=== PATIENT | female | born 1935 | race Caucasian/White ===

== ENCOUNTER 2017-02-07 18:17 | Emergency (ER) | payer MEDICARE ==
[~2017-02-07] VITALS: Ht 165.1 cm; Wt 60.7 kg
[~2017-02-07 18:17] MED LIST: AMAN100 PO; B-CO1TAB5 PO; CARB25TA PO; COUM2.5T PO; FAMO20 PO; FURO20TA PO; HYDR-3533 PO; LOVA20TA PO; MIRA1.5T3 PO
[2017-02-07 18:20] VITALS: BP 146/78; PULSE 74; RESP 16; TEMP 97.8; O2SAT 96
[2017-02-07 19:10] VITALS: BP 137/63; PULSE 65; RESP 18; O2SAT 98
[2017-02-07] MEDS ORDERED: AMAN100C18 PO (19:17)
[2017-02-07] MEDS ORDERED: MULTTAB24 PO (19:17)
[2017-02-07] MEDS ORDERED: WARF-18 PO (19:17)
[2017-02-07] MEDS ORDERED: PRAM0.12 PO (19:17)
[2017-02-07] MEDS ORDERED: SUPETAB20 PO (19:17)
[2017-02-07] MEDS ORDERED: FURO1TAB62 PO (19:17)
[2017-02-07] MEDS ORDERED: ATEN25TA PO (19:17)
[2017-02-07] MEDS ORDERED: CARB25TA16 PO (19:17)
[2017-02-07] MEDS ORDERED: LOVA20TA PO (19:17)
--- NOTE | 2017-02-07 19:41 | RADHPO ---
EXAM DATE/TIME: 02/07/2017 19:32 [facility] COMPARISON: No previous studies available for comparison. INDICATIONS : Left wrist pain; fall today. MEDICAL HISTORY : None. SURGICAL HISTORY : None. ENCOUNTER: Initial ACUITY: 1 day PAIN SCORE: 9/10 LOCATION: Left wrist. FINDINGS: No definite fractures, or dislocations are identified. No definite lytic or sclerotic lesion is seen . Slight osteopenia is seen. 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 CONCLUSION: Chronic changes and no evidence for acute fracture. Nicholas Atkinson MD on February 07, 2017 at 19:39 Board Certified Radiologist. This report was verified electronically.
--- NOTE | 2017-02-07 19:56 | PD ---
HPI Chief Complaint: Fall Time Seen by Provider: 19:54 Travel History International Travel<30 days: No Contact w/Intl Traveler<30days: No Traveled to known affect area: No History of Present Illness HPI 82-year-old female presents to the emergency department by private transportation the care of her spouse for evaluation of left wrist injury status post non-syncopal slip and fall just prior to arrival to the emergency room for it. Patient states she was in her house using her long shoehorn to put on her shoes and lost her balance and fell down. Patient landed supporting her fall with her outstretched left upper extremity with injury to the left wrist. Patient states she does not believe it's broken became to the emergency room due to soreness to have an x-ray. Patient also reports she did hit her head there is bruising to the right parietal scalp. Patient states she did not lose consciousness. Patient denies any head pain neck pain back pain chest pain rib pain painful breathing shortness of breath abdominal pain pelvic pain or other extremity injury. Patient states she does take warfarin for history of atrial fibrillation. Patient reports that she falls frequently due to balance disturbance secondary to parkinsonism. Patient states no preceding dizziness headache visual disturbance chest pain palpitations shortness of breath sweats nausea vomiting abdominal pain or weakness and no post-fall complaint of dizziness headache visual disturbance chest pain palpitations shortness breath sweats nausea vomiting abdominal pain generalized weakness or focal upper extremity lower extremity numbness tingling or weakness. Patient does complain of left wrist pain without deformity or swelling. Patient reports for his pain is 8/10 in intensity. Ice was applied in triage. Patient states her last dose of warfarin was at 7:30 AM today. Patient does not report any increased bruising epistaxis gum bleeding hemoptysis hematemesis hematuria or melena hematochezia. [facility] Past Medical History Narrative Medical Warfarin therapy atrial fibrillation CVA Parkinson's disease GERD pacemaker hypertension cholecystectomy tonsillectomy breast augmentation; no tobacco use; nursing notes reviewed Hx Anticoagulant Therapy: Yes Arthritis: Yes Atrial Fibrillation: Yes (HX OF AFIB) Autoimmune Disease: No Blood Disorders: No Anxiety: No Depression: No Heart Rhythm Problems: Yes Cancer: Yes Cardiovascular Problems: Yes (AFIB) High Cholesterol: No Chest Pain: No Congestive Heart Failure: No Cerebrovascular Accident: Yes Diabetes: No Diminished Hearing: No Endocrine: No Gastrointestinal Disorders: Yes (REFLUX) GERD: Yes Genitourinary: No Hepatitis: No Hiatal Hernia: No Hypertension: Yes Immune Disorder: No Implanted Vascular Access Dvce: Yes Musculoskeletal: Yes (ARTHRITIS) Neurologic: Yes (PARKINSONS) Parkinson's Disease: Yes Psychiatric: No Reproductive: No Respiratory: Yes Integumentary: No Immunizations Current: Yes Migraines: No Radiation Therapy: Yes Seizures: No Sleep Apnea: No Thyroid Disease: No Ulcer: No Tetanus Vaccination: < 5 Years Influenza Vaccination: No ?: Not Menopausal: Yes Past Surgical History Abdominal Surgery: Yes (cholecystectomy) AICD: No Body Medical Devices: BREAST . Cardiac Surgery: Yes (PACEMAKER) Cholecystectomy: Yes Eye Surgery: Yes (CATARACT) Genitourinary Surgery: Yes (BLADDER LIFT) Joint Replacement: No Neurologic Surgery: No Pacemaker: Yes Thoracic Surgery: No Tonsillectomy: Yes Other Surgery: Yes (VALVE REGURG./ANGIOPLASTY OF LEFT LEG) Social History Alcohol Use: Yes (SMALL GLASS OF WINE DAILY ) Tobacco Use: No Substance Use: No Allergies-Medications (Allergen,Severity, Reaction): Coded Allergies: Betadine (Unverified Allergy, Severe, RASH, 02/07/17) TOPICAL Neomycin (Verified Allergy, Severe, RASH, 02/07/17) NEOSPORIN Neosporin (Verified Allergy, Severe, RASH, 02/07/17) CONFIRM? Procaine (Verified Allergy, Severe, RASH, 02/07/17) CONFIRM? Uncoded Allergies: MYCINS (Allergy, Severe, 02/24/16) TOPICAL ANTIBIOTICS (Allergy, Mild, 05/09/06) Reported Meds & Prescriptions Reported Meds & Active Scripts Active Reported Multi For Her (Multiple Vitamins W/ Minerals) 1 Tab Tab 1 Tab PO DAILY Warfarin 2.5 Mg Tab 2.5 Mg PO DAILY Lovastatin 20 Mg Tab 20 Mg PO DAILY Amantadine (Amantadine HCl) 100 Mg Cap 100 Mg PO TID Carbidopa-Levodopa ER 25-100 Mg Tab 1 Tab PO TID Pramipexole (Pramipexole Dihydrochloride) 0.125 Mg Tab 0.125 Mg PO TID Lasix (Furosemide) 20 Mg Tab 20 Mg PO DAILY Atenolol 25 Mg Tab 25 Mg PO BID Super B Complex Maxi (B-Complex W/ Folic Acid) 1 Tab 1 Tab PO DAILY Review of Systems Except as stated in HPI: all other systems reviewed are Neg General / Constitutional: No: Fever, Chills HENT: No: Congestion, Nosebleed, Gingival Bleeding Cardiovascular: No: Chest Pain or Discomfort Respiratory: No: Shortness of Breath, Hemoptysis Gastrointestinal: No: Nausea, Vomiting, Hematemesis, Hematochezia Genitourinary: No: Urgency, Frequency, Dysuria, Hematuria, Flank Pain Musculoskeletal: Positive: Limited ROM (left wrist), Pain (left wrist) Skin: No Rash Neurologic: No: Weakness, Dizziness, Syncope, Focal Abnormalities, Coordination Problem, Headache, Change in Mentation Psychiatric: No: Anxiety Hematologic/Lymphatic: No: Easy Bruising Physical Exam Narrative GENERAL: Well-developed well-nourished elderly female in no acute distress no respiratory distress SKIN: Warm and dry. HEAD: Atraumatic. Normocephalic except for small 1 cm area of ecchymosis to the right parietal scalp no scalp soft tissue swelling no tenderness to palpation no abrasion no laceration no bony step-off. EYES: Pupils equal and round. No scleral icterus. No injection or drainage. ENT: No nasal bleeding or discharge. Mucous membranes pink and moist. NECK: Trachea midline. No JVD. No midline tenderness to direct palpation along the cervical spine no bony tenderness no step-off patient demonstrates supple range of motion about the exam stretcher and converses between her and medical staff. CARDIOVASCULAR: Regular rate and rhythm. Chest wall: Nontender to palpation no point bony tenderness. RESPIRATORY: No accessory muscle use. Clear to auscultation. Breath sounds equal bilaterally. GASTROINTESTINAL: Abdomen soft, non-tender, nondistended. Hepatic and splenic margins not palpable. MUSCULOSKELETAL: Extremities without clubbing, cyanosis, or edema. No obvious deformities. Attention left wrist chronic arthritic changes no soft tissue swelling no point tenderness to direct palpation no point tenderness to the anatomical snuffbox neurovascular tendon exam intact thumb apposition intact wrist extension and flexion intact. Proximally left upper extremity no forearm elbow upper arm or shoulder point tenderness soft tissue swelling deformity or decreased range of motion. NEUROLOGICAL: Awake and alert. No obvious cranial nerve deficits. Motor grossly within normal limits. Five out of 5 muscle strength in the arms and legs. Normal speech. PSYCHIATRIC: Appropriate mood and affect; insight and judgment normal. Data Data Last Documented VS Vital Signs Date Time Temp Pulse Resp B/P Pulse Ox O2 Delivery O2 Flow Rate FiO2 4/20/17 19:42 16 96 Room Air 02/07/17 19:10 65 137/63 02/07/17 18:[address] Brain W/O Iv Contrast(Rout) (02/07/17 ) Wrist, Complete ([id number]) (02/07/17 ) Ice/Cold Pack (02/07/17 19:23) Prothrombin Time / Inr (Pt) (02/07/17 19:23) Splint Or Brace Apply/Monitor (02/07/17 20:10) [facility] Medical Decision Making Medical Screen Exam Complete: Yes Emergency Medical Condition: Yes Medical Record Reviewed: Yes Differential Diagnosis Wrist sprain strain fracture, scalp contusion, minor CHI, ICH, skull fracture, Coumadin coagulopathy, exacerbation of parkinsonism, arrhythmia Narrative Course Discussed with patient and spouse plan for CT brain noncontrast x-ray of the left wrist and obtaining an INR; patient does not want any further testing such as urinalysis and EKG. Auscultation and palpation of pulse patient has regular rate and rhythm without ectopy. No recent urinary symptoms. @1955 Patient refuses to have been a puncture for specimen collection in order to have her INR checked area patient is on Coumadin/warfarin for history of atrial fibrillation. Patient also does not want to have CT brain noncontrast after hitting her head however discussion conducted with spouse at bedside and patient now agrees to have CT imaging of the brain. Patient continues to refuse to have INR checked. Imaging of the wrist has been performed this study has been read by radiologist Dr. Atkinson history identifies no acute bony injury specifically no fracture chronic degenerative changes and arthritic changes noted. Patient has been informed of wrist imaging results. @2019 [address] brain noncontrast imaging results read by radiologist Dr. Atkinson no acute process specifically no bleed or mass effect. Again patient offered to have INR checked due to risk of prolonged INR May the patient at risk for delayed bleed. This was all discussed in detail with the patient with the spouse at the bedside and patient continues to refuse to have her INR checked she is ready to go home; risk of delayed intracranial bleed also discussed as concern for not knowing her current INR. Patient is willing to have splint applied to wrist. The patient is encouraged to have INR checked and to return immediately to the emergency department for headache dizziness or any concerns. Diagnosis Primary Impression: Left wrist sprain Qualified Code: S63.502A - Left wrist sprain, initial encounter Additional Impression: Mild closed head injury Qualified Code: S09.90XA - Mild closed head injury, initial encounter Referrals: Primary Care Physician 1 day Patient Instructions: General Instructions Additional Instructions: Wear wrist splint use ice intermittently for next 12-24 hours to decrease swelling to wrist and scalp Follow head injury precautions 24 hours Follow-up with primary care provider call office in a.m. to schedule follow-up appointment Follow up with orthopedist for any persistent wrist pain Return to the emergency department for any concerns or change in condition May use acetaminophen/Tylenol as needed for pain affecting the wrist or scalp; do not use aspirin, ibuprofen, Advil, Motrin, Aleve, Naprosyn/naproxen Med/Other Pt SpecificInfo: No Change to Meds Disposition: 01 DISCHARGE HOME Condition: Stable Ca Davenport MD Feb 07, 2017 19:56
--- NOTE | 2017-02-07 20:13 | RADHPO ---
EXAM DATE/TIME: 02/07/2017 19:58 [facility] COMPARISON: MRI BRAIN W/O CONTRAST, December 04, 2015, 16:47. CT BRAIN W/O CONTRAST, February 15, 2016, 21:42. INDICATIONS : Mechanical fall. Frontal head trauma. RADIATION DOSE: 59.82 CTDIvol (mGy) MEDICAL HISTORY : Parkinson's. Cerebrovascular disease. SURGICAL HISTORY : Pacemaker. ENCOUNTER: Initial ACUITY: 1 day PAIN SCALE: 7/10 LOCATION: cranial TECHNIQUE: Multiple contiguous axial images were obtained of the head. Using automated exposure control and adj ustment of the mA and/or kV according to patient size, radiation dose was kept as low as reasonably a chievable to obtain optimal diagnostic quality images. FINDINGS: There is no evidence for intracranial hemorrhage, mass effect, mass lesions, or edema. The visualize d bony structures appear intact. Slight degree of brain atrophy is seen. Slight periventricular whit e matter changes are seen nonspecific mostly consistent with chronic small vessel ischemic changes. There are no signs of acute infarction for technique. There is also encephalomalacia in the left occi pital lobe chronic in nature at the site of prior infarction. CONCLUSION: Slight atrophic and small vessel ischemic changes without any evidence for acute hemorrhage or mass effect. Nicholas Atkinson MD on February 07, 2017 at 20:09 Board Certified Radiologist. This report was verified electronically.
== END 2017-02-07 20:54 | disposition home or self-care (01) ==
LOC: PHED 18:17
DX: S63.502A Unspecified sprain of left wrist, initial encounter (principal); S09.90XA Unspecified injury of head, initial encounter; I48.91 Unspecified atrial fibrillation; G20 Parkinson's disease; K21.9 Gastro-esophageal reflux disease without esophagitis; I10 Essential (primary) hypertension; Z79.01 Long term (current) use of anticoagulants; Z86.73 Personal history of transient ischemic attack (TIA), and cerebral infarction without residual deficits; Z95.0 Presence of cardiac pacemaker; W01.0XXA Fall on same level from slipping, tripping and stumbling without subsequent striking against object, initial encounter; Y93.89 Activity, other specified; Y92.009 Unspecified place in unspecified non-institutional (private) residence as the place of occurrence of the external cause; Y99.8 Other external cause status
CPT/HCPCS: 70450; 73110; 99284; L3908

== ENCOUNTER 2017-05-06 09:56 | Emergency (ER) | payer MEDICARE ==
[~2017-05-06] VITALS: Ht 162.6 cm; Wt 58.7 kg
[~2017-05-06 09:56] MED LIST changes: -AMAN100 PO; +AMAN100C18 PO; +ATEN25TA PO; -B-CO1TAB5 PO; -CARB25TA PO; +CARB25TA16 PO; -COUM2.5T PO; -FAMO20 PO; +FURO1TAB62 PO; -FURO20TA PO; -HYDR-3533 PO; -MIRA1.5T3 PO; +MULTTAB24 PO; +PRAM0.12 PO; +SUPETAB20 PO; +WARF-18 PO
[2017-05-06 10:04] VITALS: PULSE 85; RESP 14; TEMP 97.7; O2SAT 96
[2017-05-06] MEDS ORDERED: VITA150T PO (10:50)
[2017-05-06] MEDS ORDERED: AMAN100T PO (10:50)
[2017-05-06 11:00] VITALS: BP 176/88; PULSE 72; RESP 16; O2SAT 96
--- NOTE | 2017-05-06 11:26 | PD ---
HPI Chief Complaint: Skin Problem Time Seen by Provider: 11:10 Travel History International Travel<30 days: No Contact w/Intl Traveler<30days: No Traveled to known affect area: No History of Present Illness HPI 82 year-old female presents to the emergency room for evaluation of skin tear to the left elbow that occurred 2 days ago. Patient states she tripped over her feet in her RV struck her left elbow on the dresser drawer before striking her right middle back and then falling to the ground. She also got cut on the back. Patient cleaned her wound with hydrogen peroxide and then wrapped them with Band-Aids. States she has been changing it daily but it bleeds every time she removes Band-Aid. States she just started using nonstick dressings today. She is concerned because of how severe the wound is and how long it is taking to heal. States the wound on her back healed much quicker. She hit the back of her head but denies loss of consciousness. She denies any significant pain. He has been ambulatory since falling. No nausea, vomiting, headache, dizziness, blurry vision. She is not on blood thinners. PFSH Past Medical History Hx Anticoagulant Therapy: Yes Arthritis: Yes Atrial Fibrillation: Yes (HX OF AFIB) Autoimmune Disease: No Blood Disorders: No Anxiety: No Depression: No Heart Rhythm Problems: Yes Cancer: Yes Cardiovascular Problems: Yes (AFIB) High Cholesterol: No Chest Pain: No Congestive Heart Failure: No Cerebrovascular Accident: Yes Diabetes: No Diminished Hearing: No Endocrine: No Gastrointestinal Disorders: Yes (REFLUX) GERD: Yes Genitourinary: No Hepatitis: No Hiatal Hernia: No Hypertension: Yes Immune Disorder: No Implanted Vascular Access Dvce: Yes Musculoskeletal: Yes (ARTHRITIS) Neurologic: Yes (PARKINSONS) Parkinson's Disease: Yes Psychiatric: No Reproductive: No Respiratory: Yes Integumentary: No Immunizations Current: Yes Migraines: No Radiation Therapy: Yes Seizures: No Sleep Apnea: No Thyroid Disease: No Ulcer: No Tetanus Vaccination: Unknown ?: Not Menopausal: Yes Past Surgical History Abdominal Surgery: Yes (cholecystectomy) AICD: No Body Medical Devices: BREAST . Cardiac Surgery: Yes (PACEMAKER) Cholecystectomy: Yes Eye Surgery: Yes (CATARACT) Genitourinary Surgery: Yes (BLADDER LIFT) Joint Replacement: No Neurologic Surgery: No Pacemaker: Yes Thoracic Surgery: No Tonsillectomy: Yes Other Surgery: Yes (VALVE REGURG./ANGIOPLASTY OF LEFT LEG) Social History Alcohol Use: Yes (SMALL GLASS OF WINE DAILY ) Tobacco Use: No Substance Use: No Allergies-Medications (Allergen,Severity, Reaction): Coded Allergies: Betadine (Unverified Allergy, Severe, RASH, 02/07/17) TOPICAL Neomycin (Verified Allergy, Severe, RASH, 02/07/17) NEOSPORIN Neosporin (Verified Allergy, Severe, RASH, 02/07/17) CONFIRM? Procaine (Verified Allergy, Severe, RASH, 02/07/17) CONFIRM? Uncoded Allergies: MYCINS (Allergy, Severe, 02/24/16) TOPICAL ANTIBIOTICS (Allergy, Mild, 05/09/06) Reported Meds & Prescriptions Reported Meds & Active Scripts Active Reported Amantadine (Amantadine HCl) 100 Mg Tab 100 Mg PO TID Super B Complex (Vitamin B Complex Vit C No.4) 150 Mg Tablet 1,000 Mg PO DAILY Multi For Her (Multiple Vitamins W/ Minerals) 1 Tab Tab 1 Tab PO DAILY Lovastatin 20 Mg Tab 20 Mg PO DAILY Carbidopa-Levodopa ER 25-100 Mg Tab 1 Tab PO TID Pramipexole (Pramipexole Dihydrochloride) 0.125 Mg Tab 0.125 Mg PO TID Lasix (Furosemide) 20 Mg Tab 20 Mg PO DAILY Atenolol 25 Mg Tab 25 Mg PO BID Review of Systems Except as stated in HPI: all other systems reviewed are Neg Physical Exam Narrative GENERAL: Well-nourished, well-developed female in no acute distress. Afebrile. Ambulatory. SKIN: Focused skin assessment warm/dry. There is a healing superficial abrasion to the right upper back. There is a 6x3 cm skin tear to the left lateral elbow. No purulent drainage. There is slight bleeding. HEAD: Normocephalic. EYES: No scleral icterus. No injection or drainage. EARS: Bilateral pinnae and external canals appear within normal limits. Bilateral tympanic membranes without erythema, dullness or perforation. No hemotympanum. NECK: Supple, trachea midline. No JVD or lymphadenopathy. CARDIOVASCULAR: Regular rate and rhythm without murmurs, gallops, or rubs. RESPIRATORY: Breath sounds equal bilaterally. No accessory muscle use. MUSCULOSKELETAL: No cyanosis, or edema. Full range of motion in upper and lower extremities. Strength 5/5 and equal in upper and lower extremities. Data Data Last Documented VS Vital Signs Date Time Temp Pulse Resp B/P Pulse Ox O2 Delivery O2 Flow Rate FiO2 05/06/17 11:00 72 16 176/88 96 Room Air 05/06/17 10:04 97.7 [facility] Medical Decision Making Medical Screen Exam Complete: Yes Emergency Medical Condition: Yes Medical Record Reviewed: Yes Differential Diagnosis Laceration, abrasion, skin tear, wound Narrative Course 82 year-old female presents to the emergency room for evaluation of left elbow skin tear that happened 3 days ago. Denies any other complaints. Patient tripped and fell in her RV cutting her elbow on the dresser before hitting the ground. Patient had her head but denies loss of consciousness, headache, dizziness, visual changes, nausea, and vomiting. She is not on blood thinners. No focal neurological deficits or evidence of basilar skull fracture. She has full range of motion of upper and lower extremities. Ambulatory. There is a 3 x 6 cm skin tear of the left elbow that is slightly bleeding. No evidence of infection. Patient was reassured and discharged with wound care instructions. Told to follow up with her primary care physician in one week for recheck or return for worsening symptoms. She understands and agrees to plan. Diagnosis Primary Impression: Skin tear of left elbow without complication Qualified Code: S51.012A - Skin tear of left elbow without complication, initial encounter Referrals: Primary Care Physician Patient Instructions: General Instructions, Skin Tear (ED) Additional Instructions: Rest and drink plenty of fluids. Keep wound clean and dry. Wash with antibacterial soap and water daily. Apply nonstick dressing or Vaseline to prevent sticking of dressing to wound. Follow-up with a primary care physician. Return to the emergency room for worsening symptoms. Disposition: 01 DISCHARGE HOME Condition: Stable Tori Hernandez May 06, 2017 11:26
== END 2017-05-06 11:38 | disposition home or self-care (01) ==
LOC: PHED 09:56 → PHEFT 11:38
DX: S51.012A Laceration without foreign body of left elbow, initial encounter (principal); W18.09XA Striking against other object with subsequent fall, initial encounter; Y93.89 Activity, other specified; Y92.029 Unspecified place in mobile home as the place of occurrence of the external cause
CPT/HCPCS: 99282

== ENCOUNTER 2017-05-28 13:33 | Emergency (ER) | payer MEDICARE ==
[~2017-05-28 13:33] MED LIST changes: -AMAN100C18 PO; +AMAN100T PO; -SUPETAB20 PO; +VITA150T PO; -WARF-18 PO
[2017-05-28 13:41] VITALS: BP 142/66; PULSE 80; RESP 18; TEMP 97.7; O2SAT 96
[2017-05-28] MEDS ORDERED: LIDOCAINE HCL 1% 50 ML VIAL INFIL ONE (14:00)
--- NOTE | 2017-05-28 14:05 | PD ---
HPI Chief Complaint: Fall Time Seen by Provider: 14:01 Travel History International Travel<30 days: No Contact w/Intl Traveler<30days: No Traveled to known affect area: No History of Present Illness HPI 82-year-old female presents to the emergency room via ambulance for evaluation of laceration to her nose and left second finger after trip and fall just prior to arrival. Patient tripped over her own feet and fell forward striking her nose on the ramp to her trailer. Denies loss of consciousness, headache, nausea , vomiting, dizziness, altered mental status, or visual changes. Patient stood up and got immediately into the stretcher and has not attempted to walk since then. She denies any other pain including neck pain, back pain, hip pain, upper or lower extremity pain. She is on daily aspirin. PFSH Past Medical History Hx Anticoagulant Therapy: Yes Arthritis: Yes Atrial Fibrillation: Yes (HX OF AFIB) Autoimmune Disease: No Blood Disorders: No Anxiety: No Depression: No Heart Rhythm Problems: Yes Cancer: Yes Cardiovascular Problems: Yes (AFIB) High Cholesterol: No Chest Pain: No Congestive Heart Failure: No Cerebrovascular Accident: Yes Diabetes: No Diminished Hearing: No Endocrine: No Gastrointestinal Disorders: Yes (REFLUX) GERD: Yes Genitourinary: No Hepatitis: No Hiatal Hernia: No Hypertension: Yes Immune Disorder: No Implanted Vascular Access Dvce: Yes Musculoskeletal: Yes (ARTHRITIS) Neurologic: Yes (PARKINSONS) Parkinson's Disease: Yes Psychiatric: No Reproductive: No Respiratory: Yes Integumentary: No Immunizations Current: Yes Migraines: No Radiation Therapy: Yes Seizures: No Sleep Apnea: No Thyroid Disease: No Ulcer: No Tetanus Vaccination: Unknown ?: Not Menopausal: Yes Past Surgical History Abdominal Surgery: Yes (cholecystectomy) AICD: No Body Medical Devices: BREAST . Cardiac Surgery: Yes (PACEMAKER) Cholecystectomy: Yes Eye Surgery: Yes (CATARACT) Genitourinary Surgery: Yes (BLADDER LIFT) Joint Replacement: No Neurologic Surgery: No Pacemaker: Yes Thoracic Surgery: No Tonsillectomy: Yes Other Surgery: Yes (VALVE REGURG./ANGIOPLASTY OF LEFT LEG) Social History Alcohol Use: Yes (SMALL GLASS OF WINE DAILY ) Tobacco Use: No Substance Use: No Allergies-Medications (Allergen,Severity, Reaction): Coded Allergies: Betadine (Unverified Allergy, Severe, RASH, 02/07/17) TOPICAL Neomycin (Verified Allergy, Severe, RASH, 02/07/17) NEOSPORIN Neosporin (Verified Allergy, Severe, RASH, 02/07/17) CONFIRM? Procaine (Verified Allergy, Severe, RASH, 02/07/17) CONFIRM? Uncoded Allergies: MYCINS (Allergy, Severe, 02/24/16) TOPICAL ANTIBIOTICS (Allergy, Mild, 05/09/06) Reported Meds & Prescriptions Reported Meds & Active Scripts Active Reported Amantadine (Amantadine HCl) 100 Mg Tab 100 Mg PO TID Super B Complex (Vitamin B Complex Vit C No.4) 150 Mg Tablet 1,000 Mg PO DAILY Multi For Her (Multiple Vitamins W/ Minerals) 1 Tab Tab 1 Tab PO DAILY Lovastatin 20 Mg Tab 20 Mg PO DAILY Carbidopa-Levodopa ER 25-100 Mg Tab 1 Tab PO TID Pramipexole (Pramipexole Dihydrochloride) 0.125 Mg Tab 0.125 Mg PO TID Lasix (Furosemide) 20 Mg Tab 20 Mg PO DAILY Atenolol 25 Mg Tab 25 Mg PO BID Review of Systems Except as stated in HPI: all other systems reviewed are Neg Physical Exam Narrative GENERAL: Well-developed, well-nourished female in no acute distress. Afebrile. Ambulatory. SKIN: Warm and dry. No erythema or ecchymosis. L-shaped 2 cm laceration to the right side of the nose. 1 cm skin tear of the left second finger over the PIP. HEAD: Atraumatic. Normocephalic. No mendoza sign or raccoon eyes. EYES: PERRL, EOMI, no discharge or injection. No scleral icterus. EARS: Bilateral external canals are occluded. NECK: Trachea midline. No JVD. No midline tenderness. Full range of motion. CARDIOVASCULAR: Regular rate and rhythm. No murmur appreciated. RESPIRATORY: No accessory muscle use. Clear to auscultation. Breath sounds equal bilaterally. No crackles, rales, wheezes, or rhonchi. BACK: No CVA tenderness. No rash. No point tenderness on palpation of the spine. NEUROLOGICAL: Awake and alert. Cranial nerves 2 through 12 intact. Motor grossly within normal limits. Normal speech. Strength 5/5 and equal in upper and lower extremities. PSYCHIATRIC: Appropriate mood and affect; insight and judgment normal. Data Data Last Documented VS Vital Signs Date Time Temp Pulse Resp B/P Pulse Ox O2 Delivery O2 Flow Rate FiO2 05/28/17 13:41 97.7 80 18 142/[address] Brain W/O Iv Contrast(Rout) (05/28/17 ) Ct Facial Bones W/O Iv Cont (05/28/17 ) Lidocaine 1% Inj (50 Ml) (Xylocaine 1% I (05/28/17 14:00) Tetanus/Diphtheria Tox Adult (Tetanus/Di (05/28/17 14:15) MDM Medical Decision Making Medical Screen Exam Complete: Yes Emergency Medical Condition: Yes Medical Record Reviewed: Yes Differential Diagnosis Fall, head injury, laceration, skin tear Narrative Course 82-year-old female presents to the emergency room for evaluation of laceration to the nose and left finger after trip and fall just prior to arrival. Patient tripped over her feet and fell forward striking her nose on the trailer ramp. She denies loss of consciousness, headache, dizziness, nausea, vomiting, or altered mental status. She does take 81 mg baby aspirin. She is well- appearing in the emergency room. No focal neurological deficits. Physical exam reveals a 1 cm laceration to the left second finger and bottom of the nose and a 2 cm laceration to the top of the nose. Denies any other complaints. CT of the head and face are negative for any abnormality. Lacerations are thoroughly cleansed and then repaired, see procedure for details. Patient discharged with wound care instructions and told to follow up with a primary care physician or return for worsening symptoms. She understands and agrees to plan. Procedures Procedure Narrative LACERATION LOCATION: Top of Nose LENGTH: 2 cm NUMBER OF STITCHES/NAEEM: 5 simple interrupted REPAIR: The area of the laceration was prepped with Betadine and sterilely draped. The laceration was infiltrated with 1% lidocaine. The wound was copiously irrigated and explored without evidence of foreign body, tendon injury or neurovascular injury. The wound was closed using 6-0 Prolene. This was a single layer repair. A sterile dressing was applied. The patient was advised to keep the dressing clean and dry. Patient tolerated the procedure well. LACERATION LOCATION: Bottom of Nose LENGTH: 1 cm NUMBER OF STITCHES/NAEEM: 2 simple interrupted REPAIR: The area of the laceration was prepped with Betadine and sterilely draped. The laceration was infiltrated with 1% lidocaine. The wound was copiously irrigated and explored without evidence of foreign body, tendon injury or neurovascular injury. The wound was closed using 6-0 Prolene. This was a single layer repair. A sterile dressing was applied. The patient was advised to keep the dressing clean and dry. Patient tolerated the procedure well. LACERATION LOCATION: Left second finger LENGTH: 2 cm NUMBER OF STITCHES/NAEEM: 3 simple interrupted REPAIR: The area of the laceration was prepped with Betadine and sterilely draped. The laceration was infiltrated with 1% lidocaine. The wound was copiously irrigated and explored without evidence of foreign body, tendon injury or neurovascular injury. The wound was closed using 5-0 Prolene. This was a single layer repair. A sterile dressing was applied. The patient was advised to keep the dressing clean and dry. Patient tolerated the procedure well. Diagnosis Primary Impression: Laceration of nose Qualified Code: S01.21XA - Laceration of nose, initial encounter Additional Impression: Finger laceration Qualified Code: S61.210A - Laceration of right index finger without foreign body without damage to nail, initial encounter Referrals: Primary Care Physician Patient Instructions: Facial Laceration (ED), Finger Laceration (ED), General Instructions Additional Instructions: Keep wound clean and dry. Apply triple antibiotic ointment daily. Sutures in the face should come out in 5 days. Sutures on the finger should come out in 10 days. Consider purchasing a walker. Apply ice to the affected area for 20 minutes at a time, as needed for pain and swelling. Follow-up with a primary care physician. Return to the emergency room for worsening symptoms. Med/Other Pt SpecificInfo: Prescription(s) given Disposition: 01 DISCHARGE HOME Condition: Stable Tori Hernandez May 28, 2017 14:05
[2017-05-28] MEDS ORDERED: TETANUS/DIPHTHERIA TOXOID ADULT 0.5 ML VIAL IM ONE (14:15)
--- NOTE | 2017-05-28 14:33 | RADRPT ---
EXAM DATE/TIME: 05/28/2017 14:21 [facility] COMPARISON: CT BRAIN W/O CONTRAST, February 07, 2017, 19:58. INDICATIONS : Fall. Hit nose on pavement. RADIATION DOSE: 62.51 CTDIvol (mGy) MEDICAL HISTORY : Cerebrovascular disease. Cardiovascular disease Hypertension.Anticoagulant therapy. SURGICAL HISTORY : Pacemaker. ENCOUNTER: Initial ACUITY: 1 day PAIN SCALE: 5/10 LOCATION: cranial TECHNIQUE: Multiple contiguous axial images were obtained of the head. Using automated exposure control and adj ustment of the mA and/or kV according to patient size, radiation dose was kept as low as reasonably a chievable to obtain optimal diagnostic quality images. DICOM format image data is available electro nically for review and comparison. FINDINGS: CEREBRUM: The ventricles are normal for age. No evidence of midline shift, mass lesion, hemorrhage or acute in farction. No extra-axial fluid collections are seen. There is a small old stable infarct in the left occipital lobe. There is a small stable calcification in the left frontal lobe. POSTERIOR FOSSA: The cerebellum and brainstem are stable. There is a stable old infarct involving the medial right cer ebellar hemisphere.. The 4th ventricle is midline. The cerebellopontine angle is unremarkable. EXTRACRANIAL: The visualized portion of the orbits is intact. SKULL: The calvaria is intact. No evidence of skull fracture. CONCLUSION: 1. Stable CT scan of the brain compared to the prior examination. 2. No focal or acute intracranial hemorrhage. 3. 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 Mo Chris MD on May 28, 2017 at 14:30 Board Certified Radiologist. This report was verified electronically.
--- NOTE | 2017-05-28 14:43 | RADRPT ---
EXAM DATE/TIME: 05/28/2017 14:21 [facility] COMPARISON: No previous studies available for comparison. INDICATIONS : Fall. Hit nose on pavement. RADIATION DOSE: 34.85 CTDIvol (mGy) MEDICAL HISTORY : Cardiovascular disease. Cerebrovascular disease. Hypertension.Anticoagulant therapy. SURGICAL HISTORY : Pacemaker. ENCOUNTER: Initial ACUITY: 1 day PAIN SCORE: 5/10 LOCATION: facial TECHNIQUE: Volumetric scanning of the facial bones was performed. Using automated exposure control and adjustme nt of the mA and/or kV according to patient size, radiation dose was kept as low as reasonably achiev able to obtain optimal diagnostic quality images. DICOM format image data is available electronicall y for review and comparison. FINDINGS: ORBITS: The orbital and infraorbital osseous structures are intact. The retroconal structures have a normal configuration. No radiopaque foreign bodies are seen. NASAL BONE: The nasal bone and maxillary spine are intact ZYGOMATIC ARCHES: Symmetric without evidence of fracture. SINUSES: Chronic sinus disease in the right maxillary sinus. Otherwise, the paranasal sinuses are clear. No ai r-fluid levels. NASAL CAVITY: Nasal septal deviation to the right. The nasal cavity is unremarkable. SOFT TISSUES: No radiopaque foreign bodies seen. No soft-tissue swelling is seen. INTRACRANIAL: No intracranial air seen. CRIBIFORM PLATE: Grossly intact. CONCLUSION: 1. No evidence of acute bony fracture involving the nasal bones. 2. Chronic right maxillary sinus disease. 3. Facial bones grossly intact. Mo Chris MD on May 28, 2017 at 14:38 Board Certified Radiologist. This report was verified electronically.
== END 2017-05-28 15:57 | disposition home or self-care (01) ==
LOC: PHEFT 13:33
DX: S01.21XA Laceration without foreign body of nose, initial encounter (principal); S61.211A Laceration without foreign body of left index finger without damage to nail, initial encounter; I48.91 Unspecified atrial fibrillation; I10 Essential (primary) hypertension; G20 Parkinson's disease; K21.9 Gastro-esophageal reflux disease without esophagitis; Z86.73 Personal history of transient ischemic attack (TIA), and cerebral infarction without residual deficits; Z79.82 Long term (current) use of aspirin; Z23 Encounter for immunization; Z95.0 Presence of cardiac pacemaker
CPT/HCPCS: 12001; 12013; 70450; 70486; 90471; 90714

== ENCOUNTER 2017-06-16 12:31 | Emergency (ER) | payer MEDICARE ==
[2017-06-16 12:36] VITALS: BP 156/72; PULSE 74; RESP 16; TEMP 98.2; O2SAT 97
--- NOTE | 2017-06-16 13:15 | PD ---
HPI . Scalp laceration Chief Complaint: Head Injury Time Seen by Provider: 12:58 Travel History International Travel<30 days: No Contact w/Intl Traveler<30days: No Traveled to known affect area: No History of Present Illness HPI Patient presents for treatment of a scalp laceration. She has frequent falls. She fell this morning striking her head on the concrete. She denies loss of consciousness. She denies any symptoms of a head injury such as headache, blurred vision, nausea, altered mental status. As her last tetanus shot was just 2 weeks ago when she suffered another fall and laceration. She has a history of Parkinson's disease. She also has a history of atrial fibrillation and has been on Coumadin. She was taken off of Coumadin a couple weeks. PFSH Past Medical History Hx Anticoagulant Therapy: Yes Arthritis: Yes Atrial Fibrillation: Yes (HX OF AFIB) Autoimmune Disease: No Blood Disorders: No Anxiety: No Depression: No Heart Rhythm Problems: Yes Cancer: Yes Cardiovascular Problems: Yes (AFIB) High Cholesterol: No Chest Pain: No Congestive Heart Failure: No Cerebrovascular Accident: Yes Diabetes: No Diminished Hearing: No Endocrine: No Gastrointestinal Disorders: Yes (REFLUX) GERD: Yes Genitourinary: No Hepatitis: No Hiatal Hernia: No Hypertension: Yes Immune Disorder: No Implanted Vascular Access Dvce: Yes Musculoskeletal: Yes (ARTHRITIS) Neurologic: Yes (PARKINSONS) Parkinson's Disease: Yes Psychiatric: No Reproductive: No Respiratory: Yes Integumentary: No Immunizations Current: Yes Migraines: No Radiation Therapy: Yes Seizures: No Sleep Apnea: No Thyroid Disease: No Ulcer: No Tetanus Vaccination: < 5 Years Influenza Vaccination: Yes Menopausal: Yes Past Surgical History Abdominal Surgery: Yes (cholecystectomy) AICD: No Body Medical Devices: BREAST AUG.. Cardiac Surgery: Yes (PACEMAKER) Cholecystectomy: Yes Eye Surgery: Yes (CATARACT) Genitourinary Surgery: Yes (BLADDER LIFT) Joint Replacement: No Neurologic Surgery: No Pacemaker: Yes Thoracic Surgery: No Tonsillectomy: Yes Other Surgery: Yes (VALVE REGURG./ANGIOPLASTY OF LEFT LEG) Social History Alcohol Use: Yes (SMALL GLASS OF WINE DAILY ) Tobacco Use: No Substance Use: No Allergies-Medications (Allergen,Severity, Reaction): Coded Allergies: bacitracin (Unverified Allergy, Severe, RASH, 06/04/17) CONFIRM? gramicidin D (Unverified Allergy, Severe, RASH, 06/04/17) CONFIRM? neomycin (Unverified Allergy, Severe, RASH, 06/04/17) CONFIRM? polymyxin B (Unverified Allergy, Severe, RASH, 06/04/17) CONFIRM? povidone-iodine (Unverified Allergy, Severe, RASH, 06/04/17) TOPICAL procaine (Unverified Allergy, Severe, RASH, 06/04/17) CONFIRM? Uncoded Allergies: MYCINS (Allergy, Severe, 02/24/16) TOPICAL ANTIBIOTICS (Allergy, Mild, 05/09/06) Reported Meds & Prescriptions Reported Meds & Active Scripts Active Reported Amantadine (Amantadine HCl) 100 Mg Tab 100 Mg PO TID Super B Complex (Vitamin B Complex Vit C No.4) 150 Mg Tablet 1,000 Mg PO DAILY Multi For Her (Multiple Vitamins W/ Minerals) 1 Tab Tab 1 Tab PO DAILY Lovastatin 20 Mg Tab 20 Mg PO DAILY Carbidopa-Levodopa ER 25-100 Mg Tab 1 Tab PO TID Pramipexole (Pramipexole Dihydrochloride) 0.125 Mg Tab 0.125 Mg PO TID Lasix (Furosemide) 20 Mg Tab 20 Mg PO DAILY Atenolol 25 Mg Tab 25 Mg PO BID Review of Systems Except as stated in HPI: all other systems reviewed are Neg Eyes: No: Blurred Vision HENT: No: Headaches Gastrointestinal: No: Nausea Neurologic: No: Syncope, Focal Abnormalities, Headache, Change in Mentation Psychiatric: Positive: Disorder of Thought ( reports apparent hallucinations. He states that she talks to herself. This is not a new problem.) Physical Exam Narrative GENERAL: Awake and alert and in no acute distress. SKIN: Warm and dry. HEAD: She has about a 1 cm laceration to the posterior scalp. Bleeding is controlled. EYES: Pupils equal and round. Extraocular are intact. NECK: Trachea midline. Neck is nontender. Full range of motion without pain. CARDIOVASCULAR: Regular rate and rhythm. RESPIRATORY: No accessory muscle use. MUSCULOSKELETAL: No obvious deformities. No edema. NEUROLOGICAL: Awake and alert. No obvious cranial nerve deficits. Motor grossly within normal limits. Normal speech. PSYCHIATRIC: Appropriate mood and affect; insight and judgment normal. Data Data Last Documented VS Vital Signs Date Time Temp Pulse Resp B/P (MAP) Pulse Ox O2 Delivery O2 Flow Rate FiO2 06/16/17 12:36 98.2 74 16 156/72 (100) 97 Room Air Orders Orders Ct Brain W/O Iv Contrast(Rout) (06/16/17 13:05) MDM Medical Decision Making Medical Screen Exam Complete: Yes Emergency Medical Condition: Yes Medical Record Reviewed: Yes (medical history includes Parkinson's disease, hypertension, hyperlipidemia, atrial fibrillation, sick sinus syndrome and previous CVA.) Differential Diagnosis My differential diagnosis of head trauma includes but is not limited to scalp contusion, concussion, intracerebral hemorrhage. Narrative Course This patient presents with a scalp laceration. She is elderly and has been on anticoagulation until the recent past. Therefore, a head CT will be done rule out bleed. Last Impressions Head CT 06/16/17 1305 Signed Impressions: Service Date/Time: Friday, June 16, 2017 13:26 - CONCLUSION: No significant change has occurred. . Kendra Montes MD Procedures Procedure Narrative LACERATION LOCATION: Scalp LENGTH: 2 cm NUMBER OF STITCHES/NAEEM: 2 REPAIR: The area of the laceration was prepped with saline. The wound was closed using naeem. This was a single layer repair. Patient tolerated the procedure well. (She declined lidocaine) Diagnosis Primary Impression: Scalp laceration Qualified Codes: S01.01XA - Laceration without foreign body of scalp, initial encounter Patient Instructions: General Instructions, Laceration (DC) Additional Instructions: Clean the wound daily in the shower with a mild shampoo such as baby shampoo. See your doctor in 7 days for staple removal. Seek care sooner for redness, drainage, warmth, unusual pain. Disposition: 01 DISCHARGE HOME Condition: Stable Michelle Reynolds MD Jun 16, 2017 13:15
--- NOTE | 2017-06-16 13:38 | RADRPT ---
EXAM DATE/TIME: 06/16/2017 13:26 [facility] COMPARISON: CT BRAIN W/O CONTRAST, May 28, 2017, 14:21. INDICATIONS : Fall. RADIATION DOSE: 60.98 CTDIvol (mGy) MEDICAL HISTORY : Cardiovascular disease. Hypertension. Cerebrovascular disease. SURGICAL HISTORY : Pacemaker. ENCOUNTER: Initial ACUITY: 1 day PAIN SCALE: 3/10 LOCATION: cranial TECHNIQUE: Multiple contiguous axial images were obtained of the head. Using automated exposure control and adj ustment of the mA and/or kV according to patient size, radiation dose was kept as low as reasonably a chievable to obtain optimal diagnostic quality images. DICOM format image data is available electro nically for review and comparison. FINDINGS: CEREBRUM: There are stable focal areas of encephalomalacia involving the left occipital lobe and right cerebell um. The ventricles are normal in size and are midline. The escamilla-white matter demonstrates normal diff erentiation. No evidence of intra-axial or extra-axial fluid collection. No mass effect or midline sh ift. POSTERIOR FOSSA: The cerebellum and brainstem are intact. The 4th ventricle is midline. The cerebellopontine angle i s unremarkable. EXTRACRANIAL: The visualized portion of the orbits is intact. SKULL: The calvaria is intact. No evidence of skull fracture. CONCLUSION: No significant change has occurred. . Kendra Montes MD on June 16, 2017 at 13:35 Board Certified Radiologist. This report was verified electronically.
[2017-06-16 14:12] VITALS: BP 142/70; PULSE 72; RESP 18; O2SAT 97
[2017-06-17] MEDS ORDERED: METO25TA3 PO ×2 (14:58)
[2017-06-17] MEDS ORDERED: ASPI81CH CHEW (15:09)
== END 2017-06-16 14:12 | disposition home or self-care (01) ==
LOC: PHED 12:31
DX: S01.01XA Laceration without foreign body of scalp, initial encounter (principal); W19.XXXA Unspecified fall, initial encounter; I10 Essential (primary) hypertension; I25.10 Atherosclerotic heart disease of native coronary artery without angina pectoris; I48.91 Unspecified atrial fibrillation; K21.9 Gastro-esophageal reflux disease without esophagitis; M19.90 Unspecified osteoarthritis, unspecified site; G20 Parkinson's disease; Z79.01 Long term (current) use of anticoagulants; Z86.73 Personal history of transient ischemic attack (TIA), and cerebral infarction without residual deficits; Z95.0 Presence of cardiac pacemaker
CPT/HCPCS: 12001; 70450

== ENCOUNTER 2017-06-17 14:40 | Emergency (ER) | payer MEDICARE ==
[2017-06-17 14:45] VITALS: BP 152/85; PULSE 74; RESP 18; O2SAT 99
[2017-06-17] MEDS ORDERED: METO25TA3 PO ×2 (14:58)
[2017-06-17] MEDS ORDERED: ASPI81CH CHEW (15:09)
[2017-06-17] MEDS ORDERED: SODIUM CHLORIDE 0.9% FLUSH 10 ML FLUSH IVF PRN (15:15)
[2017-06-17 15:25] LABS: AUTOMATED NEUTROPHIL # 7.1 TH/MM3 (1.8-7.7); BASOPHIL # 0.1 TH/MM3 (0-0.2); BASOPHIL % 0.6 % (0.0-2.0); EOSINOPHIL # 0.2 TH/MM3 (0-0.4); EOSINOPHIL % 2.4 % (0.0-4.0); HEMATOCRIT 47.7 % (35.0-46.0); HEMO FLAGS DIFF FINAL; LYMPH % 18.3 % (9.0-44.0); LYMPHOCYTE # 1.9 TH/MM3 (1.0-4.8); MEAN CELL VOLUME 91.7 FL (80.0-100.0); MEAN CORPUSCULAR HEMOGLOBIN 30.3 PG (27.0-34.0); MONO % 8.1 % (0.0-8.0); NEUT % 70.6 % (16.0-70.0); PLATELET COUNT 206 TH/MM3 (150-450); RED CELL DISTRIBUTION WIDTH 13.5 % (11.6-17.2); WHITE BLOOD COUNT 10.1 TH/MM3 (4.0-11.0)
[2017-06-17 15:26] VITALS: O2SAT 100
[2017-06-17 15:30] LABS: CHLORIDE 105 MEQ/L (98-107); POTASSIUM 3.5 MEQ/L (3.5-5.1); SODIUM (NA) 142 MEQ/L (136-145)
[2017-06-17 15:33] LABS: ANION GAP 8 MEQ/L (5-15); MAGNESIUM 2.3 MG/DL (1.5-2.5)
[2017-06-17 15:34] LABS: BLOOD UREA NITROGEN 22 MG/DL (7-18)
[2017-06-17 15:35] LABS: APTT (PATIENT) 23.9 SEC (24.3-30.1); PROTHROMBIN TIME - PATIENT 10.5 SEC (9.8-11.6)
[2017-06-17 15:36] LABS: ALT (GPT) 23 U/L (10-53)
[2017-06-17 15:37] LABS: AST (GOT) 18 U/L (15-37); GLOMERULAR FILTRATION RATE 36 ML/MIN (>89)
[2017-06-17 15:38] LABS: TOTAL BILIRUBIN ADULT 0.5 MG/DL (0.2-1.0)
[2017-06-17 15:39] LABS: ALKALINE PHOSPHATASE 139 U/L (45-117)
[2017-06-17 15:41] LABS: CREATINE KINASE 62 U/L (26-192)
--- NOTE | 2017-06-17 15:43 | PD ---
HPI Chief Complaint: Dizziness Time Seen by Provider: 14:47 Travel History International Travel<30 days: No Contact w/Intl Traveler<30days: No Traveled to known affect area: No History of Present Illness HPI patient is a 82 year old female with a history of Parkinson's disease presents emergency department for evaluation chiefly of shortness of breath. Patient also states she's been having some dizziness symptoms feeling like she is going to lose her balance and fall. Patient comfortably by her and together 3 of us discussed that she has a history of frequent falls. She is also been apparently having some intermittent visual hallucinations. Denies any suicidal homicidal ideation. states that live in a trailer is difficult to refer her to use her walker. Recently she's been admitted to the emergency department for a fall impacting her head. She is also had other falls leading to abrasions but thankfully no severe injuries as of yet. To the patient's chief complaint of shortness of breath states been going on for the past few days. States she has a history of blood clots in her leg on the left and has an IVC filter placed. She states that her geological e logger took her off Coumadin recently. She also has a pacemaker and a history of atrial fibrillation. Patient denies any chest pain nausea vomiting abdominal pain focalized weakness or visual deficits. States she has not fallen since her last evaluation emergency Department. PFSH Past Medical History Hx Anticoagulant Therapy: Yes Arthritis: Yes Atrial Fibrillation: Yes Autoimmune Disease: No Blood Disorders: No Anxiety: No Depression: No Heart Rhythm Problems: Yes Cancer: Yes Cardiovascular Problems: Yes (HX of A Fib, pacemaker) High Cholesterol: Yes Chest Pain: No Congestive Heart Failure: No Cerebrovascular Accident: Yes (CVA 2015) Diabetes: No Diminished Hearing: No Endocrine: No Gastrointestinal Disorders: Yes (REFLUX) GERD: Yes Genitourinary: No Hepatitis: No Hiatal Hernia: No Hypertension: Yes Immune Disorder: No Implanted Vascular Access Dvce: Yes Medical other: Yes (blood clot and stent put in the left leg) Musculoskeletal: Yes (ARTHRITIS) Neurologic: Yes (PARKINSONS) Parkinson's Disease: Yes Psychiatric: No Reproductive: No Respiratory: Yes Integumentary: No Immunizations Current: Yes Migraines: No Radiation Therapy: Yes Seizures: No Sleep Apnea: No Thyroid Disease: No Ulcer: No Tetanus Vaccination: < 5 Years Influenza Vaccination: No Menopausal: Yes Past Surgical History Abdominal Surgery: Yes (cholecystectomy) AICD: No Body Medical Devices: BREAST AUG.. Cardiac Surgery: Yes (pacemaker ) Cholecystectomy: Yes Eye Surgery: Yes (CATARACT) Genitourinary Surgery: Yes (BLADDER LIFT) Joint Replacement: No Neurologic Surgery: No Pacemaker: Yes Thoracic Surgery: No Tonsillectomy: Yes Other Surgery: Yes (skin cancer removal ) Social History Alcohol Use: Yes (socially ) Tobacco Use: No Substance Use: No Allergies-Medications (Allergen,Severity, Reaction): Coded Allergies: bacitracin (Unverified Allergy, Severe, RASH, 06/17/17) CONFIRM? gramicidin D (Unverified Allergy, Severe, RASH, 06/17/17) CONFIRM? neomycin (Unverified Allergy, Severe, RASH, 06/17/17) CONFIRM? polymyxin B (Unverified Allergy, Severe, RASH, 06/17/17) CONFIRM? povidone-iodine (Unverified Allergy, Severe, RASH, 06/17/17) TOPICAL procaine (Unverified Allergy, Severe, RASH, 06/17/17) CONFIRM? Uncoded Allergies: MYCINS (Allergy, Severe, 02/24/16) TOPICAL ANTIBIOTICS (Allergy, Mild, 05/09/06) Reported Meds & Prescriptions Reported Meds & Active Scripts Active Reported Aspirin 81 Mg Chew 81 Mg CHEW DAILY Metoprolol Tartrate 25 Mg Tab 25 Mg PO DAILY Amantadine (Amantadine HCl) 100 Mg Tab 100 Mg PO TID Multi For Her (Multiple Vitamins W/ Minerals) 1 Tab Tab 1 Tab PO DAILY Lovastatin 20 Mg Tab 20 Mg PO DAILY Carbidopa-Levodopa ER 25-100 Mg Tab 1 Tab PO TID Pramipexole (Pramipexole Dihydrochloride) 0.125 Mg Tab 0.125 Mg PO TID Lasix (Furosemide) 20 Mg Tab 20 Mg PO DAILY Review of Systems Except as stated in HPI: all other systems reviewed are Neg Physical Exam Narrative GENERAL: Well-developed well-nourished, no obvious distress. SKIN: Focused skin assessment warm/dry. Scalp laceration as previously described HEAD: Atraumatic. Normocephalic. EYES: Pupils equal and round. No scleral icterus. No injection or drainage. ENT: No nasal bleeding or discharge. Mucous membranes pink and moist. NECK: Trachea midline. No JVD. CARDIOVASCULAR: Regular rate and rhythm. No murmur appreciated. Normal sinus on the monitor. RESPIRATORY: No accessory muscle use. Clear to auscultation. Breath sounds equal bilaterally. GASTROINTESTINAL: Abdomen soft, non-tender, nondistended. Hepatic and splenic margins not palpable. MUSCULOSKELETAL: No obvious deformities. No clubbing. No cyanosis. No edema. NEUROLOGICAL: Awake and alert. No obvious cranial nerve deficits. Motor grossly within normal limits. Normal speech. PSYCHIATRIC: Appropriate mood and affect; insight and judgment normal. Data Data Last Documented VS Vital Signs Date Time Temp Pulse Resp B/P (MAP) Pulse Ox O2 Delivery O2 Flow Rate FiO2 06/17/17 20:00 06/17/17 19:03 76 18 98 Room Air 06/17/17 16:16 2.00 Orders Orders Electrocardiogram (06/17/17 15:12) B-Type Natriuretic Peptide (06/17/17 15:12) Ckmb (Isoenzyme) Profile (06/17/17 15:12) Complete Blood Count With Diff (06/17/17 15:12) Comprehensive Metabolic Panel (06/17/17 15:12) Magnesium (Mg) (06/17/17 15:12) Prothrombin Time / Inr (Pt) (06/17/17 15:12) Act Partial Throm Time (Ptt) (06/17/17 15:12) Troponin I (06/17/17 15:12) Ecg Monitoring (06/17/17 15:12) Iv Access Insert/Monitor (06/17/17 15:12) Oximetry (06/17/17 15:12) Oxygen Administration (06/17/17 15:12) Sodium Chloride 0.9% Flush (Ns Flush) (06/17/17 15:15) Chest, Single Ap (06/17/17 ) Ct Pulmonary Angiogram (06/17/17 ) Diphenhydramine Inj (Benadryl Inj) (06/17/17 16:45) Methylprednisolone So Succ Inj (Solumedr (06/17/17 16:45) Iohexol 350 Inj (Omnipaque 350 Inj) (06/17/17 18:32) Labs Laboratory Tests Test 06/17/17 15:15 White Blood Count 10.1 TH/MM3 Red Blood Count 5.20 MIL/MM3 Hemoglobin 15.7 GM/DL Hematocrit 47.7 % Mean Corpuscular Volume 91.7 FL Mean Corpuscular Hemoglobin 30.3 PG Mean Corpuscular Hemoglobin Concent 33.0 % Red Cell Distribution Width 13.5 % Platelet Count 206 TH/MM3 Mean Platelet Volume 11.1 FL Neutrophils (%) (Auto) 70.6 % Lymphocytes (%) (Auto) 18.3 % Monocytes (%) (Auto) 8.1 % Eosinophils (%) (Auto) 2.4 % Basophils (%) (Auto) 0.6 % Neutrophils # (Auto) 7.1 TH/MM3 Lymphocytes # (Auto) 1.9 TH/MM3 Monocytes # (Auto) 0.8 TH/MM3 Eosinophils # (Auto) 0.2 TH/MM3 Basophils # (Auto) 0.1 TH/MM3 CBC Comment DIFF FINAL Differential Comment Prothrombin Time 10.5 SEC Prothromb Time International Ratio 1.0 RATIO Activated Partial Thromboplast Time 23.9 SEC Blood Urea Nitrogen 22 MG/DL Creatinine 1.40 MG/DL Random Glucose 96 MG/DL Total Protein 7.5 GM/DL Albumin 3.5 GM/DL Calcium Level 8.7 MG/DL Magnesium Level 2.3 MG/DL Alkaline Phosphatase 139 U/L Aspartate Amino Transf (AST/SGOT) 18 U/L Alanine Aminotransferase (ALT/SGPT) 23 U/L Total Bilirubin 0.5 MG/DL Sodium Level 142 MEQ/L Potassium Level 3.5 MEQ/L Chloride Level 105 MEQ/L Carbon Dioxide Level 29.0 MEQ/L Anion Gap 8 MEQ/L Estimat Glomerular Filtration Rate 36 ML/MIN Total Creatine Kinase 62 U/L Troponin I LESS THAN 0.02 NG/ML B-Type Natriuretic Peptide 286 PG/ML MDM Medical Decision Making Medical Screen Exam Complete: Yes Emergency Medical Condition: Yes Differential Diagnosis Shortness of breath, ACS unlikely, MA likely, pulmonary embolism, Narrative Course Patient roomed in emergency department, after discussion of risks benefits competitions and alternatives of CT pulmonary embolism I conveyed my opinion that the patient needs to have exclusion of PE as cause of her shortness of breath given her history of DVT not being on Coumadin currently, it was noted that her creatinine is elevated to 1.4 she's been variable in the past. She is within criteria for IV contrast CT PE study. She has a listed allergy to iodine solution states she gets a rash. Discussed with Dr. Brennan and recommended premedication she was given Benadryl and Solu-Medrol approximately an hour prior to having her CAT scan. She did well with CAT scan suffered no adverse reaction. Troponin was negative, EKG was reassuring. Patient would like to go home to follow-up with her geological e logger and her neurologist and I think this is appropriate. Discussed needing to discuss the blood pressure and the presyncopal symptoms with geological e logger and needing discussed the visual hallucinations with the neurologist. I believe she stable for discharge with this follow-up plan. CT of the chest was reviewed and shows no evidence pulmonary embolisms, there was a slight granuloma and discussed the need for follow-up CAT scan in 6-12 months as per recommendations from the radiologist. Also discussed a small amount of atelectasis, at this point with a normal white blood cell count she's not exhibited any cough here and do not think that this is pneumonia. Diagnosis Primary Impression: SOB (shortness of breath) Patient Instructions: Dyspnea (DC), Fall Prevention (DC), General Instructions Additional Instructions: Follow up with your geological e logger and your neurologist as scheduled. Disposition: 01 DISCHARGE HOME Condition: Stable Jean Cobos MD Jun 17, 2017 15:42
--- NOTE | 2017-06-17 15:56 | RADRPT ---
EXAM DATE/TIME: 06/17/2017 15:16 [facility] COMPARISON: CHEST SINGLE AP, February 24, 2016, 15:25. INDICATIONS : Shortness of breath. MEDICAL HISTORY : Hypertension. SURGICAL HISTORY : Pacemaker. Breast implants. ENCOUNTER: Initial ACUITY: 1 day PAIN SCORE: 0/10 LOCATION: Bilateral chest FINDINGS: A single view of the chest demonstrates the lungs to be symmetrically aerated without evidence of mas s, infiltrate or effusion. Pacer is evident. The cardiomediastinal contours are unremarkable. The capsular breast implants are noted. Osseous structures are intact. CONCLUSION: No acute disease. García Herrera MD FACR on June 17, 2017 at 15:54 Board Certified Radiologist. This report was verified electronically.
[2017-06-17 16:16] VITALS: BP 142/72; PULSE 69; RESP 18; O2SAT 100
[2017-06-17] MEDS ORDERED: diphenhydrAMINE HCL 50 MG/ML VIAL IV PUSH ONE (16:45)
[2017-06-17] MEDS ORDERED: methylPREDNISolone SOD SUCC 125 MG/2 ML VIAL IV PUSH ONE (16:45)
[2017-06-17 17:34] VITALS: BP 175/93; PULSE 72; RESP 20; O2SAT 100
[2017-06-17] MEDS ORDERED: IOHEXOL 350 MG/ML 10 ML VIAL (for RAD DIAG) IVCONTRAST ONE (18:32)
[2017-06-17 18:45] VITALS: BP 197/88; PULSE 79; RESP 20; O2SAT 100
[2017-06-17 19:03] VITALS: BP 185/93; PULSE 76; RESP 18; O2SAT 98
--- NOTE | 2017-06-17 19:48 | RADRPT ---
EXAM DATE/TIME: 06/17/2017 18:14 [facility] COMPARISON: No previous studies available for comparison. INDICATIONS : Dizziness and labored breathing. Evaluate for pulmonary embolism. IV CONTRAST: 65 cc Omnipaque 350 (iohexol) IV RADIATION DOSE: 13.88 CTDIvol (mGy) MEDICAL HISTORY : Cerebrovascular disease. Cardiovascular disease Hypertension. SURGICAL HISTORY : Pacemaker. ENCOUNTER: Initial ACUITY: 1 day PAIN SCALE: 0/10 LOCATION: chest TECHNIQUE: Volumetric scanning of the chest was performed using a pulmonary embolism protocol MIP images were re constructed. Using automated exposure control and adjustment of the mA and/or kV according to patien t size, radiation dose was kept as low as reasonably achievable to obtain optimal diagnostic quality images. DICOM format image data is available electronically for review and comparison. Follow-up recommendations for detected pulmonary nodules are based at a minimum on nodule size and pa tient risk factors according to Fleischner Society Guidelines. FINDINGS: No pulmonary embolus is seen. There is some mild suspected atelectasis or consolidation at the inferi or lateral left lingula. There is some calcified granuloma in the right upper lobe. There are also several small less than 5 mm nodules seen in the right lung. These are nonspecific. No adenopathy i s seen. No effusion is seen. Bilateral peripherally calcified breast implants are present. CONCLUSION: 1. No pulmonary embolus is seen. 2. Minimal area of atelectasis or consolidation at the left lingula. 3. Calcified granuloma in the right upper lobe. There are also several small noncalcified nodules al l measuring less than 5 mm seen in the right lobe. These are nonspecific. They can be followed with a noncontrast CT examination in 6 to 12 months. Jovany Parra MD on June 17, 2017 at 19:09 Board Certified Radiologist. This report was verified electronically.
--- NOTE | 2017-06-18 15:07 | EKG ---
Date Performed: 06/17/2017 Time Performed: 15:22:06 PTAGE: 82 years EKG: Sinus rhythm POSSIBLE LEFT ATRIAL ENLARGEMENT NONSPECIFIC ST & T-WAVE ABNORMALITY ABNORMAL ECG PREVIOUS TRACING : 02/24/2016 11.40 Since the prior tracing, there is a slight increase in the inferior ST-T wave changes, but essentially no significant serial change. DOCTOR: Sima Capps Interpretating Date/Time 06/18/2017 15:06:26
== END 2017-06-17 20:09 | disposition home or self-care (01) ==
LOC: PHED 14:40
DX: R06.02 Shortness of breath (principal); R44.1 Visual hallucinations; R42 Dizziness and giddiness; Z79.899 Other long term (current) drug therapy
CPT/HCPCS: 71010; 71275; 80053; 82550; 83735; 83880; 84484; 85025; 85610; 85730; 93005; 96374; 96375; 99285; J1200; J2930; Q9967

== ENCOUNTER 2017-10-18 16:07 | Emergency (ER) | payer MEDICARE ==
[~2017-10-18] VITALS: Ht 166.4 cm; Wt 59.1 kg
[~2017-10-18 16:07] MED LIST changes: +ASPI-516 CHEW; -ATEN25TA PO; +METO25TA3 PO; -VITA150T PO
[2017-10-18 16:14] VITALS: BP 154/74; PULSE 83; RESP 16; TEMP 97.3; O2SAT 97
--- NOTE | 2017-10-18 16:38 | PD ---
HPI Chief Complaint: Laceration/Skin Injury Time Seen by Provider: 16:29 Travel History International Travel<30 days: No Contact w/Intl Traveler<30days: No Traveled to known affect area: No History of Present Illness HPI 82-year-old female here with laceration to the right upper extremity. Patient reports that she had a mechanical trip and fall last night her right upper extremity on a nearby table. She did not fall to the ground. No head injury or loss of consciousness. She is not anticoagulated. She came to the emergency department today because she thought she may need stitches. She reports mild pain at the site of the laceration. She has full range of motion normal sensation of the extremity. She denies any other injury or pain. PFSH Past Medical History Hx Anticoagulant Therapy: Yes Arthritis: Yes Atrial Fibrillation: Yes Autoimmune Disease: No Blood Disorders: No Anxiety: No Depression: No Heart Rhythm Problems: Yes Cancer: Yes Cardiovascular Problems: Yes (HX of A Fib, pacemaker) High Cholesterol: Yes Chest Pain: No Congestive Heart Failure: No Cerebrovascular Accident: Yes (CVA 2015) Diabetes: No Diminished Hearing: No Endocrine: No Gastrointestinal Disorders: Yes (REFLUX) GERD: Yes Genitourinary: No Hepatitis: No Hiatal Hernia: No Hypertension: Yes Immune Disorder: No Implanted Vascular Access Dvce: Yes Musculoskeletal: Yes (ARTHRITIS) Neurologic: Yes (PARKINSONS) Parkinson's Disease: Yes Psychiatric: No Reproductive: No Respiratory: Yes Integumentary: No Immunizations Current: Yes Migraines: No Radiation Therapy: Yes Seizures: No Sleep Apnea: No Thyroid Disease: No Ulcer: No Tetanus Vaccination: < 5 Years Influenza Vaccination: Yes ?: Not Menopausal: Yes Past Surgical History Abdominal Surgery: Yes (cholecystectomy) AICD: No Body Medical Devices: BREAST . Cardiac Surgery: Yes (pacemaker ) Cholecystectomy: Yes Eye Surgery: Yes (CATARACT) Genitourinary Surgery: Yes (BLADDER LIFT) Joint Replacement: No Neurologic Surgery: No Pacemaker: Yes Thoracic Surgery: No Tonsillectomy: Yes Other Surgery: Yes (skin cancer removal ) Social History Alcohol Use: Yes (socially ) Tobacco Use: No Substance Use: No Allergies-Medications (Allergen,Severity, Reaction): Coded Allergies: bacitracin (Unverified Allergy, Severe, RASH, 10/18/17) CONFIRM? gramicidin D (Unverified Allergy, Severe, RASH, 10/18/17) CONFIRM? neomycin (Unverified Allergy, Severe, RASH, 10/18/17) CONFIRM? polymyxin B (Unverified Allergy, Severe, RASH, 10/18/17) CONFIRM? povidone-iodine (Unverified Allergy, Severe, RASH, 10/18/17) TOPICAL procaine (Unverified Allergy, Severe, RASH, 10/18/17) CONFIRM? Uncoded Allergies: MYCINS (Allergy, Severe, 02/24/16) TOPICAL ANTIBIOTICS (Allergy, Mild, 05/09/06) Reported Meds & Prescriptions Reported Meds & Active Scripts Active Reported Aspirin 81 Mg Chew 81 Mg CHEW DAILY Metoprolol Tartrate 25 Mg Tab 25 Mg PO DAILY Amantadine (Amantadine HCl) 100 Mg Tab 100 Mg PO TID Multi For Her (Multiple Vitamins W/ Minerals) 1 Tab Tab 1 Tab PO DAILY Lovastatin 20 Mg Tab 20 Mg PO DAILY Carbidopa-Levodopa ER 25-100 Mg Tab 1 Tab PO TID Pramipexole (Pramipexole Dihydrochloride) 0.125 Mg Tab 0.125 Mg PO TID Lasix (Furosemide) 20 Mg Tab 20 Mg PO DAILY Review of Systems Except as stated in HPI: all other systems reviewed are Neg General / Constitutional: No: Fever Eyes: No: Visual changes HENT: No: Headaches Cardiovascular: No: Chest Pain or Discomfort Respiratory: No: Shortness of Breath Gastrointestinal: No: Abdominal Pain Genitourinary: No: Dysuria Physical Exam Narrative GENERAL: Alert well-appearing 82-year-old female. SKIN: 2 skin tears to the right forearm no active bleeding. Wound #1 measures 2.5 cm crescent shaped skin tear. Wound #2 measures 1 cm linear wound with well approximated wound edges. The wounds are superficial. HEAD: Normocephalic. Atraumatic EYES: Pupils equal, round, reactive.. No injection or drainage. NECK: Supple, trachea midline. No cervical midline tenderness. CARDIOVASCULAR: Regular rate and rhythm. No chest wall tenderness. RESPIRATORY: Breath sounds equal bilaterally. No accessory muscle use. GASTROINTESTINAL: Abdomen soft, non-tender, nondistended. MUSCULOSKELETAL: No cyanosis, or edema. Attention to the right upper extremity : See skin noted above. There is no bony tenderness. No deformity. Patient has full range of motion of the shoulder, elbow, wrist. 2+ pulses. Normal sensation brisk cap refill. BACK: Nontender without obvious deformity. No CVA tenderness. Data Data Last Documented VS Vital Signs Date Time Temp Pulse Resp B/P (MAP) Pulse Ox O2 Delivery O2 Flow Rate FiO2 10/18/17 16:14 97.3 83 16 154/74 (100) 97 Orders Orders Ed Discharge Order (10/18/17 16:39) MDM Medical Decision Making Medical Screen Exam Complete: Yes Emergency Medical Condition: Yes Differential Diagnosis Skin tear, laceration, contusion Narrative Course 82-year-old female here for evaluation of 2 lacerations to her right upper extremity caused by a mechanical trip and fall last night. The wounds are superficial in nature with no active bleeding. She denies any other injuries. She is well-appearing. Her physical exam was essentially benign. Her wounds were cleansed nonstick dressings were applied. Wound care discussed with patient. She is to follow-up with her primary doctor for recheck. She verbalizes understanding and agrees to plan Diagnosis Primary Impression: Skin tear of right upper extremity Referrals: Primary Care Physician Additional Instructions: Change the dressings daily. Follow-up with her primary doctor. Disposition: 01 DISCHARGE HOME Condition: Stable ErnestoemilyAnay NEUMANN Oct 18, 2017 16:38
== END 2017-10-18 16:55 | disposition home or self-care (01) ==
LOC: PHEFT 16:07
DX: S41.111A Laceration without foreign body of right upper arm, initial encounter (principal); W01.190A Fall on same level from slipping, tripping and stumbling with subsequent striking against furniture, initial encounter; E78.00 Pure hypercholesterolemia, unspecified; G20 Parkinson's disease; I10 Essential (primary) hypertension; I48.91 Unspecified atrial fibrillation; M19.90 Unspecified osteoarthritis, unspecified site; K21.9 Gastro-esophageal reflux disease without esophagitis; Z86.73 Personal history of transient ischemic attack (TIA), and cerebral infarction without residual deficits
CPT/HCPCS: 99281

== ENCOUNTER 2017-11-20 14:54 | Inpatient (IN) | payer MEDICARE ==
[2017-11-20] VITALS (12 sets, daily range): BP systolic 115–200; BP diastolic 71–122; PULSE 68–138; RESP 14–20; TEMP 96.6–97.5; O2SAT 95–100
[~2017-11-20] VITALS: Ht 162.6 cm; Wt 57.1 kg
[2017-11-20] MEDS ORDERED: DILTIAZEM HCL 25 MG/5 ML VIAL IV PUSH ONE (15:15)
--- NOTE | 2017-11-20 15:18 | PD ---
HPI Chief Complaint: cough weakness Time Seen by Provider: 15:06 Travel History International Travel<30 days: No Contact w/Intl Traveler<30days: No Traveled to known affect area: No History of Present Illness HPI This 82-year-old female says she's been feeling extremely weak. She gets short of breath about 10 steps. She feels clammy at times thinks she's been having fever. She's been having a cough. She has a history of Parkinson's disease for 15 years. Review of chart shows that she has sick sinus syndrome. She has a pacemaker in place. She has had rapid atrial fibrillation in the past. Her most recent EKG in May 2017 showed sinus rhythm. She says she's been short of breath for the past 2 years. She never smoked. She gets short of breath on minimal exertion. She also feels like her muscles are weak. Her legs have been weak. She has been a bit unsteady on her feet. There is been no recent change in her are Parkinson's medications. PFSH Past Medical History Hx Anticoagulant Therapy: Yes Arthritis: Yes Atrial Fibrillation: Yes Autoimmune Disease: No Blood Disorders: No Anxiety: No Depression: No Heart Rhythm Problems: Yes Cancer: Yes Cardiovascular Problems: Yes (HX of A Fib, pacemaker) High Cholesterol: Yes Chest Pain: No Congestive Heart Failure: No Cerebrovascular Accident: Yes (CVA 2015) Diabetes: No Diminished Hearing: No Endocrine: No Gastrointestinal Disorders: Yes (REFLUX) GERD: Yes Genitourinary: No Hepatitis: No Hiatal Hernia: No Hypertension: Yes Immune Disorder: No Implanted Vascular Access Dvce: Yes Musculoskeletal: Yes (ARTHRITIS) Neurologic: Yes (PARKINSONS) Parkinson's Disease: Yes Psychiatric: No Reproductive: No Respiratory: Yes Integumentary: No Immunizations Current: Yes Migraines: No Radiation Therapy: Yes Seizures: No Sleep Apnea: No Thyroid Disease: No Ulcer: No Menopausal: Yes Past Surgical History Abdominal Surgery: Yes (cholecystectomy) AICD: No Body Medical Devices: BREAST . Cardiac Surgery: Yes (pacemaker ) Cholecystectomy: Yes Eye Surgery: Yes (CATARACT) Genitourinary Surgery: Yes (BLADDER LIFT) Joint Replacement: No Neurologic Surgery: No Pacemaker: Yes Thoracic Surgery: No Tonsillectomy: Yes Other Surgery: Yes (skin cancer removal ) Social History Alcohol Use: Yes (socially ) Tobacco Use: No Substance Use: No Allergies-Medications (Allergen,Severity, Reaction): Coded Allergies: bacitracin (Unverified Allergy, Severe, RASH, 11/20/17) CONFIRM? gramicidin D (Unverified Allergy, Severe, RASH, 11/20/17) CONFIRM? neomycin (Unverified Allergy, Severe, RASH, 11/20/17) CONFIRM? polymyxin B (Unverified Allergy, Severe, RASH, 11/20/17) CONFIRM? povidone-iodine (Unverified Allergy, Severe, RASH, 11/20/17) TOPICAL procaine (Unverified Allergy, Severe, RASH, 11/20/17) CONFIRM? Uncoded Allergies: MYCINS (Allergy, Severe, 02/24/16) TOPICAL ANTIBIOTICS (Allergy, Mild, 05/09/06) Reported Meds & Prescriptions Reported Meds & Active Scripts Active Reported Metoprolol Tartrate 25 Mg Tab 25 Mg PO DAILY Amantadine (Amantadine HCl) 100 Mg Tab 100 Mg PO TID Multi For Her (Multiple Vitamins W/ Minerals) 1 Tab Tab 1 Tab PO DAILY Lovastatin 20 Mg Tab 20 Mg PO DAILY Carbidopa-Levodopa ER 25-100 Mg Tab 1 Tab PO TID Pramipexole (Pramipexole Dihydrochloride) 0.125 Mg Tab 0.125 Mg PO TID Lasix (Furosemide) 20 Mg Tab 20 Mg PO DAILY Review of Systems General / Constitutional: Positive: Chills Eyes: No: Diploplia, Blurred Vision HENT: Positive: Lightheadedness, No: Headaches, Vertigo Cardiovascular: Positive: Tachycardia, No: Chest Pain or Discomfort, Palpitations Respiratory: Positive: Cough, Shortness of Breath Gastrointestinal: No: Vomiting, Diarrhea Genitourinary: No: Urgency, Frequency Musculoskeletal: No: Myalgias, Arthralgias Skin: No Rash, No Itching Neurologic: Positive: Weakness, No: Syncope Hematologic/Lymphatic: No: Easy Bruising Physical Exam Narrative GENERAL: Well-developed female SKIN: Focused skin assessment warm/dry. HEAD: Atraumatic. Normocephalic. EYES: Pupils equal and round. No scleral icterus. No injection or drainage. ENT: No nasal bleeding or discharge. Mucous membranes pink and moist. NECK: Trachea midline. No JVD. CARDIOVASCULAR: Rapid irregular rate and rhythm. No murmur appreciated. RESPIRATORY: No accessory muscle use. There are scattered rhonchi and rales. GASTROINTESTINAL: Abdomen soft, non-tender, nondistended. Hepatic and splenic margins not palpable. MUSCULOSKELETAL: No obvious deformities. No clubbing. No cyanosis. No edema. NEUROLOGICAL: Awake and alert. No obvious cranial nerve deficits. Motor grossly within normal limits. Normal speech. PSYCHIATRIC: Appropriate mood and affect; insight and judgment normal. Data Data Last Documented VS Vital Signs Date Time Temp Pulse Resp B/P (MAP) Pulse Ox O2 Delivery O2 Flow Rate FiO2 11/20/17 16:44 88 18 131/71 (91) 100 Room Air 11/20/17 15:00 97.5 Orders Orders Sepsis Workup Initiated (11/20/17 ) Complete Blood Count With Diff (11/20/17 15:08) Comprehensive Metabolic Panel (11/20/17 15:08) Lactic Acid Sepsis Protocol (11/20/17 15:08) Urinalysis - C+S If Indicated (11/20/17 15:08) Influenzae A/B Antigen (11/20/17 15:08) Blood Culture (11/20/17 15:08) Chest, Single Ap (11/20/17 15:08) Blood Glucose (11/20/17 15:08) Ecg Monitoring (11/20/17 15:08) Iv Access Insert/Monitor (11/20/17 15:08) Oximetry (11/20/17 15:08) Oxygen Administration (11/20/17 15:08) B-Type Natriuretic Peptide (11/20/17 15:08) Troponin I (11/20/17 15:08) Vital Signs (Adult) Q15MX4,Q4H (11/20/17 15:08) Fruit Grower / Telemetry REGINO.Q8H (11/20/17 15:08) Cardiac Rhythm REGINO.Q8H (11/20/17 15:08) Notify Dr: Other (11/20/17 15:08) Diltiazem Inj (Cardizem Inj) (11/20/17 15:15) Diltiazem Inj (Cardizem Inj) (11/20/17 15:15) Electrocardiogram (11/20/17 15:18) Sodium Chlorid 0.9% 500 Ml Inj (Ns 500 M (11/20/17 16:45) Magnesium (Mg) (11/20/17 16:13) Urine Culture (11/20/17 16:20) Ceftriaxone Inj (Rocephin Inj) (11/20/17 17:30) Carbidopa-Levodopa 25-100 Mg (Sinemet 25 (11/20/17 17:30) Admit Order (Ed Use Only) (11/20/17 17:50) Labs Laboratory Tests Test 11/20/17 16:13 11/20/17 16:20 White Blood Count 12.1 TH/MM3 Red Blood Count 5.74 MIL/MM3 Hemoglobin 17.3 GM/DL Hematocrit 51.9 % Mean Corpuscular Volume 90.5 FL Mean Corpuscular Hemoglobin 30.1 PG Mean Corpuscular Hemoglobin Concent 33.3 % Red Cell Distribution Width 13.2 % Platelet Count 112 TH/MM3 Mean Platelet Volume 9.6 FL Neutrophils (%) (Auto) 82.3 % Lymphocytes (%) (Auto) 10.5 % Monocytes (%) (Auto) 5.8 % Eosinophils (%) (Auto) 0.2 % Basophils (%) (Auto) 1.2 % Neutrophils # (Auto) 10.0 TH/MM3 Lymphocytes # (Auto) 1.3 TH/MM3 Monocytes # (Auto) 0.7 TH/MM3 Eosinophils # (Auto) 0.0 TH/MM3 Basophils # (Auto) 0.1 TH/MM3 CBC Comment AUTO DIFF Differential Comment AUTO DIFF CONFIRMED Platelet Morphology Comment ENLARGED Blood Urea Nitrogen 21 MG/DL Creatinine 1.10 MG/DL Random Glucose 142 MG/DL Total Protein 7.7 GM/DL Albumin 2.5 GM/DL Calcium Level 9.1 MG/DL Magnesium Level 2.1 MG/DL Alkaline Phosphatase 135 U/L Aspartate Amino Transf (AST/SGOT) 24 U/L Alanine Aminotransferase (ALT/SGPT) 17 U/L Total Bilirubin 0.7 MG/DL Sodium Level 139 MEQ/L Potassium Level 3.5 MEQ/L Chloride Level 107 MEQ/L Carbon Dioxide Level 22.7 MEQ/L Anion Gap 9 MEQ/L Estimat Glomerular Filtration Rate 48 ML/MIN Lactic Acid Level 2.0 mmol/L Troponin I LESS THAN 0.02 NG/ML B-Type Natriuretic Peptide 485 PG/ML Urine Color YELLOW Urine Turbidity CLEAR Urine pH 5.5 Urine Specific [place] 1.015 Urine Protein 30 mg/dL Urine Glucose (UA) NEG mg/dL Urine Ketones NEG mg/dL Urine Occult Blood TRACE Urine Nitrite NEG Urine Bilirubin NEG Urine Leukocyte Esterase SMALL Urine RBC 4-9 /hpf Urine WBC 25-49 /hpf Urine WBC Clumps MANY Urine Squamous Epithelial Cells 0-5 /hpf Urine Bacteria OCC /hpf Urine Mucus FEW /lpf Microscopic Urinalysis Comment CATH-CULTURE IND MDM Medical Decision Making Medical Screen Exam Complete: Yes Emergency Medical Condition: Yes Medical Record Reviewed: Yes Differential Diagnosis Differential includes rapid atrial fibrillation, CHF, pneumonia, influenza Narrative Course Monitor shows atrial fibrillation at a rate varying between 125 and 150. Most recent EKG on our files shows a sinus rhythm though she has had atrial fibrillation in the past. Ac Myers MD Nov 20, 2017 15:17
--- NOTE | 2017-11-20 15:47 | RADRPT ---
EXAM DATE/TIME: 11/20/2017 15:21 [facility] COMPARISON: CHEST SINGLE AP, June 17, 2017, 15:16. INDICATIONS : Shortness of breath. MEDICAL HISTORY : None. SURGICAL HISTORY : Pacemaker. ENCOUNTER: Initial ACUITY: 1 day PAIN SCORE: 0/10 LOCATION: Bilateral chest FINDINGS: A single view of the chest demonstrates the lungs to be symmetrically aerated without evidence of mas s, infiltrate or effusion. The cardiomediastinal contours are unremarkable. Osseous structures are intact. The left subclavian AV sequential transvenous pacer remains in place. There are calcified federica ateral breast implants. CONCLUSION: No acute disease. Sriram Mora MD on November 20, 2017 at 15:44 Board Certified Radiologist. This report was verified electronically.
[2017-11-20] MEDS: DILTIAZEM INJ 125 MG in SODIUM CHLORIDE 0.9% INJ 100 ML IV PRN ×2 (16:17→16:21)
--- NOTE | 2017-11-20 16:23 | PD ---
Physical Exam Narrative Received sign out from previous provider to follow up labs and admit patient. 82yo F with PMH of parkinson's disease, sick sinus syndrome with pace maker here with c/o worsening exertional sob for the last feel days. Pt also with worsening generalized weakness for the last few days. Pt was initially afib in the 120s-140s so she was given 20mg IV cardizem by previous team. CXR negative. 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 Labs reviewed, mild leukocytosis at 12.1. H/H elevated at 17.3/51.9, may be dehydration. Mild thrombocytopenia which is new at 112,000. BUN/creatinine 21/1.10 consistent with dehydration. Lactic acid normal at 2.0. BNP 485. Troponin negative. Pt given NS 500cc IVF. UA showed WBC 25-49, pt given ceftriaxone. Pt's heart rate has been in the 80s-90s so cardizem drip has not been started. Discussed with Dr. Bender who said hepas now admits for her. Discussed with Dr. Benton and accepted to her service. Data Data Last Documented VS Vital Signs Date Time Temp Pulse Resp B/P (MAP) Pulse Ox O2 Delivery O2 Flow Rate FiO2 11/20/17 16:44 88 18 131/71 (91) 100 Room Air 11/20/17 15:00 97.5 Orders Orders Sepsis Workup Initiated (11/20/17 ) Complete Blood Count With Diff (11/20/17 15:08) Comprehensive Metabolic Panel (11/20/17 15:08) Lactic Acid Sepsis Protocol (11/20/17 15:08) Urinalysis - C+S If Indicated (11/20/17 15:08) Influenzae A/B Antigen (11/20/17 15:08) Blood Culture (11/20/17 15:08) Chest, Single Ap (11/20/17 15:08) Blood Glucose (11/20/17 15:08) Ecg Monitoring (11/20/17 15:08) Iv Access Insert/Monitor (11/20/17 15:08) Oximetry (11/20/17 15:08) Oxygen Administration (11/20/17 15:08) B-Type Natriuretic Peptide (11/20/17 15:08) Troponin I (11/20/17 15:08) Vital Signs (Adult) Q15MX4,Q4H (11/20/17 15:08) Sheet Metal Layout Worker / Telemetry REGINO.Q8H (11/20/17 15:08) Cardiac Rhythm REGINO.Q8H (11/20/17 15:08) Notify Dr: Other (11/20/17 15:08) Diltiazem Inj (Cardizem Inj) (11/20/17 15:15) Diltiazem Inj (Cardizem Inj) (11/20/17 15:15) Electrocardiogram (11/20/17 15:18) Sodium Chlorid 0.9% 500 Ml Inj (Ns 500 M (11/20/17 16:45) Magnesium (Mg) (11/20/17 16:13) Urine Culture (11/20/17 16:20) Ceftriaxone Inj (Rocephin Inj) (11/20/17 17:30) Carbidopa-Levodopa 25-100 Mg (Sinemet 25 (11/20/17 17:30) Admit Order (Ed Use Only) (11/20/17 17:50) Labs Laboratory Tests Test 11/20/17 16:13 11/20/17 16:20 White Blood Count 12.1 TH/MM3 Red Blood Count 5.74 MIL/MM3 Hemoglobin 17.3 GM/DL Hematocrit 51.9 % Mean Corpuscular Volume 90.5 FL Mean Corpuscular Hemoglobin 30.1 PG Mean Corpuscular Hemoglobin Concent 33.3 % Red Cell Distribution Width 13.2 % Platelet Count 112 TH/MM3 Mean Platelet Volume 9.6 FL Neutrophils (%) (Auto) 82.3 % Lymphocytes (%) (Auto) 10.5 % Monocytes (%) (Auto) 5.8 % Eosinophils (%) (Auto) 0.2 % Basophils (%) (Auto) 1.2 % Neutrophils # (Auto) 10.0 TH/MM3 Lymphocytes # (Auto) 1.3 TH/MM3 Monocytes # (Auto) 0.7 TH/MM3 Eosinophils # (Auto) 0.0 TH/MM3 Basophils # (Auto) 0.1 TH/MM3 CBC Comment AUTO DIFF Differential Comment AUTO DIFF CONFIRMED Platelet Morphology Comment ENLARGED Blood Urea Nitrogen 21 MG/DL Creatinine 1.10 MG/DL Random Glucose 142 MG/DL Total Protein 7.7 GM/DL Albumin 2.5 GM/DL Calcium Level 9.1 MG/DL Magnesium Level 2.1 MG/DL Alkaline Phosphatase 135 U/L Aspartate Amino Transf (AST/SGOT) 24 U/L Alanine Aminotransferase (ALT/SGPT) 17 U/L Total Bilirubin 0.7 MG/DL Sodium Level 139 MEQ/L Potassium Level 3.5 MEQ/L Chloride Level 107 MEQ/L Carbon Dioxide Level 22.7 MEQ/L Anion Gap 9 MEQ/L Estimat Glomerular Filtration Rate 48 ML/MIN Lactic Acid Level 2.0 mmol/L Troponin I LESS THAN 0.02 NG/ML B-Type Natriuretic Peptide 485 PG/ML Urine Color YELLOW Urine Turbidity CLEAR Urine pH 5.5 Urine Specific [place] 1.015 Urine Protein 30 mg/dL Urine Glucose (UA) NEG mg/dL Urine Ketones NEG mg/dL Urine Occult Blood TRACE Urine Nitrite NEG Urine Bilirubin NEG Urine Leukocyte Esterase SMALL Urine RBC 4-9 /hpf Urine WBC 25-49 /hpf Urine WBC Clumps MANY Urine Squamous Epithelial Cells 0-5 /hpf Urine Bacteria OCC /hpf Urine Mucus FEW /lpf Microscopic Urinalysis Comment CATH-CULTURE IND MDM Supervised Visit with TAYLOR: No Interpretation(s) EKG: Afib at 118bpm. PVC. Sepsis Criteria SIRS Criteria (2 or more): Heart rate over 90, WBC > 01469, < 4000 or > 10% bands Sepsis Criteria (SIRS+source): Infect source susp/known Diagnosis Primary Impression: Sepsis secondary to UTI Additional Impression: Atrial fibrillation with rapid ventricular response Admitting Information Admitting Physician Requests: Admit Elisha Quispe DO Nov 20, 2017 16:23
[2017-11-20 16:28] LABS: BASOPHIL # 0.1 TH/MM3 (0-0.2); BASOPHIL % 1.2 % (0.0-2.0); CHLORIDE 107 MEQ/L (98-107); EOSINOPHIL % 0.2 % (0.0-4.0); HEMATOCRIT 51.9 % (35.0-46.0); HEMOGLOBIN 17.3 GM/DL (11.6-15.3); LYMPH % 10.5 % (9.0-44.0); LYMPHOCYTE # 1.3 TH/MM3 (1.0-4.8); MEAN CELL VOLUME 90.5 FL (80.0-100.0); MEAN CORPUSCULAR HEMOGLOBIN 30.1 PG (27.0-34.0); MEAN CORPUSCULAR HGB CONC 33.3 % (32.0-36.0); MEAN PLATELET VOLUME 9.6 FL (7.0-11.0); MONO % 5.8 % (0.0-8.0); MONOCYTE # 0.7 TH/MM3 (0-0.9); NEUT % 82.3 % (16.0-70.0); PLATELET COUNT 112 TH/MM3 (150-450); RED BLOOD COUNT 5.74 MIL/MM3 (4.00-5.30); RED CELL DISTRIBUTION WIDTH 13.2 % (11.6-17.2); SODIUM (NA) 139 MEQ/L (136-145); WHITE BLOOD COUNT 12.1 TH/MM3 (4.0-11.0)
[2017-11-20 16:31] LABS: CALCIUM 9.1 MG/DL (8.5-10.1)
[2017-11-20 16:32] LABS: BICARBONATE 22.7 MEQ/L (21.0-32.0); BLOOD UREA NITROGEN 21 MG/DL (7-18); GLUCOSE,RANDOM 142 MG/DL (74-106)
[2017-11-20 16:35] LABS: ALT (GPT) 17 U/L (10-53); AST (GOT) 24 U/L (15-37); GLOMERULAR FILTRATION RATE 48 ML/MIN (>89)
[2017-11-20 16:36] LABS: TOTAL BILIRUBIN ADULT 0.7 MG/DL (0.2-1.0); TOTAL PROTEIN 7.7 GM/DL (6.4-8.2)
[2017-11-20 16:38] LABS: ALKALINE PHOSPHATASE 135 U/L (45-117)
[2017-11-20 16:40] LABS: TROPONIN I LESS THAN 0.02 NG/ML (0.02-0.05)
[2017-11-20] MEDS ORDERED: SODIUM CHLORID 0.9% 500 ML INJ 500 ML IV ONE (16:45)
[2017-11-20 16:47] LABS: BILIRUBIN, URINE NEG (NEG); GLUCOSE,URINE NEG (NEG); KETONE, URINE NEG (NEG); NITRITE,URINE NEG (NEG); PH, URINE 5.5 (5.0-8.5); URINE LEUKOCYTE ESTERASE SMALL (NEG)
[2017-11-20 16:48] LABS: MAGNESIUM 2.1 MG/DL (1.5-2.5)
[2017-11-20 16:58] LABS: BLOOD, URINE TRACE (NEG); URINE COLOR YELLOW (YELLW/STRAW)
[2017-11-20 16:59] LABS: MUCUS URINE FEW /lpf (OCC); WHITE BLOOD CELL CLUMPS MANY
[2017-11-20 17:00] LABS: BACTERIA, URINE OCC /hpf; SQUAMOUS EPITHELIAL CELL URINE 0-5 /hpf (0-5)
[2017-11-20 17:03] LABS: ALBUMIN 2.5 GM/DL (3.4-5.0)
[2017-11-20] MEDS ORDERED: cefTRIAXone INJ 1,000 MG in SODIUM CHLORIDE 0.9% INJ 100 ML IV ONE (17:30)
[2017-11-20] MEDS ORDERED: CARBIDOPA/LEVODOPA 25 MG/100 MG TAB PO SCH (17:30)
[2017-11-20] MEDS ORDERED: SODIUM CHLORIDE 0.9% FLUSH 10 ML FLUSH IV FLUSH PRN (18:00)
[2017-11-20] MEDS ORDERED: NALOXONE HCL 0.4 MG/ML AMP IV PUSH PRN (18:00)
[2017-11-20] MEDS ORDERED: MAGNESIUM HYDROXIDE SUSP 30 ML CUP PO PRN (18:00)
[2017-11-20] MEDS: ENOXAPARIN SODIUM 40 MG/0.4 ML SYRINGE SQ SCH (18:36)
[2017-11-20] MEDS: PRAMIPEXOLE DIHYDROCHLORIDE 0.25 MG TAB PO SCH (18:36)
[2017-11-20] MEDS: AMANTADINE HCL 100 MG CAP PO SCH (18:55)
[2017-11-20] MEDS ORDERED: PILL SPLITTER OTHER PRN (19:00)
[2017-11-20] MEDS: LEVODOPA/CARBIDOPA 1 TAB TABCR PO SCH (20:25)
[2017-11-20] MEDS ORDERED: METOPROLOL TARTRATE 5 MG/5 ML VIAL IV PUSH ONE (21:00)
[2017-11-20] MEDS: SODIUM CHLORIDE 0.9% FLUSH 10 ML FLUSH IV FLUSH SCH (22:04)
[2017-11-21] VITALS (24 sets, daily range): BP systolic 101–174; BP diastolic 63–115; PULSE 68–155; RESP 12–27; TEMP 96.4–98; O2SAT 93–99
[2017-11-21] MEDS ORDERED: METOPROLOL TARTRATE 5 MG/5 ML VIAL IV PUSH SCH (01:45)
--- NOTE | 2017-11-21 05:24 | EKG ---
Date Performed: 11/20/2017 Time Performed: 15:28:40 PTAGE: 82 years EKG: PROBABLE atrial fibrillation ELECTRONIC VENTRICULAR PACEMAKER ABNORMAL RHYTHM ECG Compared to prior electrocardiogram, Probable atrial fibrillation and ventricular pacemaker are present. PREVIOUS TRACING : 06/17/2017 15.22 DOCTOR: Kaovn Bo Interpretating Date/Time 11/22/2017 06:50:22
[2017-11-21 06:28] LABS: AUTOMATED NEUTROPHIL # 8.3 TH/MM3 (1.8-7.7); BASOPHIL % 0.3 % (0.0-2.0); EOSINOPHIL # 0.1 TH/MM3 (0-0.4); EOSINOPHIL % 0.9 % (0.0-4.0); HEMATOCRIT 47.2 % (35.0-46.0); HEMOGLOBIN 15.6 GM/DL (11.6-15.3); LYMPHOCYTE # 1.4 TH/MM3 (1.0-4.8); MEAN CORPUSCULAR HEMOGLOBIN 30.2 PG (27.0-34.0); MEAN CORPUSCULAR HGB CONC 33.2 % (32.0-36.0); MEAN PLATELET VOLUME 11.5 FL (7.0-11.0); MONO % 8.5 % (0.0-8.0); MONOCYTE # 0.9 TH/MM3 (0-0.9); NEUT % 77.3 % (16.0-70.0); PLATELET COUNT 202 TH/MM3 (150-450); RED BLOOD COUNT 5.18 MIL/MM3 (4.00-5.30); WHITE BLOOD COUNT 10.7 TH/MM3 (4.0-11.0)
[2017-11-21 06:51] LABS: BICARBONATE 27.1 MEQ/L (21.0-32.0); CALCIUM 8.8 MG/DL (8.5-10.1)
[2017-11-21 06:55] LABS: CREATININE 0.92 MG/DL (0.50-1.00)
[2017-11-21 06:56] LABS: BANDS 4 % (0-6); LYMPHOCYTES 18 % (9-44); MONOCYTES 9 % (0-8); NEUTROPHIL # MANUAL DIFF 7.8 TH/MM3 (1.8-7.7); POLYS (SEG NEUTROPHILS) 69 % (16-70)
[2017-11-21] MEDS ORDERED: DILTIAZEM HCL 25 MG/5 ML VIAL IV ONE ×2 (08:15→12:45)
[2017-11-21] MEDS: PRAMIPEXOLE DIHYDROCHLORIDE 0.25 MG TAB PO SCH ×3 (08:55→17:43)
[2017-11-21] MEDS: PRAVASTATIN SOD 20 MG TAB PO SCH (09:04)
[2017-11-21] MEDS: LEVODOPA/CARBIDOPA 1 TAB TABCR PO SCH ×3 (09:05→17:43)
[2017-11-21] MEDS: SODIUM CHLORIDE 0.9% FLUSH 10 ML FLUSH IV FLUSH SCH ×2 (09:05→21:20)
[2017-11-21] MEDS: FUROSEMIDE 20 MG TAB PO SCH (09:05)
[2017-11-21] MEDS: METOPROLOL TARTRATE 25 MG TAB PO SCH (09:05)
[2017-11-21] MEDS: AMANTADINE HCL 100 MG CAP PO SCH ×3 (09:07→17:00)
--- NOTE | 2017-11-21 10:52 | ECHRPT ---
Indication: ATRIAL FIB/FLUTTER CONCLUSIONS Normal left ventricular size. Wall thickness is normal. The left ventricular systolic function is normal with an estimated ejection fraction in the range of 55-60%. The left atrial size is moderately dilated. The right atrial size is moderately dilated. [id number] mitral valve regurgitation. Mitral annular calcification is present. Aortic valve sclerosis is present. Mild aortic valve regurgitation. There is trace tricuspid valve regurgitation. BP: 142 / 86 HR: Rhythm: Atrial fibrillation, Atrial flut ter MEASUREMENTS (Male / Female) Normal Values Technical Quality:Technically difficult study 2D ECHO LV Diastolic Diameter PLAX 3.0 cm 4.2 - 5.9 / 3.9 - 5.3 cm LV Systolic Diameter PLAX 2.2 cm IVS Diastolic Thickness 0.9 cm 0.6 - 1.0 / 0.6 - 0.9 cm LVPW Diastolic Thickness 0.9 cm 0.6 - 1.0 / 0.6 - 0.9 cm LV Relative Wall Thickness 0.6 RV Internal Dim ED PLAX 2.5 cm LVOT Diameter 1.8 cm Aortic Root Diameter 2.7 cm LA Systolic Diameter LX 2.7 cm 3.0 - 4.0 / 2.7 - 3.8 cm M-MODE AV Cusp Separation MM 1.6 cm DOPPLER AV Peak Velocity 149.0 cm/s AV Peak Gradient 8.9 mmHg AV Mean Gradient 4.5 mmHg AV Velocity Time Integral 17.3 cm LVOT Peak Velocity 69.2 cm/s LVOT Peak Gradient 1.9 mmHg LVOT Velocity Time Integral 9.9 cm AV Area Cont Eq vti 1.5 cm AV Area Cont Eq pk 1.2 cm Mitral E Point Velocity 86.6 cm/s LV E' Lateral Velocity 11.6 cm/s Mitral E to LV E' Lateral Ratio 7.5 LV E' Septal Velocity 8.8 cm/s Mitral E to LV E' Septal Ratio 9.8 TR Peak Velocity 251.0 cm/s TR Peak Gradient 25.2 mmHg Right Atrial Pressure 10.0 mmHg Pulmonary Artery Systolic Pressu 35.2 mmHg Right Ventricular Systolic Press 35.2 mmHg PV Peak Velocity 69.2 cm/s PV Peak Gradient 1.9 mmHg FINDINGS LEFT VENTRICLE Normal left ventricular size. Wall thickness is normal. The left ventricular systolic function is normal with an estimated ejection fraction in the range of 55-60%. RIGHT VENTRICLE Normal right ventricular size and systolic function. LEFT ATRIUM The left atrial size is moderately dilated. RIGHT ATRIUM The right atrial size is moderately dilated. ATRIAL SEPTUM The interatrial septum not well visualized. AORTA The aortic root and proximal ascending aorta are normal in size on limited imaging. MITRAL VALVE [id number] mitral valve regurgitation. Mitral annular calcification is present. AORTIC VALVE Aortic valve sclerosis is present. Mild aortic valve regurgitation. TRICUSPID VALVE There is trace tricuspid valve regurgitation. PULMONARY VALVE No pulmonary valve regurgitation or stenosis. VESSELS The inferior vena cava was not well visualized. PERICARDIUM No pericardial effusion. Jama Sosa MD, FACC (Electronically Signed) Final Date:21 November 2017 10:51
--- NOTE | 2017-11-21 13:37 | HHI.HP ---
HPI Service [facility] Primary Care Physician Paola Bender MD Admission Diagnosis Afib RVR, sepsis secondaryt to UTI Diagnoses: Chief Complaint: Weakness and shortness of breath Travel History International Travel<30 Days: No Contact w/Intl Traveler <30 Da: No Traveled to Known Affected Are: No History of Present Illness This patient is an 82-year-old female with a known history of fibrillation. Apparently she had come increasingly short of breath over the last 48 hours. She thought she had a fever but did not have any objective findings of a fever on her thermometer. She has a history of Parkinson's disease and has been taking her medications without difficulty. She came to the emergency room because she was unsteady and she was having palpitations. In the emergency room she was found to have quite a bit of tachycardia. In fact heart rate was in the 140s and it was atrial fibrillation with a rapid ventricular response on our registered nurse cardiac telemetry. She has a known history of atrial fibrillation and has been taking metoprolol. Here she was given IV Cardizem with some improvement. She is admitted to the hospital for further evaluation of her uncontrolled atrial fibrillation. Review of Systems Constitutional: COMPLAINS OF: Dizziness, DENIES: Diaphoretic episodes, Fatigue , Fever, Weight gain, Weight loss, Chills, Change in appetite, Night Sweats Endocrine: DENIES: Abnorml menstrual pattern, Heat/cold intolerance, Polydipsia , Polyuria, Polyphagia Eyes: DENIES: Blurred vision, Diplopia, Eye inflammation, Eye pain, Vision loss , Photosensitivity, Double Vision Ears, nose, mouth, throat: DENIES: Tinnitus, Hearing loss, Vertigo, Nasal discharge, Oral lesions, Throat pain, Hoarseness, Ear Pain, Running Nose, Epistaxis, Sinus Pain, Toothache, Odynophagia Respiratory: DENIES: Apneas, Cough, Snoring, Wheezing, Hemoptysis, Sputum production, Shortness of breath Cardiovascular: COMPLAINS OF: Palpitations, Dyspnea on Exertion, DENIES: Chest pain, Syncope, PND, Lower Extremity Edema, Orthopnea, Claudication Genitourinary: DENIES: Abnormal vaginal bleeding, Dysmenorrhea, Dyspareunia, Sexual dysfunction, Urinary frequency, Urinary incontinence, Urgency, Hematuria , Dysuria, Nocturia, Vaginal discharge Musculoskeletal: DENIES: Joint pain, Muscle aches, Stiffness, Joint Swelling, Back pain, Neck pain Integumentary: DENIES: Abnormal pigmentation, Pruritus, Rash, Nail changes, Breast masses, Breast skin changes, Nipple discharge Hematologic/lymphatic: DENIES: Bruising, Lymphadenopathy Immunologic/allergic: DENIES: Eczema, Urticaria Neurologic: DENIES: Abnormal gait, Headache, Localized weakness, Paresthesias, Seizures, Speech Problems, Tremor, Poor Balance Psychiatric: DENIES: Anxiety, Confusion, Mood changes, Depression, Hallucinations, Agitation, Suicidal Ideation, Homicidal Ideation, Delusions Except as stated in HPI: all other systems reviewed are Neg Past Family Social History Past Medical History Parkinson's, age of fibrillation Sick sinus syndrome Past Surgical History Breast augmentation, pacemaker Bladder left Cataract surgery Skin cancer surgery Cholecystectomy Reported Medications Reviewed in the EMR Allergies: Coded Allergies: bacitracin (Unverified Allergy, Severe, RASH, 11/20/17) CONFIRM? gramicidin D (Unverified Allergy, Severe, RASH, 11/20/17) CONFIRM? neomycin (Unverified Allergy, Severe, RASH, 11/20/17) CONFIRM? polymyxin B (Unverified Allergy, Severe, RASH, 11/20/17) CONFIRM? povidone-iodine (Unverified Allergy, Severe, RASH, 11/20/17) TOPICAL procaine (Unverified Allergy, Severe, RASH, 11/20/17) CONFIRM? Uncoded Allergies: MYCINS (Allergy, Severe, 02/24/16) TOPICAL ANTIBIOTICS (Allergy, Mild, 05/09/06) Active Ordered Medications Reviewed in the EMR Family History Mother had heart problems unspecified, father young, sister committed suicide and another sister is alive and well, brother has prostate cancer Social History , lives with her , no tobacco or alcohol dependency issues Physical Exam Vital Signs Vital Signs Date Time Temp Pulse Resp B/P (MAP) Pulse Ox O2 Delivery O2 Flow Rate FiO2 11/21/17 11:45 124 26 125/82 (96) 95 11/21/17 11:00 110 20 96 11/21/17 10:00 104 23 98 11/21/17 09:00 98 18 120/70 (87) 11/21/17 08:00 96.4 145 20 150/85 (106) 96 11/21/17 08:00 155 11/21/17 04:00 97.1 110 20 142/86 (104) 97 11/21/17 03:38 92 18 148/94 (112) 98 11/21/17 03:00 18 132/102 (112) 11/21/17 02:33 102 11/21/17 02:20 123 20 174/97 (122) 94 11/21/17 00:01 98.0 110 18 170/115 (133) 97 160/92 (114) 11/20/17 22:05 113 20 135/80 (98) 98 11/20/17 21:33 168/100 (122) 11/20/17 21:26 115 20 200/122 (148) 96 11/20/17 21:23 68 11/20/17 20:17 96.6 129 20 160/88 (112) 96 11/20/17 20:10 126 11/20/17 18:55 97.4 120 14 146/84 (104) 97 11/20/17 18:18 11/20/17 18:15 100 18 126/72 (90) 96 Room Air 11/20/17 16:44 88 18 131/71 (91) 100 Room Air 11/20/17 16:24 78 18 131/75 (93) 95 Room Air 11/20/17 16:17 110 115/72 11/20/17 15:27 96 Room Air 11/20/17 15:26 96 Room Air 11/20/17 15:26 Room Air 11/20/17 15:00 97.5 138 18 115/72 (86) 98 Physical Exam GENERAL: This is a well-nourished, well-developed patient, in no apparent distress. SKIN: No rashes, ecchymoses or lesions. Cool and dry. HEAD: Atraumatic. Normocephalic. No temporal or scalp tenderness. EYES: Pupils equal round and reactive. Extraocular motions intact. No scleral icterus. No injection or drainage. ENT: Nose without bleeding, purulent drainage or septal hematoma. Throat without erythema, tonsillar hypertrophy or exudate. Uvula midline. Airway patent. NECK: Trachea midline. No JVD or lymphadenopathy. Supple, nontender, no meningeal signs. CARDIOVASCULAR: Atrial fibrillation with rapid ventricular response without murmurs, gallops, or rubs. RESPIRATORY: Clear to auscultation. Breath sounds equal bilaterally. No wheezes , rales, or rhonchi. GASTROINTESTINAL: Abdomen soft, non-tender, nondistended. No hepato-splenomegaly , or palpable masses. No guarding. MUSCULOSKELETAL: Extremities without clubbing, cyanosis, or edema. No joint tenderness, effusion, or edema noted. No calf tenderness. Negative Homans sign bilaterally. NEUROLOGICAL: Awake and alert. Cranial nerves II through XII intact. Motor and sensory grossly within normal limits. Five out of 5 muscle strength in all muscle groups. Normal speech. Laboratory Laboratory Tests Test 11/20/17 16:13 11/20/17 16:20 11/21/17 05:15 White Blood Count 12.1 10.7 Red Blood Count 5.74 5.18 Hemoglobin 17.3 15.6 Hematocrit 51.9 47.2 Mean Corpuscular Volume 90.5 91.0 Mean Corpuscular Hemoglobin 30.1 30.2 Mean Corpuscular Hemoglobin Concent 33.3 33.2 Red Cell Distribution Width 13.2 13.0 Platelet Count 112 202 Mean Platelet Volume 9.6 11.5 Neutrophils (%) (Auto) 82.3 77.3 Lymphocytes (%) (Auto) 10.5 13.0 Monocytes (%) (Auto) 5.8 8.5 Eosinophils (%) (Auto) 0.2 0.9 Basophils (%) (Auto) 1.2 0.3 Neutrophils # (Auto) 10.0 8.3 Lymphocytes # (Auto) 1.3 1.4 Monocytes # (Auto) 0.7 0.9 Eosinophils # (Auto) 0.0 0.1 Basophils # (Auto) 0.1 0.0 CBC Comment AUTO DIFF AUTO DIFF Differential Comment AUTO DIFF CONFIRMED FINAL DIFF MANUAL Platelet Morphology Comment ENLARGED Blood Urea Nitrogen 21 18 Creatinine 1.10 0.92 Random Glucose 142 106 Total Protein 7.7 Albumin 2.5 Calcium Level 9.1 8.8 Magnesium Level 2.1 Alkaline Phosphatase 135 Aspartate Amino Transf (AST/SGOT) 24 Alanine Aminotransferase (ALT/SGPT) 17 Total Bilirubin 0.7 Sodium Level 139 143 Potassium Level 3.5 3.0 Chloride Level 107 107 Carbon Dioxide Level 22.7 27.1 Anion Gap 9 9 Estimat Glomerular Filtration Rate 48 59 Lactic Acid Level 2.0 Troponin I LESS THAN 0.02 B-Type Natriuretic Peptide 485 Urine Color YELLOW Urine Turbidity CLEAR Urine pH 5.5 Urine Specific Nichols 1.015 Urine Protein 30 Urine Glucose (UA) NEG Urine Ketones NEG Urine Occult Blood TRACE Urine Nitrite NEG Urine Bilirubin NEG Urine Leukocyte Esterase SMALL Urine RBC 4-9 Urine WBC 25-49 Urine WBC Clumps MANY Urine Squamous Epithelial Cells 0-5 Urine Bacteria OCC Urine Mucus FEW Microscopic Urinalysis Comment CATH-CULTURE IND Differential Total Cells Counted 100 Neutrophils % (Manual) 69 Band Neutrophils % 4 Lymphocytes % 18 Monocytes % 9 Neutrophils # (Manual) 7.8 Date/Time Source Procedure Growth Status 11/20/17 16:13 Blood Peripheral Aerobic Blood Culture - Preliminary NO GROWTH IN 1 DAY Resulted 11/20/17 16:13 Blood Peripheral Anaerobic Blood Culture - Preliminary NO GROWTH IN 1 DAY Resulted 11/20/17 15:26 Nasal Aspirate Influenza Types A,B Antigen (BINDU) - Final NEGATIVE FOR FLU A AND B ANTIGEN.... Complete 11/20/17 16:20 Urine Catheterized Urine Urine Culture Pending Received Result Diagram: 11/21/17 0515 11/21/17 0515 Imaging Last Impressions Chest X-Ray 11/20/17 1508 Signed Impressions: Service Date/Time: Monday, November 20, 2017 15:21 - CONCLUSION: No acute disease. MD Graciela Mullen VTE Risk Assessment Graciela VTE Risk Assessment: Mod/High Risk (score >= 2) Caprini Risk Assessment Model Point Value = 1 Point Value = 2 Point Value = 3 Point Value = 5 Age 41-60 Minor surgery BMI > 25 kg/m2 Swollen legs Varicose veins or History of unexplained or recurrent spontaneous Oral contraceptives or hormone replacement Sepsis (< 1 month) Serious lung disease, including pneumonia (< 1 month) Abnormal pulmonary function Acute myocardial infarction Congestive heart failure (< 1 month) History of inflammatory bowel disease Medical patient at bed rest Age 61-74 Arthroscopic surgery Major open surgery (> 45 min) Laparoscopic surgery (> 45 min) Malignancy Confined to bed (> 72 hours) Immobilizing plaster cast Central venous access Age >= 75 History of VTE Family history of VTE Factor V Leiden Prothrombin [id number] Lupus anticoagulant Anticardiolipin antibodies Elevated serum homocysteine Heparin-induced thrombocytopenia Other congenital or acquired thrombophilia Stroke (< 1 month) Elective arthroplasty Hip, pelvis, or leg fracture Acute spinal cord injury (< 1 month) Prophylaxis Regimen Total Risk Factor Score Risk Level Prophylaxis Regimen 0-1 Low Early ambulation 2 Moderate Order ONE of the following: *Sequential Compression Device (SCD) *Heparin 5000 units SQ BID 3-4 Higher Order ONE of the following medications: *Heparin 5000 units SQ TID *Enoxaparin/Lovenox 40 mg SQ daily (WT < 150 kg, CrCl > 30 mL/min) *Enoxaparin/Lovenox 30 mg SQ daily (WT < 150 kg, CrCl > 10-29 mL/min) *Enoxaparin/Lovenox 30 mg SQ BID (WT < 150 kg, CrCl > 30 mL/min) AND/OR *Sequential Compression Device (SCD) 5 or more Highest Order ONE of the following medications: *Heparin 5000 units SQ TID (Preferred with Epidurals) *Enoxaparin/Lovenox 40 mg SQ daily (WT < 150 kg, CrCl > 30 mL/min) *Enoxaparin/Lovenox 30 mg SQ daily (WT < 150 kg, CrCl > 10-29 mL/min) *Enoxaparin/Lovenox 30 mg SQ BID (WT < 150 kg, CrCl > 30 mL/min) AND *Sequential Compression Device (SCD) Assessment and Plan Problem List: (1) Atrial fibrillation with rapid ventricular response ICD Code: I48.91 - Atrial fibrillation with rapid ventricular response Status: Acute Plan: Patient still requiring IV Cardizem, she has been transferred to the ICU so that this can be administered. We will replace her potassium and follow up with her firearms instructor Discussed with patient and family Echocardiogram reviewed patient is not on a chronic anticoagulation regimen due to frequent falls from her Parkinson's (2) Parkinson disease ICD Code: G20 - Parkinson disease Status: Chronic Plan: Resume home medications Physician Certification 2 Midnight Certification Type: Admission for Inpatient Services Order for Inpatient Services The services are ordered in accordance with Medicare regulations or non- Medicare payer requirements, as applicable. In the case of services not specified as inpatient-only, they are appropriately provided as inpatient services in accordance with the 2-midnight benchmark. Estimated LOS (days): 3 3 days is the estimated time the patient will need to remain in the hospital, assuming treatment plan goals are met and no additional complications. Post-Hospital Plan: Andreea Jean-Baptiste MD Nov 21, 2017 13:37
[2017-11-21] MEDS: POTASSIUM CHLORIDE 20 MEQ CONTROLLED RELEASE TAB PO SCH ×2 (14:08→21:20)
[2017-11-21] MEDS: ENOXAPARIN SODIUM 40 MG/0.4 ML SYRINGE SQ SCH (17:44)
[2017-11-21] MEDS ORDERED: cefTRIAXone INJ 1,000 MG in SODIUM CHLORIDE 0.9% INJ 100 ML IV SCH (18:00)
[2017-11-22] VITALS (10 sets, daily range): BP systolic 148–182; BP diastolic 54–120; PULSE 72–89; RESP 13–26; TEMP 97.4–98; O2SAT 81–98
[2017-11-22] MEDS ORDERED: cloNIDine HCL 0.1 MG TAB PO ONE (04:45)
[2017-11-22] MEDS: POTASSIUM CHLORIDE 20 MEQ CONTROLLED RELEASE TAB PO SCH (08:25)
[2017-11-22] MEDS: PRAMIPEXOLE DIHYDROCHLORIDE 0.25 MG TAB PO SCH ×2 (08:26→11:56)
[2017-11-22] MEDS: LEVODOPA/CARBIDOPA 1 TAB TABCR PO SCH ×2 (08:26→11:56)
[2017-11-22] MEDS: PRAVASTATIN SOD 20 MG TAB PO SCH (08:26)
[2017-11-22] MEDS: SODIUM CHLORIDE 0.9% FLUSH 10 ML FLUSH IV FLUSH SCH (08:27)
[2017-11-22] MEDS: METOPROLOL TARTRATE 25 MG TAB PO SCH (08:27)
[2017-11-22] MEDS: FUROSEMIDE 20 MG TAB PO SCH (08:27)
[2017-11-22] MEDS: AMANTADINE HCL 100 MG CAP PO SCH ×2 (08:28→11:56)
[2017-11-22] MEDS ORDERED: APIXABAN 2.5 MG TABLET PO SCH (11:31)
[2017-11-22] MEDS ORDERED: APIX2.5T PO (13:53)
--- NOTE | 2017-11-22 13:53 | HHI.DCPOC ---
Discharge Care Plan Diagnosis: (1) Parkinson disease (2) Atrial fibrillation with rapid ventricular response Goals to Promote Your Health * To prevent worsening of your condition and complications * To maintain your health at the optimal level Directions to Meet Your Goals Take your medications as prescribed Follow your dietary instruction Follow activity as directed Keep your appointments as scheduled Take your immunizations and boosters as scheduled If your symptoms worsen call your PCP, if no PCP go to Urgent Care Center or Emergency Room Smoking is Dangerous to Your Health. Avoid second hand smoke Call the 24-hour hour crisis hotline for domestic abuse at Andreea Benton MD Nov 22, 2017 13:53
--- NOTE | 2017-11-22 14:05 | HHI.DS ---
Discharge Summary Admission Date Nov 20, 2017 at 17:51 Discharge Date: Nov 22, 2017 Admitting Diagnosis Afib RVR, sepsis secondaryt to UTI (1) Atrial fibrillation with rapid ventricular response ICD Code: I48.91 - Atrial fibrillation with rapid ventricular response Status: Acute (2) Parkinson disease ICD Code: G20 - Parkinson disease Status: Chronic Procedures none Brief History - From Admission This patient is an 82-year-old female with a known history of fibrillation. Apparently she had come increasingly short of breath over the last 48 hours. She thought she had a fever but did not have any objective findings of a fever on her thermometer. She has a history of Parkinson's disease and has been taking her medications without difficulty. She came to the emergency room because she was unsteady and she was having palpitations. In the emergency room she was found to have quite a bit of tachycardia. In fact heart rate was in the 140s and it was atrial fibrillation with a rapid ventricular response on our lna. She has a known history of atrial fibrillation and has been taking metoprolol. Here she was given IV Cardizem with some improvement. She is admitted to the hospital for further evaluation of her uncontrolled atrial fibrillation. CBC/BMP: 11/21/17 0515 11/21/17 0515 Significant Findings Laboratory Tests Test 11/20/17 16:13 11/20/17 16:20 11/21/17 05:15 White Blood Count 12.1 TH/MM3 (4.0-11.0) Red Blood Count 5.74 MIL/MM3 (4.00-5.30) Hemoglobin 17.3 GM/DL (11.6-15.3) 15.6 GM/DL (11.6-15.3) Hematocrit 51.9 % (35.0-46.0) 47.2 % (35.0-46.0) Platelet Count 112 TH/MM3 (150-450) Neutrophils (%) (Auto) 82.3 % (16.0-70.0) 77.3 % (16.0-70.0) Neutrophils # (Auto) 10.0 TH/MM3 (1.8-7.7) 8.3 TH/MM3 (1.8-7.7) Platelet Morphology Comment ENLARGED (NORMAL) Blood Urea Nitrogen 21 MG/DL (7-18) Creatinine 1.10 MG/DL (0.50-1.00) Random Glucose 142 MG/DL (74-106) Albumin 2.5 GM/DL (3.4-5.0) Alkaline Phosphatase 135 U/L (45-117) Estimat Glomerular Filtration Rate 48 ML/MIN (>89) 59 ML/MIN (>89) Troponin I LESS THAN 0.02 NG/ML B-Type Natriuretic Peptide 485 PG/ML (0-100) Urine Protein 30 mg/dL (NEG-TRACE) Urine Occult Blood TRACE (NEG) Urine Leukocyte Esterase SMALL (NEG) Urine RBC 4-9 /hpf (0-3) Urine WBC 25-49 /hpf (0-5) Urine WBC Clumps MANY (NONE) Urine Bacteria OCC /hpf (NONE) Urine Mucus FEW /lpf (OCC) Mean Platelet Volume 11.5 FL (7.0-11.0) Monocytes (%) (Auto) 8.5 % (0.0-8.0) Monocytes % 9 % (0-8) Neutrophils # (Manual) 7.8 TH/MM3 (1.8-7.7) Potassium Level 3.0 MEQ/L (3.5-5.1) Imaging Last Impressions Chest X-Ray 11/20/17 1508 Signed Impressions: Service Date/Time: Monday, November 20, 2017 15:21 - CONCLUSION: No acute disease. Sriram Mora MD PE at Discharge GENERAL: This is a well-nourished, well-developed patient, in no apparent distress. CARDIOVASCULAR: Regular rate and rhythm without murmurs, gallops, or rubs. RESPIRATORY: Clear to auscultation. Breath sounds equal bilaterally. No wheezes , rales, or rhonchi. GASTROINTESTINAL: Abdomen soft, non-tender, nondistended. Normal active bowel sounds MUSCULOSKELETAL: Extremities without clubbing, cyanosis, or edema. NEURO: Alert & Oriented x4 to person, place, time, situation. Moves all ext x4 Pt update on day of discharge Patient is now in sinus rhythm and has not required IV Cardizem, case discussed with cardiology who recommends Eliquis and continuing current medications Hospital Course This patient was seen and evaluated for atrial fibrillation which appears to be resolved as patient is now in sinus rhythm. She did require IV Cardizem. Her potassium was replaced and her echocardiogram was done. She was seen by her cdl flatbed truck driver. He did recommend Eliquis. This is under caution given the patient's Parkinson's and history of frequent falls. Pt Condition on Discharge: Good Discharge Disposition: Discharge Home Discharge Time: <= 30 minutes Discharge Instructions DIET: Follow Instructions for: As Tolerated, No Restrictions Activities you can perform: Regular-No Restrictions Follow up Referrals: Cardiology, Interventional - 2 Weeks with Tory Parham MD New Medications: Apixaban (Eliquis) 2.5 Mg Tab 2.5 MG PO BID for clot prevention, #62 TAB Continued Medications: Amantadine (Amantadine) 100 Mg Tab 100 MG PO TID, #60 TAB 0 Refills Carbidopa-Levodopa ER (Carbidopa-Levodopa ER) 25-100 Mg Tab 1 TAB PO TID for Parkinson Disease Mgmt, #30 TAB 0 Refills Furosemide (Lasix) 20 Mg Tab 20 MG PO DAILY, #30 TAB 0 Refills Lovastatin (Lovastatin) 20 Mg Tab 20 MG PO DAILY for Cholesterol Management, #30 TAB 0 Refills Metoprolol Tartrate (Metoprolol Tartrate) 25 Mg Tab 25 MG PO DAILY, #30 TAB 0 Refills Multiple Vitamins W/ Minerals (Multi For Her) 1 Tab Tab 1 TAB PO DAILY Pramipexole (Pramipexole) 0.125 Mg Tab 0.125 MG PO TID for Parkinson Disease Mgmt, #90 TAB 0 Refills Andreea Benton MD Nov 22, 2017 14:05
--- NOTE | 2017-11-22 15:13 | MB ---
cc: TORY PARHAM M.D.GIGI MIRELESRA DATE OF CONSULTATION: 11/21/2017 REASON FOR CONSULTATION: Cardiology consultation. Thank you Dr. Benton asked me to see this 82 year-old white female who is well-known to me, she has prior history of atrial fibrillation in the past. She was taking coumadin but was unable to take this so this was stopped and she was started on Plavix at this point she has new onset of atrial fibrillation with a rapid response. Currently she is in sinus rhythm. We will plan to go ahead and start her back from a blood thinner in order to avoid the risk of thromboembolism. Her weight and creatinine suggests that she should be on a lower dose of Eliquis of 2.5 mg p.o. b.i.d. she has a prior history of atrial ablation, to be taking metoprolol, she was given Cardizem and I now is in sinus rhythm. She is admitted with what appears to be a marked shortness of breath. She feels better now and would like to go home. REVIEW OF SYSTEMS Denies seizures, headaches, swelling, the rest of 12 point review of systems is negative. PAST MEDICAL HISTORY: Parkinsons. Atrial fibrillation Sick sinus syndrome Pacemaker placement Bladder lift. Cataracts Skin cancer Cholecystectomy. ALLERGIES BACTRIM NEOMYCIN POLYMYXIN IODINE FAMILY HISTORY Noncontributory. , living with . PHYSICAL EXAMINATION: VITAL SIGNS: Pulse was a 80, Respirations 26, HEAD, EYES, EARS, NOSE, AND THROAT: The eyes showed no xanthelasma. NECK: Showed JVD. HEART: She had two heart sounds. CHEST: Clear. ABDOMEN: Soft EXTREMITIES: legs with no edema. NEUROLOGIC: <<1:56>> LABORATORY: White count 10.7. Hemoglobin 16.6, platelet count 202,000. the potassium was low at the 3.0. Sodium 143, creatinine 18. ASSESSMENT/PLAN At this point she appears to be stable. We will manage her medically. She can be discharged later today. She will be started on Eliquis and will be continued on metoprolol, I have discussed this with Daniel Rincon in the field taking care of her. Tory Parham MD, FRCP,[facility] RYAN/kayla /2:26 PM /2:33 PM
== END 2017-11-22 15:45 | disposition home or self-care (01) | DRG 310 ==
LOC: PHED 14:54 → PHEDA 17:51 → PH3A 18:22 → PHICU 11-21 09:00
PROVIDERS: ADMIT Hospitalist; ATTEND Hospitalist
DX: I48.91 Unspecified atrial fibrillation (principal); D69.6 Thrombocytopenia, unspecified; G20 Parkinson's disease; E86.0 Dehydration; E87.6 Hypokalemia; R29.6 Repeated falls; R26.81 Unsteadiness on feet; M19.90 Unspecified osteoarthritis, unspecified site; K21.9 Gastro-esophageal reflux disease without esophagitis; I10 Essential (primary) hypertension; Z85.828 Personal history of other malignant neoplasm of skin; Z86.73 Personal history of transient ischemic attack (TIA), and cerebral infarction without residual deficits; Z88.1 Allergy status to other antibiotic agents; Z95.0 Presence of cardiac pacemaker
CPT/HCPCS: 71045; 80048; 80053; 81001; 83605; 83735; 83880; 84484; 85007; 85025; 85027; 87040; 87086; 87804; 93005; 93306; 94618; 96361; 96374; 96375; J0696; J1650; J7040

== ENCOUNTER 2018-02-10 09:27 | Emergency (ER) | payer MEDICARE ==
[~2018-02-10 09:27] MED LIST changes: +APIX2.5T PO; -ASPI-516 CHEW
[2018-02-10 09:43] VITALS: BP 137/90; PULSE 142; RESP 22; TEMP 97.8; O2SAT 95
[2018-02-10] MEDS ORDERED: WARF-18 PO (09:49)
[2018-02-10] MEDS ORDERED: FURO20TA PO (09:49)
[2018-02-10] MEDS ORDERED: CLOP75TA PO (09:49)
--- NOTE | 2018-02-10 09:56 | PD ---
HPI Chief Complaint: Cardiac Complaint Time Seen by Provider: 09:43 Travel History International Travel<30 days: No Contact w/Intl Traveler<30days: No Traveled to known affect area: No History of Present Illness HPI This 83-year-old female is complaining of shortness of breath and palpitations. She is concerned that she is having an episode of atrial fibrillation. She has had atrial fibrillation in the past. She had been on Eliquis twice daily but was recently changed to Coumadin because of the high cost of Eliquis. She had been on atenolol 25 mg daily. In November she had an EKG which showed that she was in sinus rhythm. She says that a week ago she was told to stop her atenolol, she believes her blood pressure may have been low. She says it 2 or 3 days ago her symptoms started and they have been progressive. She is not having chest pain. She does feel short of breath. She is concerned that she may have CHF. She says she can only walk a few steps before getting short of breath PFSH Past Medical History Hx Anticoagulant Therapy: Yes Arthritis: Yes Atrial Fibrillation: Yes Autoimmune Disease: No Blood Disorders: No Anxiety: No Depression: No Heart Rhythm Problems: Yes Cancer: Yes Cardiovascular Problems: Yes (HX of A Fib, pacemaker) High Cholesterol: Yes Chest Pain: No Congestive Heart Failure: No Cerebrovascular Accident: Yes (CVA 2015) Diabetes: No Diminished Hearing: No Endocrine: No Gastrointestinal Disorders: Yes (REFLUX) GERD: Yes Genitourinary: No Hepatitis: No Hiatal Hernia: No Hypertension: Yes Immune Disorder: No Implanted Vascular Access Dvce: Yes Musculoskeletal: Yes (ARTHRITIS) Neurologic: Yes (PARKINSONS) Parkinson's Disease: Yes Psychiatric: No Reproductive: No Respiratory: Yes Integumentary: No Immunizations Current: Yes Migraines: No Radiation Therapy: Yes Seizures: No Sleep Apnea: No Thyroid Disease: No Ulcer: No Menopausal: Yes Past Surgical History Abdominal Surgery: Yes (cholecystectomy) AICD: No Body Medical Devices: BREAST . Cardiac Surgery: Yes (pacemaker ) Cholecystectomy: Yes Eye Surgery: Yes (CATARACT) Genitourinary Surgery: Yes (BLADDER LIFT) Joint Replacement: No Neurologic Surgery: No Pacemaker: Yes Thoracic Surgery: No Tonsillectomy: Yes Other Surgery: Yes (skin cancer removal ) Social History Alcohol Use: Yes (socially ) Tobacco Use: No Substance Use: No Allergies-Medications (Allergen,Severity, Reaction): Coded Allergies: bacitracin (Unverified Allergy, Severe, RASH, 11/20/17) CONFIRM? gramicidin D (Unverified Allergy, Severe, RASH, 11/20/17) CONFIRM? neomycin (Unverified Allergy, Severe, RASH, 11/20/17) CONFIRM? polymyxin B (Unverified Allergy, Severe, RASH, 11/20/17) CONFIRM? povidone-iodine (Unverified Allergy, Severe, RASH, 11/20/17) TOPICAL procaine (Unverified Allergy, Severe, RASH, 11/20/17) CONFIRM? Uncoded Allergies: MYCINS (Allergy, Severe, 02/24/16) TOPICAL ANTIBIOTICS (Allergy, Mild, 05/09/06) Reported Meds & Prescriptions Reported Meds & Active Scripts Active Reported Warfarin 2.5 Mg Tab 2.5 Mg PO DAILY Clopidogrel (Clopidogrel Bisulfate) 75 Mg Tab 75 Mg PO DAILY Furosemide 20 Mg Tab 20 Mg PO DAILY Metoprolol Tartrate 25 Mg Tab 25 Mg PO DAILY Amantadine (Amantadine HCl) 100 Mg Tab 100 Mg PO TID Multi For Her (Multiple Vitamins W/ Minerals) 1 Tab Tab 1 Tab PO DAILY Lovastatin 20 Mg Tab 20 Mg PO DAILY Carbidopa-Levodopa ER 25-100 Mg Tab 1 Tab PO TID Pramipexole (Pramipexole Dihydrochloride) 0.125 Mg Tab 1.5 Mg PO TID Review of Systems Except as stated in HPI: all other systems reviewed are Neg General / Constitutional: No: Fever, Chills Eyes: No: Diploplia HENT: No: Headaches Cardiovascular: Positive: Palpitations Respiratory: Positive: Cough, Shortness of Breath Gastrointestinal: No: Nausea, Vomiting Genitourinary: No: Dysuria Musculoskeletal: No: Myalgias Skin: No Rash, No Itching Neurologic: Positive: Weakness Endocrine: No: Cold Intolerance Hematologic/Lymphatic: No: Easy Bruising Physical Exam Narrative GENERAL: Well-developed female SKIN: Focused skin assessment warm/dry. HEAD: Atraumatic. Normocephalic. EYES: Pupils equal and round. No scleral icterus. No injection or drainage. ENT: No nasal bleeding or discharge. Mucous membranes pink and moist. NECK: Trachea midline. No JVD. CARDIOVASCULAR: Rapid irregular rate and rhythm. No murmur appreciated. RESPIRATORY: No accessory muscle use. Clear to auscultation. Breath sounds equal bilaterally. GASTROINTESTINAL: Abdomen soft, non-tender, nondistended. Hepatic and splenic margins not palpable. MUSCULOSKELETAL: No obvious deformities. No clubbing. No cyanosis. Trace bilateral edema. NEUROLOGICAL: Awake and alert. No obvious cranial nerve deficits. Motor grossly within normal limits. Normal speech. PSYCHIATRIC: Appropriate mood and affect; insight and judgment normal. Data Data Last Documented VS Vital Signs Date Time Temp Pulse Resp B/P (MAP) Pulse Ox O2 Delivery O2 Flow Rate FiO2 02/10/18 10:42 85 16 119/77 (91) 97 Room Air 02/10/18 09:43 97.8 Orders Orders Ecg Monitoring (02/10/18 09:52) Blood Pressure (02/10/18 09:52) Iv Access Insert/Monitor (02/10/18 09:52) Oximetry (02/10/18 09:52) Vital Signs (02/10/18 09:52) Diltiazem Inj (Cardizem Inj) (02/10/18 10:00) Diltiazem Inj (Cardizem Inj) (02/10/18 10:00) Sodium Chloride 0.9% Flush (Ns Flush) (02/10/18 10:00) Complete Blood Count With Diff (02/10/18 09:52) Comprehensive Metabolic Panel (02/10/18 09:52) Troponin I (02/10/18 09:52) B-Type Natriuretic Peptide (02/10/18 09:52) Prothrombin Time / Inr (Pt) (02/10/18 09:52) Act Partial Throm Time (Ptt) (02/10/18 09:52) Magnesium (Mg) (02/10/18 09:52) Thyroid Stimulating Hormone (02/10/18 09:52) Chest, Single Ap (02/10/18 09:52) Labs Laboratory Tests Test 02/10/18 09:55 White Blood Count 6.7 TH/MM3 Red Blood Count 5.35 MIL/MM3 Hemoglobin 16.0 GM/DL Hematocrit 49.0 % Mean Corpuscular Volume 91.5 FL Mean Corpuscular Hemoglobin 29.9 PG Mean Corpuscular Hemoglobin Concent 32.7 % Red Cell Distribution Width 14.0 % Platelet Count 207 TH/MM3 Mean Platelet Volume 10.6 FL Neutrophils (%) (Auto) 68.1 % Lymphocytes (%) (Auto) 20.9 % Monocytes (%) (Auto) 7.3 % Eosinophils (%) (Auto) 2.9 % Basophils (%) (Auto) 0.8 % Neutrophils # (Auto) 4.5 TH/MM3 Lymphocytes # (Auto) 1.4 TH/MM3 Monocytes # (Auto) 0.5 TH/MM3 Eosinophils # (Auto) 0.2 TH/MM3 Basophils # (Auto) 0.1 TH/MM3 CBC Comment DIFF FINAL Differential Comment Prothrombin Time 22.7 SEC Prothromb Time International Ratio 2.2 RATIO Activated Partial Thromboplast Time 32.0 SEC Blood Urea Nitrogen 12 MG/DL Creatinine 0.99 MG/DL Random Glucose 128 MG/DL Total Protein 7.6 GM/DL Albumin 3.6 GM/DL Calcium Level 9.4 MG/DL Magnesium Level 2.1 MG/DL Alkaline Phosphatase 157 U/L Aspartate Amino Transf (AST/SGOT) 24 U/L Alanine Aminotransferase (ALT/SGPT) 11 U/L Total Bilirubin 0.9 MG/DL Sodium Level 141 MEQ/L Potassium Level 3.6 MEQ/L Chloride Level 108 MEQ/L Carbon Dioxide Level 25.9 MEQ/L Anion Gap 7 MEQ/L Estimat Glomerular Filtration Rate 54 ML/MIN Troponin I LESS THAN 0.02 NG/ML B-Type Natriuretic Peptide 335 PG/ML Thyroid Stimulating Hormone 3rd Gen 2.150 uIU/ML MDM Medical Decision Making Medical Screen Exam Complete: Yes Emergency Medical Condition: Yes Medical Record Reviewed: Yes Differential Diagnosis Diagnosis includes rapid atrial fibrillation, CHF Narrative Course EKG shows atrial fibrillation. The patient has been in atrial fibrillation in the past but in November she was in sinus rhythm. She had been in atenolol until a week ago and was stopped. seems she went into atrial fibrillation on 2 or 3 days later. The atenolol was stopped because of low blood pressure. I think a trial of Cardizem would be warranted. In the emergency department she was given Cardizem followed by a drip in anticipation of admission however she has converted to sinus rhythm and strongly wishes to be released. She will be released Diagnosis Primary Impression: Atrial fibrillation with rapid ventricular response Scripts Diltiazem CD 24 HR (Cardizem CD 24 HR) 120 Mg Caper 120 MG PO DAILY for 30 Days, #30 CAP 0 Refills Prov: Ac Myers MD 02/10/18 Disposition: 01 DISCHARGE HOME Condition: Stable Ac Myers MD Feb 10, 2018 09:56
[2018-02-10] MEDS ORDERED: DILTIAZEM HCL 25 MG/5 ML VIAL IV PUSH ONE (10:00)
[2018-02-10] MEDS ORDERED: DILTIAZEM INJ 125 MG in SODIUM CHLORIDE 0.9% INJ 100 ML IV PRN (10:00)
[2018-02-10] MEDS ORDERED: SODIUM CHLORIDE 0.9% FLUSH 10 ML FLUSH IV FLUSH PRN (10:00)
[2018-02-10 10:09] LABS: AUTOMATED NEUTROPHIL # 4.5 TH/MM3 (1.8-7.7); BASOPHIL # 0.1 TH/MM3 (0-0.2); BASOPHIL % 0.8 % (0.0-2.0); EOSINOPHIL # 0.2 TH/MM3 (0-0.4); EOSINOPHIL % 2.9 % (0.0-4.0); LYMPH % 20.9 % (9.0-44.0); LYMPHOCYTE # 1.4 TH/MM3 (1.0-4.8); MEAN CELL VOLUME 91.5 FL (80.0-100.0); MEAN CORPUSCULAR HEMOGLOBIN 29.9 PG (27.0-34.0); MEAN CORPUSCULAR HGB CONC 32.7 % (32.0-36.0); MEAN PLATELET VOLUME 10.6 FL (7.0-11.0); MONO % 7.3 % (0.0-8.0); MONOCYTE # 0.5 TH/MM3 (0-0.9); NEUT % 68.1 % (16.0-70.0); PLATELET COUNT 207 TH/MM3 (150-450); RED BLOOD COUNT 5.35 MIL/MM3 (4.00-5.30); WHITE BLOOD COUNT 6.7 TH/MM3 (4.0-11.0)
[2018-02-10 10:15] VITALS: BP 104/82; PULSE 144; RESP 16; O2SAT 97
[2018-02-10 10:15] LABS: CHLORIDE 108 MEQ/L (98-107); SODIUM (NA) 141 MEQ/L (136-145)
[2018-02-10 10:19] LABS: ALBUMIN 3.6 GM/DL (3.4-5.0); BICARBONATE 25.9 MEQ/L (21.0-32.0); BLOOD UREA NITROGEN 12 MG/DL (7-18); CALCIUM 9.4 MG/DL (8.5-10.1); GLUCOSE,RANDOM 128 MG/DL (74-106); MAGNESIUM 2.1 MG/DL (1.5-2.5)
--- NOTE | 2018-02-10 10:19 | RADRPT ---
EXAM DATE/TIME: 02/10/2018 10:07 [facility] COMPARISON: CHEST SINGLE AP, November 20, 2017, 15:21. INDICATIONS : Short of breath MEDICAL HISTORY : Cerebrovascular disease. Cardiovascular disease Hypertension SURGICAL HISTORY : Pacemaker. ENCOUNTER: Initial ACUITY: 1 day PAIN SCORE: 0/10 LOCATION: Bilateral chest FINDINGS: A single view of the chest demonstrates the lungs to be symmetrically aerated without evidence of mas s, infiltrate or effusion. The cardiomediastinal contours are unremarkable. The left subclavian AV sequential transvenous pacer remains in place. Partially calcified breast implants are again noted. O sseous structures are intact. Tracheal calcifications are again noted. CONCLUSION: No acute disease. There is no evidence of pneumonia. Sriram Mora MD on February 10, 2018 at 10:15 Board Certified Radiologist. This report was verified electronically.
[2018-02-10 10:21] LABS: INTERNATIONAL NORMALIZED RATIO 2.2 RATIO; PROTHROMBIN TIME - PATIENT 22.7 SEC (9.8-11.6)
[2018-02-10 10:22] LABS: ALT (GPT) 11 U/L (10-53); AST (GOT) 24 U/L (15-37)
[2018-02-10 10:23] LABS: CREATININE 0.99 MG/DL (0.50-1.00); GLOMERULAR FILTRATION RATE 54 ML/MIN (>89)
[2018-02-10 10:24] LABS: TOTAL BILIRUBIN ADULT 0.9 MG/DL (0.2-1.0); TOTAL PROTEIN 7.6 GM/DL (6.4-8.2)
[2018-02-10 10:25] LABS: ALKALINE PHOSPHATASE 157 U/L (45-117)
[2018-02-10 10:28] LABS: TROPONIN I LESS THAN 0.02 NG/ML (0.02-0.05)
[2018-02-10 10:42] VITALS: BP 119/77; PULSE 85; RESP 16; O2SAT 97
[2018-02-10] MEDS ORDERED: CARD120C4 PO (11:39)
[2018-02-10 11:40] VITALS: BP 110/68; PULSE 62; RESP 16; O2SAT 97
--- NOTE | 2018-02-10 20:56 | EKG ---
Date Performed: 02/10/2018 Time Performed: 09:40:11 PTAGE: 83 years EKG: ATRIAL FIBRILLATION WITH RAPID VENTRICULAR RESPONSE VOLTAGE CRITERIA FOR LVH, CONSIDER NORM AL VARIANT ST/T-WAVE ABNORMALITY, CONSIDER LATERAL ISCHEMIA ABNORMAL ECG NO PREVIOUS TRACING DOCTOR: Vu Rodriguez Interpretating Date/Time 02/10/2018 20:55:23
== END 2018-02-10 12:04 | disposition home or self-care (01) ==
LOC: PHED 09:27
DX: I48.91 Unspecified atrial fibrillation (principal); R00.2 Palpitations; R06.02 Shortness of breath; R53.1 Weakness; I10 Essential (primary) hypertension; R94.31 Abnormal electrocardiogram [ECG] [EKG]; M19.90 Unspecified osteoarthritis, unspecified site; E78.00 Pure hypercholesterolemia, unspecified; Z86.73 Personal history of transient ischemic attack (TIA), and cerebral infarction without residual deficits
CPT/HCPCS: 71045; 80053; 83735; 83880; 84443; 84484; 85025; 85610; 85730; 93005; 96365; 96375

== ENCOUNTER 2018-02-18 19:22 | Emergency (ER) | payer MEDICARE ==
[~2018-02-18] VITALS: Ht 165.1 cm; Wt 88.0 kg
[2018-02-18] VITALS (9 sets, daily range): BP systolic 84–149; BP diastolic 60–90; PULSE 77–134; RESP 18–20; TEMP 97.5; O2SAT 94–98
[~2018-02-18 19:22] MED LIST changes: -APIX2.5T PO; +CARD120C4 PO; +CLOP75TA PO; -FURO1TAB62 PO; +FURO20TA PO; +WARF-18 PO
[2018-02-18] MEDS ORDERED: DILTIAZEM HCL 25 MG/5 ML VIAL IV ONE ×2 (20:00)
[2018-02-18] MEDS ORDERED: SODIUM CHLORID 0.9% 500 ML INJ 500 ML IV SCH (20:00)
[2018-02-18] MEDS ORDERED: SODIUM CHLORIDE 0.9% FLUSH 10 ML FLUSH IVF PRN (20:00)
[2018-02-18] MEDS ORDERED: NITROGLYCERIN 0.4 MG SL 25 TABS/BTL SL ONE (20:00)
[2018-02-18] MEDS ORDERED: ASPIRIN 81 MG CHEW TAB PO ONE (20:00)
[2018-02-18 20:06] LABS: AUTOMATED NEUTROPHIL # 4.4 TH/MM3 (1.8-7.7); BASOPHIL # 0.1 TH/MM3 (0-0.2); BASOPHIL % 1.4 % (0.0-2.0); EOSINOPHIL # 0.1 TH/MM3 (0-0.4); EOSINOPHIL % 1.4 % (0.0-4.0); HEMATOCRIT 44.3 % (35.0-46.0); HEMOGLOBIN 14.2 GM/DL (11.6-15.3); LYMPH % 19.4 % (9.0-44.0); LYMPHOCYTE # 1.2 TH/MM3 (1.0-4.8); MEAN CELL VOLUME 91.3 FL (80.0-100.0); MEAN CORPUSCULAR HEMOGLOBIN 29.3 PG (27.0-34.0); MEAN CORPUSCULAR HGB CONC 32.1 % (32.0-36.0); MEAN PLATELET VOLUME 10.8 FL (7.0-11.0); MONO % 6.1 % (0.0-8.0); MONOCYTE # 0.4 TH/MM3 (0-0.9); NEUT % 71.7 % (16.0-70.0); PLATELET COUNT 206 TH/MM3 (150-450); RED BLOOD COUNT 4.86 MIL/MM3 (4.00-5.30); RED CELL DISTRIBUTION WIDTH 13.6 % (11.6-17.2); WHITE BLOOD COUNT 6.2 TH/MM3 (4.0-11.0)
--- NOTE | 2018-02-18 20:14 | PD ---
HPI Chief Complaint: Cardiac Complaint Time Seen by Provider: 19:51 Travel History International Travel<30 days: No Contact w/Intl Traveler<30days: No Traveled to known affect area: No History of Present Illness HPI 83-year-old female with a past medical history of peripheral artery disease, paroxysmal A. fib with a pacemaker, hypertension, CVA on Coumadin presents to the emergency room with progressive shortness of breath since this afternoon. Patient states she feels her heart racing. Patient has the symptoms usually when she is in A. fib. Patient denies any chest pain, shortness of breath at rest, abdominal pain, fever, chills, cough, diarrhea or constipation. Patient denies any dizziness, loss of consciousness, GI bleeding. PFSH Past Medical History Hx Anticoagulant Therapy: Yes Arthritis: Yes Atrial Fibrillation: Yes Autoimmune Disease: No Blood Disorders: No Anxiety: No Depression: No Heart Rhythm Problems: Yes Cancer: Yes Cardiovascular Problems: Yes (HX of A Fib, pacemaker) High Cholesterol: Yes Chest Pain: No Congestive Heart Failure: No Cerebrovascular Accident: Yes (CVA 2015) Diabetes: No Diminished Hearing: No Endocrine: No Gastrointestinal Disorders: Yes (REFLUX) GERD: Yes Genitourinary: No Hepatitis: No Hiatal Hernia: No Hypertension: Yes Immune Disorder: No Implanted Vascular Access Dvce: Yes Musculoskeletal: Yes (ARTHRITIS) Neurologic: Yes (PARKINSONS) Parkinson's Disease: Yes Psychiatric: No Reproductive: No Respiratory: Yes Integumentary: No Immunizations Current: Yes Migraines: No Radiation Therapy: Yes Seizures: No Sleep Apnea: No Thyroid Disease: No Ulcer: No Tetanus Vaccination: < 5 Years Influenza Vaccination: Yes Menopausal: Yes Past Surgical History Abdominal Surgery: Yes (cholecystectomy) AICD: No Body Medical Devices: BREAST . Cardiac Surgery: Yes (pacemaker ) Cholecystectomy: Yes Eye Surgery: Yes (CATARACT) Genitourinary Surgery: Yes (BLADDER LIFT) Joint Replacement: No Neurologic Surgery: No Pacemaker: Yes Thoracic Surgery: No Tonsillectomy: Yes Other Surgery: Yes (skin cancer removal ) Social History Alcohol Use: Yes (socially ) Tobacco Use: No Substance Use: No Allergies-Medications (Allergen,Severity, Reaction): Coded Allergies: bacitracin (Unverified Allergy, Severe, RASH, 02/18/18) CONFIRM? gramicidin D (Unverified Allergy, Severe, RASH, 02/18/18) CONFIRM? neomycin (Unverified Allergy, Severe, RASH, 02/18/18) CONFIRM? polymyxin B (Unverified Allergy, Severe, RASH, 02/18/18) CONFIRM? povidone-iodine (Unverified Allergy, Severe, RASH, 02/18/18) TOPICAL procaine (Unverified Allergy, Severe, RASH, 02/18/18) CONFIRM? Uncoded Allergies: MYCINS (Allergy, Severe, 02/24/16) TOPICAL ANTIBIOTICS (Allergy, Mild, 05/09/06) Reported Meds & Prescriptions Reported Meds & Active Scripts Active Cardizem CD 24 HR (Diltiazem CD 24 HR) 120 Mg Caper 120 Mg PO DAILY 30 Days Reported Warfarin 2.5 Mg Tab 2.5 Mg PO DAILY Clopidogrel (Clopidogrel Bisulfate) 75 Mg Tab 75 Mg PO DAILY Furosemide 20 Mg Tab 20 Mg PO DAILY Metoprolol Tartrate 25 Mg Tab 25 Mg PO DAILY Amantadine (Amantadine HCl) 100 Mg Tab 100 Mg PO TID Multi For Her (Multiple Vitamins W/ Minerals) 1 Tab Tab 1 Tab PO DAILY Lovastatin 20 Mg Tab 20 Mg PO DAILY Carbidopa-Levodopa ER 25-100 Mg Tab 1 Tab PO TID Pramipexole (Pramipexole Dihydrochloride) 0.125 Mg Tab 1.5 Mg PO TID Review of Systems Except as stated in HPI: all other systems reviewed are Neg General / Constitutional: No: Fever, Chills Eyes: No: Blurred Vision, Redness, Pain HENT: No: Rhinorrhea, Congestion, Neck Stiffness, Neck Pain, Earache Cardiovascular: Positive: Palpitations, Irregular Rhythm, Tachycardia, Dyspnea on exertion Respiratory: Positive: Shortness of Breath Gastrointestinal: No: Nausea, Vomiting, Diarrhea, Abdominal Pain, Hematochezia , Constipation Genitourinary: No: Dysuria Musculoskeletal: No: Myalgias Skin: No Rash, No Hives Neurologic: No: Weakness, Dizziness, Syncope, Headache, Slurred Speech, Seizures Psychiatric: No: Suicidal Ideations Physical Exam Narrative Vital Signs Date Time Temp Pulse Resp B/P (MAP) Pulse Ox O2 Delivery O2 Flow Rate FiO2 02/18/18 19:32 133 Room Air 02/18/18 19:24 97.5 20 149/90 (109) 94 GENERAL: Patient is alert and oriented -3 SKIN: Focused skin assessment warm/dry. HEAD: Atraumatic. Normocephalic. EYES: Pupils equal and round. No scleral icterus. No injection or drainage. ENT: No nasal bleeding or discharge. Mucous membranes pink and moist. NECK: Trachea midline. No JVD. CARDIOVASCULAR: Tachycardic rate with irregular irregularities. No murmur appreciated. Trace pitting edema on lower extremities RESPIRATORY: No accessory muscle use. Clear to auscultation. Breath sounds equal bilaterally. GASTROINTESTINAL: Abdomen soft, non-tender, nondistended. Hepatic and splenic margins not palpable. MUSCULOSKELETAL: No obvious deformities. No clubbing. No cyanosis. No edema. NEUROLOGICAL: Awake and alert. No obvious cranial nerve deficits. Motor grossly within normal limits. Normal speech. PSYCHIATRIC: Appropriate mood and affect; insight and judgment normal. Data Data Last Documented VS Vital Signs Date Time Temp Pulse Resp B/P (MAP) Pulse Ox O2 Delivery O2 Flow Rate FiO2 02/18/18 22:26 77 20 121/60 (80) 98 02/18/18 22:23 Room Air 02/18/18 19:24 97.5 Orders Orders Electrocardiogram (02/18/18 19:51) Basic Metabolic Panel (Bmp) (02/18/18 19:51) B-Type Natriuretic Peptide (02/18/18 19:51) Ckmb (Isoenzyme) Profile (02/18/18 19:51) Complete Blood Count With Diff (02/18/18 19:51) Magnesium (Mg) (02/18/18 19:51) Prothrombin Time / Inr (Pt) (02/18/18 19:51) Act Partial Throm Time (Ptt) (02/18/18 19:51) Troponin I (02/18/18 19:51) Ecg Monitoring (02/18/18 19:51) Bilateral Bp Monitoring (02/18/18 19:51) Iv Access Insert/Monitor (02/18/18 19:51) Oximetry (02/18/18 19:51) Oxygen Administration (02/18/18 19:51) Aspirin Chew (Aspirin Chew) (02/18/18 20:00) Sodium Chloride 0.9% Flush (Ns Flush) (02/18/18 20:00) Nitroglycerin Sl (Nitrostat Sl) (02/18/18 20:00) Chest, Pa & Lat (02/18/18 19:51) Diltiazem Inj (Cardizem Inj) (02/18/18 20:00) Diltiazem Inj (Cardizem Inj) (02/18/18 20:00) Sodium Chlorid 0.9% 500 Ml Inj (Ns 500 M (02/18/18 20:00) Metoprolol Tartrate Inj (Lopressor Inj) (02/18/18 21:45) Electrocardiogram (02/18/18 ) Ed Discharge Order (02/18/18 22:35) Labs Laboratory Tests Test 02/18/18 20:00 White Blood Count 6.2 TH/MM3 Red Blood Count 4.86 MIL/MM3 Hemoglobin 14.2 GM/DL Hematocrit 44.3 % Mean Corpuscular Volume 91.3 FL Mean Corpuscular Hemoglobin 29.3 PG Mean Corpuscular Hemoglobin Concent 32.1 % Red Cell Distribution Width 13.6 % Platelet Count 206 TH/MM3 Mean Platelet Volume 10.8 FL Neutrophils (%) (Auto) 71.7 % Lymphocytes (%) (Auto) 19.4 % Monocytes (%) (Auto) 6.1 % Eosinophils (%) (Auto) 1.4 % Basophils (%) (Auto) 1.4 % Neutrophils # (Auto) 4.4 TH/MM3 Lymphocytes # (Auto) 1.2 TH/MM3 Monocytes # (Auto) 0.4 TH/MM3 Eosinophils # (Auto) 0.1 TH/MM3 Basophils # (Auto) 0.1 TH/MM3 CBC Comment DIFF FINAL Differential Comment Prothrombin Time 21.0 SEC Prothromb Time International Ratio 2.1 RATIO Activated Partial Thromboplast Time 30.6 SEC Blood Urea Nitrogen 13 MG/DL Creatinine 1.10 MG/DL Random Glucose 146 MG/DL Calcium Level 9.3 MG/DL Magnesium Level 2.2 MG/DL Sodium Level 139 MEQ/L Potassium Level 4.3 MEQ/L Chloride Level 104 MEQ/L Carbon Dioxide Level 26.6 MEQ/L Anion Gap 8 MEQ/L Estimat Glomerular Filtration Rate 48 ML/MIN Total Creatine Kinase 75 U/L Troponin I LESS THAN 0.02 NG/ML B-Type Natriuretic Peptide 96 PG/ML Vital Signs Date Time Temp Pulse Resp B/P (MAP) Pulse Ox O2 Delivery O2 Flow Rate FiO2 02/18/18 22:26 77 20 121/60 (80) 98 02/18/18 22:23 77 20 121/60 (80) 98 Room Air 02/18/18 22:07 108 20 129/70 (89) 98 Room Air 02/18/18 21:18 102 20 144/82 (102) 98 Room Air 02/18/18 20:44 88 18 108/61 (77) 98 Room Air 02/18/18 20:27 98 Room Air 02/18/18 20:27 20 98 Room Air 02/18/18 20:23 91 20 84/67 (73) 98 Room Air 02/18/18 20:15 134 20 116/84 (95) 98 Room Air 02/18/18 19:32 133 Room Air 02/18/18 19:24 97.5 134 20 149/90 (109) 94 MDM Medical Decision Making Medical Screen Exam Complete: Yes Emergency Medical Condition: Yes Medical Record Reviewed: Yes Differential Diagnosis A. fib with RVR, CHF exacerbation, Narrative Course Patient received 1 dose of Cardizem 10 mg followed by 5 mg of metoprolol. Patient was in the ER for approximately 3 hours during which she was stable in no apparent distress. Patient had a road test and walked to the bathroom and back without difficulty. Patient denies any shortness of breath. Or chest pain during the ER visit. She will follow-up with her snuff blender an outpatient tomorrow. Diagnosis Primary Impression: Atrial fibrillation with rapid ventricular response Referrals: Relationship Executive 1 day Patient Instructions: A-fib (Atrial Fibrillation) (ED), General Instructions Disposition: 01 DISCHARGE HOME Condition: Stable Polo Bhatia MD February 18, 2018 20:14
[2018-02-18 20:16] LABS: CHLORIDE 104 MEQ/L (98-107); SODIUM (NA) 139 MEQ/L (136-145)
[2018-02-18 20:19] LABS: BICARBONATE 26.6 MEQ/L (21.0-32.0); CALCIUM 9.3 MG/DL (8.5-10.1)
[2018-02-18 20:20] LABS: BLOOD UREA NITROGEN 13 MG/DL (7-18); GLUCOSE,RANDOM 146 MG/DL (74-106); MAGNESIUM 2.2 MG/DL (1.5-2.5)
[2018-02-18 20:23] LABS: GLOMERULAR FILTRATION RATE 48 ML/MIN (>89)
[2018-02-18 20:28] LABS: INTERNATIONAL NORMALIZED RATIO 2.1 RATIO; TROPONIN I LESS THAN 0.02 NG/ML (0.02-0.05)
[2018-02-18] MEDS ORDERED: METOPROLOL TARTRATE 5 MG/5 ML VIAL IV PUSH ONE (21:45)
--- NOTE | 2018-02-18 21:56 | RADRPT ---
EXAM DATE/TIME: 02/18/2018 21:07 [facility] COMPARISON: CHEST SINGLE AP, February 10, 2018, 10:07. INDICATIONS : Chest pain. MEDICAL HISTORY : Cerebrovascular disease. Cardiovascular disease Hypertension. SURGICAL HISTORY : Pacemaker. Breast implants. ENCOUNTER: Initial ACUITY: 2 days PAIN SCORE: 4/10 LOCATION: Bilateral chest FINDINGS: PA and lateral views of the chest demonstrate pacer leads overlying right atrium and right ventricle. Capsular calcifications at breast implants. No consolidation or significant effusion. Heart size is within normal limits. Tortuous aorta. CONCLUSION: 1. No acute findings. Pacer leads in right atrium and right ventricle. No consolidation or effusion. Aubrey Harrison MD on February 18, 2018 at 21:52 Board Certified Radiologist. This report was verified electronically.
--- NOTE | 2018-02-19 10:26 | EKG ---
Date Performed: 02/18/2018 Time Performed: 19:36:04 PTAGE: 83 years EKG: Atrial fibrillation with rapid ventricular response Intermittent pacing probably due to rat e behavior Clinical follow-up recommended PREVIOUS TRACING : 02/10/2018 09.40 DOCTOR: Marlon Christianson Interpretating Date/Time 02/19/2018 10:26:12
--- NOTE | 2018-02-19 10:28 | EKG ---
Date Performed: 02/18/2018 Time Performed: 21:52:26 PTAGE: 83 years EKG: Atrial fibrillation with rapid ventricular response Intermittent pacing probably due to rat e behavior Clinical follow-up recommended PREVIOUS TRACING : 02/18/2018 19.36 Since the previous tracing, no significant change not ed DOCTOR: Marlon Christianson Interpretating Date/Time 02/19/2018 10:26:58
== END 2018-02-18 22:45 | disposition home or self-care (01) ==
LOC: PHED 19:22
DX: I48.91 Unspecified atrial fibrillation (principal); R00.0 Tachycardia, unspecified; I10 Essential (primary) hypertension; M19.90 Unspecified osteoarthritis, unspecified site; E78.00 Pure hypercholesterolemia, unspecified; K21.9 Gastro-esophageal reflux disease without esophagitis; G20 Parkinson's disease; Z86.73 Personal history of transient ischemic attack (TIA), and cerebral infarction without residual deficits; Z79.01 Long term (current) use of anticoagulants
CPT/HCPCS: 71046; 80048; 82550; 83735; 83880; 84484; 85025; 85610; 85730; 93005; 96361; 96374; 96375; 99285; J7040

== ENCOUNTER 2018-03-15 17:05 | Emergency (ER) | payer MEDICARE ==
[~2018-03-15] VITALS: Ht 162.6 cm; Wt 58.0 kg
[2018-03-15 17:09] VITALS: BP 148/70; PULSE 70; RESP 18; TEMP 97.9; O2SAT 94
--- NOTE | 2018-03-15 17:29 | PD ---
HPI Chief Complaint: Fall Time Seen by Provider: 17:16 Travel History International Travel<30 days: No Contact w/Intl Traveler<30days: No Traveled to known affect area: No History of Present Illness HPI 83-year-old female presents to the emergency department her at bedside for evaluation after a fall that occurred just prior to arrival. Patient states she was going down an incline when she lost her balance and fell on her left arm. She has abrasion to the left arm and left lower leg. Patient adamantly denies hitting her head. Her states that he witnessed the fall she did not hit her head. She denies any neck pain or back pain. No chest pain or shortness breath. No abdominal pain. Nausea, vomiting, diarrhea. She does have history of atrial fibrillation and is on Coumadin. She also has history of Parkinson's disease. He has been states that she is concerned because she is having bilateral lower extremity edema for the past 2 days. Patient states she has had this in the past. He states that she has been falling more frequently. He is concerned that her medications are causing her to fall. No exacerbating or alleviating factors. Moderate severity. Patient states her tetanus immunization is up-to-date. PFSH Past Medical History Hx Anticoagulant Therapy: Yes Arthritis: Yes Atrial Fibrillation: Yes Autoimmune Disease: No Blood Disorders: No Anxiety: No Depression: No Heart Rhythm Problems: Yes Cancer: Yes Cardiovascular Problems: Yes (A-Fib) High Cholesterol: Yes Chest Pain: No Congestive Heart Failure: No Cerebrovascular Accident: Yes (Stroke) Diabetes: No Diminished Hearing: No Endocrine: No Gastrointestinal Disorders: Yes (REFLUX) GERD: Yes Genitourinary: No Hepatitis: No Hiatal Hernia: No Hypertension: Yes Immune Disorder: No Implanted Vascular Access Dvce: Yes Musculoskeletal: Yes (ARTHRITIS) Neurologic: Yes (PARKINSONS) Parkinson's Disease: Yes Psychiatric: No Reproductive: No Respiratory: Yes Integumentary: No Immunizations Current: Yes Migraines: No Radiation Therapy: Yes Seizures: No Sleep Apnea: No Thyroid Disease: No Ulcer: No ?: Not Menopausal: Yes Past Surgical History Abdominal Surgery: Yes (cholecystectomy) AICD: No Body Medical Devices: BREAST . Cardiac Surgery: Yes (pacemaker ) Cholecystectomy: Yes Eye Surgery: Yes (CATARACT) Genitourinary Surgery: Yes (BLADDER LIFT) Joint Replacement: No Neurologic Surgery: No Pacemaker: Yes Thoracic Surgery: No Tonsillectomy: Yes Other Surgery: Yes (skin cancer removal ) Social History Alcohol Use: Yes (socially ) Tobacco Use: No Substance Use: No Allergies-Medications (Allergen,Severity, Reaction): Coded Allergies: bacitracin (Unverified Allergy, Severe, RASH, 03/15/18) CONFIRM? gramicidin D (Unverified Allergy, Severe, RASH, 03/15/18) CONFIRM? neomycin (Unverified Allergy, Severe, RASH, 03/15/18) CONFIRM? polymyxin B (Unverified Allergy, Severe, RASH, 03/15/18) CONFIRM? povidone-iodine (Unverified Allergy, Severe, RASH, 03/15/18) TOPICAL procaine (Unverified Allergy, Severe, RASH, 03/15/18) CONFIRM? Uncoded Allergies: MYCINS (Allergy, Severe, 02/24/16) TOPICAL ANTIBIOTICS (Allergy, Mild, 05/09/06) Reported Meds & Prescriptions Reported Meds & Active Scripts Active Cardizem CD 24 HR (Diltiazem CD 24 HR) 120 Mg Caper 120 Mg PO DAILY 30 Days Reported Warfarin 2.5 Mg Tab 2.5 Mg PO DAILY Clopidogrel (Clopidogrel Bisulfate) 75 Mg Tab 75 Mg PO DAILY Furosemide 20 Mg Tab 20 Mg PO DAILY Amantadine (Amantadine HCl) 100 Mg Tab 100 Mg PO TID Multi For Her (Multiple Vitamins W/ Minerals) 1 Tab Tab 1 Tab PO DAILY Lovastatin 20 Mg Tab 20 Mg PO DAILY Carbidopa-Levodopa ER 25-100 Mg Tab 1 Tab PO TID Pramipexole (Pramipexole Dihydrochloride) 0.125 Mg Tab 1.5 Mg PO TID Review of Systems Except as stated in HPI: all other systems reviewed are Neg Physical Exam Narrative GENERAL: Well-nourished, well-developed elderly patient, afebrile. SKIN: Focused skin assessment warm/dry. Patient has abrasion/skin tear to left forearm and an abrasion to the left lower leg HEAD: Normocephalic. Atraumatic. EYES: No scleral icterus. No injection or drainage. NECK: Supple, trachea midline. No JVD or lymphadenopathy. CARDIOVASCULAR: Regular rate and rhythm without murmurs, gallops, or rubs. Bilateral radial and pedal pulses are 2+. RESPIRATORY: Breath sounds equal bilaterally. No accessory muscle use. Lung sounds are clear to auscultation. GASTROINTESTINAL: Abdomen soft, non-tender, nondistended. MUSCULOSKELETAL: No cyanosis. 1+ bilateral lower extremity edema BACK: Nontender without obvious deformity. No CVA tenderness. Data Data Last Documented VS Vital Signs Date Time Temp Pulse Resp B/P (MAP) Pulse Ox O2 Delivery O2 Flow Rate FiO2 03/15/18 17:33 94 Room Air 03/15/18 17:09 97.9 70 18 148/70 (96) Orders Orders Electrocardiogram (03/15/18 17:23) Basic Metabolic Panel (Bmp) (03/15/18 17:23) Complete Blood Count With Diff (03/15/18:23) Magnesium (Mg) (03/15/18 17:23) B-Type Natriuretic Peptide (03/15/18 17:23) Act Partial Throm Time (Ptt) (03/15/18 17:23) Prothrombin Time / Inr (Pt) (03/15/18 17:23) Chest, Single Ap (03/15/18 17:23) Ecg Monitoring (03/15/18 17:23) Iv Access Insert/Monitor (03/15/18 17:23) Oximetry (03/15/18 17:23) Sodium Chloride 0.9% Flush (Ns Flush) (03/15/18 17:30) Urinalysis - C+S If Indicated (03/15/18 17:26) Wound Care (03/15/18 17:29) Labs Laboratory Tests Test 03/15/18 17:30 White Blood Count 7.2 TH/MM3 Red Blood Count 4.80 MIL/MM3 Hemoglobin 14.8 GM/DL Hematocrit 43.5 % Mean Corpuscular Volume 90.6 FL Mean Corpuscular Hemoglobin 30.9 PG Mean Corpuscular Hemoglobin Concent 34.1 % Red Cell Distribution Width 13.9 % Platelet Count 193 TH/MM3 Mean Platelet Volume 10.8 FL Neutrophils (%) (Auto) 72.6 % Lymphocytes (%) (Auto) 15.1 % Monocytes (%) (Auto) 8.7 % Eosinophils (%) (Auto) 2.9 % Basophils (%) (Auto) 0.7 % Neutrophils # (Auto) 5.2 TH/MM3 Lymphocytes # (Auto) 1.1 TH/MM3 Monocytes # (Auto) 0.6 TH/MM3 Eosinophils # (Auto) 0.2 TH/MM3 Basophils # (Auto) 0.1 TH/MM3 CBC Comment DIFF FINAL Differential Comment Prothrombin Time 24.3 SEC Prothromb Time International Ratio 2.4 RATIO Activated Partial Thromboplast Time 33.8 SEC Blood Urea Nitrogen 20 MG/DL Creatinine 1.20 MG/DL Random Glucose 92 MG/DL Calcium Level 9.5 MG/DL Magnesium Level 2.1 MG/DL Sodium Level 143 MEQ/L Potassium Level 4.0 MEQ/L Chloride Level 109 MEQ/L Carbon Dioxide Level 23.4 MEQ/L Anion Gap 11 MEQ/L Estimat Glomerular Filtration Rate 43 ML/MIN B-Type Natriuretic Peptide 88 PG/ML MDM Medical Decision Making Medical Screen Exam Complete: Yes Emergency Medical Condition: Yes Medical Record Reviewed: Yes Differential Diagnosis Skin tear versus electrolyte abnormality versus UTI versus dehydration versus CHF Narrative Course 83-year-old female presents to the emergency department for evaluation after a fall. However, her would also like her to have workup for bilateral lower extremity edema. According to previous records, patient has always had trace pitting edema. She is here on February 18 had reassuring workup. Patient is adamant that she did not hit her head. EKG, CBC, BMP, magnesium, BNP, PTT, PT/ INR, chest x-ray ordered and pending. Wound care will be completed to left arm and left leg. EKG shows SR, HR 63, no acute ST changes. CBC is unremarkable. BMP shows no acute abnormality. Magnesium is 2.1. BNP is 88. PTT is 33.8. PT/INR is 24.3/ 2.4. Chest x-ray shows no evidence of acute cardiopulmonary disease. Laboratory results are reassuring. I was unable to get a urine. The patient missed the cup when she was going to the bathroom. She denies any urinary symptoms. No dysuria, frequency, urgency. Laboratory findings are unchanged since her last the beginning of February. Falls could be possibly due to Parkinson' s disease. No evidence of CHF. INR is therapeutic therefore do not believe that the patient has a DVT. According to chart, leg edema has been an ongoing issue. Patient is stable for discharge. She is to follow-up with her primary care physician return here for any acute worsening of symptoms. The patient was discharged in stable condition with instructions, including return instructions and follow up instructions. Diagnosis Primary Impression: Skin tear of left upper extremity Additional Impressions: Avulsion of skin of left lower leg Qualified Codes: S81.802A - Unspecified open wound, left lower leg, initial encounter Leg edema Referrals: Primary Care Physician 3 days Patient Instructions: General Instructions, Leg Edema (ED), Skin Tear (ED) Additional Instructions: Clean abrasions twice daily with soap and water and apply [id number] antibiotic ointment. Keep clean and dry. Elevate bilateral legs. Follow-up with a primary care physician. Return to the emergency department for any acute worsening of symptoms. Med/Other Pt SpecificInfo: No Change to Meds Disposition: 01 DISCHARGE HOME Condition: Stable Liz Campos March 15, 2018 17:29
[2018-03-15] MEDS ORDERED: SODIUM CHLORIDE 0.9% FLUSH 10 ML FLUSH IVF PRN (17:30)
[2018-03-15 17:33] VITALS: O2SAT 94
[2018-03-15 17:46] LABS: AUTOMATED NEUTROPHIL # 5.2 TH/MM3 (1.8-7.7); BASOPHIL # 0.1 TH/MM3 (0-0.2); BASOPHIL % 0.7 % (0.0-2.0); EOSINOPHIL # 0.2 TH/MM3 (0-0.4); EOSINOPHIL % 2.9 % (0.0-4.0); HEMATOCRIT 43.5 % (35.0-46.0); HEMOGLOBIN 14.8 GM/DL (11.6-15.3); LYMPH % 15.1 % (9.0-44.0); LYMPHOCYTE # 1.1 TH/MM3 (1.0-4.8); MEAN CELL VOLUME 90.6 FL (80.0-100.0); MEAN CORPUSCULAR HEMOGLOBIN 30.9 PG (27.0-34.0); MEAN CORPUSCULAR HGB CONC 34.1 % (32.0-36.0); MEAN PLATELET VOLUME 10.8 FL (7.0-11.0); MONO % 8.7 % (0.0-8.0); MONOCYTE # 0.6 TH/MM3 (0-0.9); NEUT % 72.6 % (16.0-70.0); PLATELET COUNT 193 TH/MM3 (150-450); RED CELL DISTRIBUTION WIDTH 13.9 % (11.6-17.2); WHITE BLOOD COUNT 7.2 TH/MM3 (4.0-11.0)
[2018-03-15 18:08] LABS: INTERNATIONAL NORMALIZED RATIO 2.4 RATIO; PROTHROMBIN TIME - PATIENT 24.3 SEC (9.8-11.6)
--- NOTE | 2018-03-15 18:13 | RADRPT ---
EXAM DATE: 03/15/2018 6:05 PM EDT AGE/SEX: 83 years / Female INDICATIONS: A fib, weak,dizzy,shaking,falling, has heart moniter on CLINICAL DATA: This is the patient's initial encounter. Patient reports that signs and symptoms have been present for 1 day and indicates a pain score of 0/10. MEDICAL/SURGICAL HISTORY: . A fib Pacemaker. COMPARISON: [facility], CHEST SINGLE AP, 02/10/2018. . FINDINGS: Lungs are hyperinflated. Chronic interstitial prominence is evident throughout both lungs. There is n o evidence of consolidating airspace disease. Pacemaker appears to be in stable position. Calcified breast implants are identified. CONCLUSION: 1. COPD 2. No evidence of acute cardiopulmonary process. 3. Stable cardiac pacemaker. Electronically signed by: Nikita Lorenzo MD 03/15/2018 6:12 PM EDT
[2018-03-15 18:21] LABS: BICARBONATE 23.4 MEQ/L (21.0-32.0); CALCIUM 9.5 MG/DL (8.5-10.1); MAGNESIUM 2.1 MG/DL (1.5-2.5)
[2018-03-15 18:25] LABS: CREATININE 1.2 MG/DL (0.50-1.00)
--- NOTE | 2018-03-16 13:45 | EKG ---
Date Performed: 03/15/2018 Time Performed: 17:54:07 PTAGE: 83 years EKG: Sinus rhythm NONSPECIFIC T-WAVE ABNORMALITY BORDERLINE ECG Compared to PREVIOUS TRACING , previous tracing showed mainly a paced rhythm, this rhythm is sinus wi th rate 63, which may be faster than the pacer setting. No pacer activity seen on this tracing. PREVI OUS TRACIN02/18/2018 21.52 DOCTOR: Margarito Roque Interpretating Date/Time 03/16/2018 13:43:23
== END 2018-03-15 20:13 | disposition home or self-care (01) ==
LOC: PHEFT 17:05
DX: S41.112A Laceration without foreign body of left upper arm, initial encounter (principal); S81.802A Unspecified open wound, left lower leg, initial encounter; W10.2XXA Fall (on)(from) incline, initial encounter; R60.0 Localized edema; G20 Parkinson's disease; I48.91 Unspecified atrial fibrillation; I10 Essential (primary) hypertension; Z86.73 Personal history of transient ischemic attack (TIA), and cerebral infarction without residual deficits; R94.31 Abnormal electrocardiogram [ECG] [EKG]
CPT/HCPCS: 71045; 80048; 83735; 83880; 85025; 85610; 85730; 93005; 99285

== ENCOUNTER 2018-04-04 15:27 | Emergency (ER) | payer MEDICARE ==
[~2018-04-04 15:27] MED LIST changes: -METO25TA3 PO
[2018-04-04 15:31] VITALS: BP 200/79; PULSE 78; RESP 18; TEMP 98; O2SAT 98
[2018-04-04 17:36] VITALS: BP 141/89; PULSE 68; RESP 18; O2SAT 96
--- NOTE | 2018-04-04 18:04 | PD ---
HPI Chief Complaint: Skin Problem Time Seen by Provider: 17:13 Travel History International Travel<30 days: No Contact w/Intl Traveler<30days: No Traveled to known affect area: No History of Present Illness HPI The patient was seen and examined in the presence of the nurse. 3 weeks ago this patient fell and scraped her left lower leg on the driveway. It became infected. She has had an open wound for a while now. She is currently on Keflex and one other antibiotic. She went to the wound care center today and had the wound care physician evaluate. She was sent here for admission. Wound care physician did some debridement but felt that it needed more extensive debridement surgically. Symptom severity is mild. No fever. No alleviating factors. No exacerbating factors. She does take Coumadin for A. fib PFSH Past Medical History Hx Anticoagulant Therapy: Yes Arthritis: Yes Atrial Fibrillation: Yes Autoimmune Disease: No Blood Disorders: No Anxiety: No Depression: No Heart Rhythm Problems: Yes Cancer: Yes Cardiovascular Problems: Yes (A-Fib) High Cholesterol: Yes Chest Pain: No Congestive Heart Failure: No Cerebrovascular Accident: Yes (CVA) Diabetes: No Diminished Hearing: No Endocrine: No Gastrointestinal Disorders: Yes (REFLUX) GERD: Yes Genitourinary: No Hepatitis: No Hiatal Hernia: No Hypertension: Yes Immune Disorder: No Implanted Vascular Access Dvce: Yes Medical other: No Musculoskeletal: Yes (ARTHRITIS) Neurologic: Yes (PARKINSONS) Parkinson's Disease: Yes Psychiatric: No Reproductive: No Respiratory: Yes Integumentary: No Immunizations Current: Yes Migraines: No Radiation Therapy: Yes Seizures: No Sleep Apnea: No Thyroid Disease: No Ulcer: No Tetanus Vaccination: < 5 Years Menopausal: Yes Past Surgical History Abdominal Surgery: Yes (cholecystectomy) AICD: No Body Medical Devices: BREAST . Cardiac Surgery: Yes (pacemaker [employer]) Cholecystectomy: Yes Eye Surgery: Yes (CATARACT) Genitourinary Surgery: Yes (BLADDER LIFT) Joint Replacement: No Neurologic Surgery: No Pacemaker: Yes Thoracic Surgery: No Tonsillectomy: Yes Other Surgery: Yes (skin cancer removal ) Social History Alcohol Use: Yes (socially ) Tobacco Use: No Substance Use: No Allergies-Medications (Allergen,Severity, Reaction): Coded Allergies: bacitracin (Unverified Allergy, Severe, RASH, 04/04/18) CONFIRM? gramicidin D (Unverified Allergy, Severe, RASH, 04/04/18) CONFIRM? neomycin (Unverified Allergy, Severe, RASH, 04/04/18) CONFIRM? polymyxin B (Unverified Allergy, Severe, RASH, 04/04/18) CONFIRM? povidone-iodine (Unverified Allergy, Severe, RASH, 04/04/18) TOPICAL procaine (Unverified Allergy, Severe, RASH, 04/04/18) CONFIRM? Uncoded Allergies: MYCINS (Allergy, Severe, 02/24/16) TOPICAL ANTIBIOTICS (Allergy, Mild, 05/09/06) Reported Meds & Prescriptions Reported Meds & Active Scripts Active Cardizem CD 24 HR (Diltiazem CD 24 HR) 120 Mg Caper 120 Mg PO DAILY 30 Days Reported Warfarin 2.5 Mg Tab 2.5 Mg PO DAILY Amantadine (Amantadine HCl) 100 Mg Tab 100 Mg PO TID Multi For Her (Multiple Vitamins W/ Minerals) 1 Tab Tab 1 Tab PO DAILY Lovastatin 20 Mg Tab 20 Mg PO DAILY Carbidopa-Levodopa ER 25-100 Mg Tab 1 Tab PO TID Pramipexole (Pramipexole Dihydrochloride) 0.125 Mg Tab 1.5 Mg PO TID Physical Exam Narrative GENERAL: Well-nourished, well-developed patient in no apparent distress. SKIN: Focused skin assessment reveals no rash and nodules. Skin is Warm and dry. HEAD: Atraumatic. Normocephalic. EYES: Pupils equal and round. No scleral icterus. No injection or drainage. ENT: No nasal bleeding or discharge. Mucous membranes pink and moist. NECK: Trachea midline. No JVD. CARDIOVASCULAR: Regular rate and rhythm. No murmur appreciated. RESPIRATORY: No accessory muscle use. Clear to auscultation. Breath sounds equal bilaterally. GASTROINTESTINAL: Abdomen soft, non-tender, nondistended. Hepatic and splenic margins not palpable. MUSCULOSKELETAL: No obvious deformities. No clubbing. No cyanosis. No edema. Left leg evaluation reveals a 4 cm x 4 cm square shaped wound on the lateral aspect of the left lower leg. Packing is removed. No purulent drainage seen. The edges of the wound have a blackish eschar on it. The wound is deep down to muscle. NEUROLOGICAL: Awake and alert. No obvious cranial nerve deficits. Motor grossly within normal limits. Normal speech. PSYCHIATRIC: Appropriate mood and affect; insight and judgment normal. Data Data Last Documented VS Vital Signs Date Time Temp Pulse Resp B/P (MAP) Pulse Ox O2 Delivery O2 Flow Rate FiO2 04/04/18 17:36 68 18 141/89 (106) 96 Room Air 04/04/18 15:31 98.0 Orders MDM Medical Decision Making Medical Screen Exam Complete: Yes Emergency Medical Condition: Yes Medical Record Reviewed: Yes Differential Diagnosis Wound necrosis, cellulitis, abscess Narrative Course I have reviewed the patient's electronic medical record. This patient was evaluated by the import/export specialist who felt that they should come to the ER to be admitted to the hospital for further debridement. I placed a right external jugular IV 20-gauge IV site Labs were drawn to send but were canceled and not needed Patient is currently on antibiotics and from a wound in action standpoint she says it is definitely getting much better. Decreased redness and no purulent discharge. No fever. I took a close-up picture after the patient gave permission and send it to our plastic surgeon Dr. Guevara. He reviewed and agrees that he could use plastic surgery evaluation but certainly not hospitalization and certainly not emergently needed. The wound looks fairly clean except for just a bit of black eschar around the rim. He will see the patient is office Saturday or Saturday for detailed evaluation. Patient is agreeable to this. I think it is the right thing. I do not think she needs to sit in the hospital over the weekend for this plastic surgeon evaluation which will now happen Saturday or Saturday. She will continue antibiotics in the meantime. Diagnosis Primary Impression: Chronic wound of extremity Additional Instructions: Follow-up with plastic surgeon on Saturday or Saturday as discussed Call the office of Saturday for a follow-up time Continue antibiotics Med/Other Pt SpecificInfo: Other Disposition: 01 DISCHARGE HOME Condition: Stable Daniel Manrique MD Apr 04, 2018 18:04
== END 2018-04-04 20:08 | disposition home or self-care (01) ==
LOC: NEPE 15:27 → NEDAMB 20:08
DX: S81.802A Unspecified open wound, left lower leg, initial encounter (principal); L08.9 Local infection of the skin and subcutaneous tissue, unspecified; I48.91 Unspecified atrial fibrillation; W19.XXXA Unspecified fall, initial encounter; Z79.01 Long term (current) use of anticoagulants
CPT/HCPCS: 99283

== ENCOUNTER 2018-05-27 17:52 | Inpatient (IN) ==
--- NOTE | 2018-05-27 19:50 | ED ---
HPI General Chief complaint: Weakness Stated complaint: Bilat Leg Pain Time Seen by Provider: 05/27/18 19:44 Source: patient Mode of arrival: EMS Limitations: no limitations History of Present Illness HPI Narrative: Per family witness and Dr. Bender this patient has a history of Parkinson's has progressively worsened and now has very difficult time ambulating and has very frequent falls. Also has a history of pacemaker, as well as atrial fibrillation, for which she is on Cardizem and used to be on Coumadin but that was discontinued because of her frequent falls. Per , she now requires almost full assistance just to make it to the restroom and back. He is not able to assist her full weight. Currently awaiting Dr. pompa for cardiac procedure for her dysrhythmia and last pacemaker interrogation 4 months ago per history. MD Complaint: generalized weakness Onset (ago): week(s) Duration: progressively worsening Location: generalized Migration: none Severity: mild Relieving factors: none Exacerbating factors: none Associated symptoms: denies other symptoms Related Data Home Medications Medication Instructions Recorded Confirmed amantadine HCl 100 mg PO TID 05/16/18 05/27/18 carbidopa-levodopa 1 tab PO TID 05/16/18 05/27/18 clopidogrel 75 mg PO DAILY 05/16/18 05/27/18 diltiazem HCl 120 mg PO DAILY 05/16/18 05/27/18 furosemide 20 mg PO DAILY 05/16/18 05/27/18 lovastatin 20 mg PO DAILY 05/16/18 05/27/18 rpydmigzccrf-Za-qqbi-minerals 1 tab PO DAILY 05/16/18 05/27/18 [Multiple Vitamin, Womens] potassium chloride [Klor-Con 10] 10 meq PO DAILY 05/16/18 05/27/18 pramipexole 1.5 mg PO TID 05/16/18 05/27/18 warfarin 2.5 mg PO DAILY 05/16/18 05/27/18 Allergies Allergy/AdvReac Type Severity Reaction Status Date / Time bacitracin Allergy Severe RASH Verified 05/27/18 19:11 gramicidin D Allergy Severe RASH Verified 05/27/18 19:11 neomycin Allergy Severe RASH Verified 05/27/18 19:11 polymyxin B Allergy Severe RASH Verified 05/27/18 19:11 povidone-iodine Allergy Severe RASH Verified 05/27/18 19:11 procaine Allergy Severe RASH Verified 05/27/18 19:11 MYCINS Allergy Severe Rash Uncoded 05/27/18 19:11 TOPICAL ANTIBIOTICS Allergy Mild Rash Uncoded 05/27/18 19:11 Review of Systems ROS: all other systems reviewed are negative PMFSH History History Provided By: Patient Medical History Medical History Hx of cardiac pacemaker (Acute) History of Parkinson's disease (Acute) History of high cholesterol (Acute) History of atrial fibrillation (Acute) Hematoma (Acute) Skin cancer (Acute) Surgical History Surgical History Hx of bilateral cataract extraction (Acute) Hx of breast implants, bilateral (Acute) Hx of cholecystectomy (Acute) Social History Social History Substance History: No History of Abuse Second Hand Smoke Exposure: No Smoking Status: Never smoker How Often Do You Have a Drink Containing Alcohol: 2 to 3 times a week Recent Travel in [facility] within the Last 8 Weeks: No Recent Out of Country Travel within the Last 8 Weeks: No Immunization History Tetanus Immunization: <5 Years Hx Influenza Vaccine This Season: Yes Exam Narrative Exam Narrative: General: The patient is elderly female in no acute distress. However patient was attempted to stand and before she could even straighten out she was already veering off to the side and required assistance to prevent her from falling. Head and Neck exam: Head is normocephalic atraumatic. Eyes: EOMI, pupils are equal round and reactive to light. Nose: Midline septum with pink mucous membranes Mouth: Dentition unremarkable. Moist mucus membranes. Posterior oropharynx is not erythematous. No tonsillar hypertrophy. Uvula midline. Airway patent. Neck: No palpable lymphadenopathy. No nuchal rigidity. No thyromegaly. Cardiovascular: Regular rate and rhythm without murmurs, gallops, or rubs. No pulse deficit to the extremities. Lungs: Clear to auscultation bilaterally. No wheezes, rhonchi, or rales. Abdomen: Soft, without tenderness to palpation in all 4 quadrants of the abdomen. No guarding, rebound, or rigidity. Negative Admire sign. Extremities: No clubbing, cyanosis, or edema. 2+ pulses in all 4 extremities. Back: No spinous process tenderness to palpation. No costovertebral angle tenderness to palpation. Neurologic Exam: Cranial nerves 2-12 were intact on exam. Strength is 3/5 in all 4 extremities. No sensory deficits noted. No dysdiadochokinesis. Good finger to nose and Heel to morales bilaterally. Skin Exam: No rash noted. Intact skin that is warm and dry. Course Initial Documented Vital Signs Temperature 98.5 F 05/27/18 17:56 Pulse Rate 82 05/27/18 17:56 Respiratory Rate 18 05/27/18 17:56 Blood Pressure 179/78 H 05/27/18 17:56 Pulse Oximetry 100 05/27/18 17:56 Last Documented Vital Signs Temperature 98.4 F 05/28/18 05:41 Pulse Rate 122 H 05/28/18 05:41 Respiratory Rate 18 05/28/18 05:41 Blood Pressure 159/80 H 05/28/18 05:41 Pulse Oximetry 97 05/28/18 05:41 Medical Decision Making Differential Diagnosis Differential Diagnosis: TIA versus STEMI versus intracranial hemorrhage versus UTI versus sepsis Medical Records Medical records reviewed: Yes I reviewed the patient's medical records. Lab Data Lab results reviewed: Yes I reviewed the patient's lab results. Result diagrams: 05/28/18 05:40 05/28/18 05:40 Lab Results 05/27/18 05/27/18 05/27/18 Range/Units 20:56 20:56 20:56 CBC w Diff Auto diff final WBC 9.9 (4.0-11.0) th/mm3 RBC 4.53 (4.00-5.30) mil/mm3 Hgb 13.7 (11.6-15.3) gm/dL Hct 41.7 (35.0-46.0) % MCV 92.0 (80.0-100.0) fL MCH 30.3 (27.0-34.0) pg MCHC 32.9 (32.0-36.0) % RDW 13.4 (11.6-17.2) % Plt Count 214 (150-450) th/mm3 MPV 9.6 (7.0-11.0) fL Neut % (Auto) 76.0 H (16.0-70.0) % Lymph % (Auto) 12.9 (9.0-44.0) % Letcher % (Auto) 8.8 H (0.0-8.0) % Eos % (Auto) 1.8 (0.0-4.0) % Baso % (Auto) 0.5 (0.0-2.0) % Neut # (Auto) 7.5 (1.8-7.7) th/mm3 Lymph # (Auto) 1.3 (1.0-4.8) th/mm3 Letcher # (Auto) 0.9 (0.0-0.9) th/mm3 Eos # (Auto) 0.2 (0.0-0.4) th/mm3 Baso # (Auto) 0.0 (0.0-0.2) th/mm3 WBC Differential . Differential Comment . Sodium 140 (136-145) meq/L Potassium 3.9 (3.5-5.1) meq/L Chloride 104 (98-107) meq/L Carbon Dioxide 28.0 (21.0-32.0) meq/L Anion Gap 8 (5-15) meq/L BUN 14 (7-18) mg/dL Creatinine 0.88 (0.50-1.00) mg/dL Estimated GFR 62 L (>89) mL/min Random Glucose 107 H (74-106) mg/dL Calcium 9.3 (8.5-10.1) mg/dL Magnesium 2.2 (1.5-2.5) mg/dL Total Bilirubin 0.9 (0.2-1.0) mg/dL AST 63 H (15-37) U/L ALT 52 (10-53) U/L Alkaline Phosphatase 142 H (45-117) U/L Total Creatine Kinase 673 H (26-192) U/L CK-MB (CK-2) 7.5 H (0.5-3.6) ng/mL CK-MB (CK-2) % 1.1 (0.0-4.0) % Troponin I Less than 0.02 L (0.02-0.05) ng/mL B-Natriuretic Peptide 139 H (0-100) pg/mL Total Protein 7.6 (6.4-8.2) g/dL Albumin 3.1 L (3.4-5.0) g/dL TSH 2.320 (0.358-3.740) uIU/mL Urine Color (Yellw/Straw) Urine Clarity (Clear) Urine pH (5.0-8.5) Ur Specific Ronan (1.002-1.035) Urine Protein (Neg-Trace) mg/dL Urine Glucose (UA) (Negative) mg/dL Urine Ketones (Negative) mg/dL Urine Occult Blood (Negative) Urine Nitrate (Negative) Urine Bilirubin (Negative) Urine Urobilinogen (Less than 2) mg/dL Ur Leukocyte Esterase (Negative) Urine RBC (0-3) /hpf Urine WBC (0-5) /hpf Micro UA Comment Urine Culture Comments 05/27/18 05/28/18 05/28/18 Range/Units 22:05 05:40 05:40 CBC w Diff Auto diff final WBC 8.0 (4.0-11.0) th/mm3 RBC 4.63 (4.00-5.30) mil/mm3 Hgb 13.9 (11.6-15.3) gm/dL Hct 41.6 (35.0-46.0) % MCV 90.0 (80.0-100.0) fL MCH 30.1 (27.0-34.0) pg MCHC 33.5 (32.0-36.0) % RDW 13.5 (11.6-17.2) % Plt Count 210 (150-450) th/mm3 MPV 9.6 (7.0-11.0) fL Neut % (Auto) 66.6 (16.0-70.0) % Lymph % (Auto) 16.6 (9.0-44.0) % Letcher % (Auto) 9.2 H (0.0-8.0) % Eos % (Auto) 3.6 (0.0-4.0) % Baso % (Auto) 4.0 H (0.0-2.0) % Neut # (Auto) 5.4 (1.8-7.7) th/mm3 Lymph # (Auto) 1.3 (1.0-4.8) th/mm3 Letcher # (Auto) 0.7 (0.0-0.9) th/mm3 Eos # (Auto) 0.3 (0.0-0.4) th/mm3 Baso # (Auto) 0.3 H (0.0-0.2) th/mm3 WBC Differential . Differential Comment . Sodium 142 (136-145) meq/L Potassium 3.8 (3.5-5.1) meq/L Chloride 107 (98-107) meq/L Carbon Dioxide 27.0 (21.0-32.0) meq/L Anion Gap 8 (5-15) meq/L BUN 12 (7-18) mg/dL Creatinine 0.79 (0.50-1.00) mg/dL Estimated GFR 70 L (>89) mL/min Random Glucose 96 (74-106) mg/dL Calcium 8.7 (8.5-10.1) mg/dL Magnesium (1.5-2.5) mg/dL Total Bilirubin 1.0 (0.2-1.0) mg/dL AST 47 H (15-37) U/L ALT 9 L (10-53) U/L Alkaline Phosphatase 122 H (45-117) U/L Total Creatine Kinase 363 H (26-192) U/L CK-MB (CK-2) (0.5-3.6) ng/mL CK-MB (CK-2) % (0.0-4.0) % Troponin I (0.02-0.05) ng/mL B-Natriuretic Peptide (0-100) pg/mL Total Protein 6.6 D (6.4-8.2) g/dL Albumin 2.5 L D (3.4-5.0) g/dL TSH (0.358-3.740) uIU/mL Urine Color Yellow (Yellw/Straw) Urine Clarity Clear (Clear) Urine pH 6.0 (5.0-8.5) Ur Specific Ronan 1.025 (1.002-1.035) Urine Protein Negative (Neg-Trace) mg/dL Urine Glucose (UA) Negative (Negative) mg/dL Urine Ketones Negative (Negative) mg/dL Urine Occult Blood Negative (Negative) Urine Nitrate Negative (Negative) Urine Bilirubin Negative (Negative) Urine Urobilinogen 0.2 (Less than 2) mg/dL Ur Leukocyte Esterase Negative (Negative) Urine RBC 0-3 (0-3) /hpf Urine WBC 0-5 (0-5) /hpf Micro UA Comment Culture not ind Urine Culture Comments Culture not ind Imaging Data Radiologist's impression: Chest X-Ray 05/27/18 19:44 CONCLUSION: No acute cardiopulmonary disease demonstrated. Head CT 05/27/18 19:44 CONCLUSION: 1. No acute intracranial abnormality demonstrated. 2. Chronic white matter changes. 3. 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 . Discharge Plan Discharge Disposition Patient Disposition: 30 Still Patient Discharge Condition Condition: Stable Discharge Details Diagnosis: Brain TIA, Non-sustained ventricular tachycardia Physicians Team ED Provider: Bernardo Worthy Primary Care Provider: Primary Care Julianna Brar Attending Provider: Tru Chakraborty Discharge Interventions Interventions: Vital Signs Last Done: 05/27/18 21:46 Status ED Status: Admitted Patient
--- NOTE | 2018-05-27 20:05 | XR ---
EXAM DATE: 05/27/2018 8:02 PM EDT AGE/SEX: 83 years / Female INDICATIONS: Short of breath. CLINICAL DATA: This is the patient's initial encounter. Patient reports that signs and symptoms have been present for 1 day and indicates a pain score of 2/10. MEDICAL/SURGICAL HISTORY: . Afib. Pacemaker. COMPARISON: [facility], CHEST SINGLE AP, 03/15/2018. . FINDINGS: No infiltrate, effusion or pneumothorax demonstrated. Mild chronic interstitial changes are again not ed. Heart size stable, within normal limits. Cardiac pacer again seen. CONCLUSION: No acute cardiopulmonary disease demonstrated. Electronically signed by: Jovany Nevarez MD 05/27/2018 8:04 PM EDT
--- NOTE | 2018-05-27 20:25 | CT ---
EXAM DATE: 05/27/2018 8:21 PM EDT AGE/SEX: 83 years / Female INDICATIONS: Frequent falls. CLINICAL DATA: This is the patient's initial encounter. Patient reports that signs and symptoms have been present for 1 day and indicates a pain score of 7/10. MEDICAL/SURGICAL HISTORY: Parkinson's disease. None. RADIATION DOSE: 46.93 CTDI (mGy) COMPARISON: [facility], CT HEAD W/O CONTRAST, 05/16/2018. . TECHNIQUE: CT of the head without contrast. Using automated exposure control and adjustment of the mA and/or kV according to patient size, radiation dose was kept as low as reasonably achievable to ob tain optimal diagnostic quality images. DICOM format image data is available electronically for revi ew and comparison. FINDINGS: Cerebrum: The ventricles are normal for age. No evidence of midline shift, mass lesion, hemorrhage or acute infarction. No extraaxial fluid collections are seen. Old right cerebellar and left occipit al infarcts are again noted. Chronic low-attenuation seen in the periventricular white matter. Posterior Fossa: Old right cerebellar infarct. The cerebellum and brainstem are otherwise intact. T he 4th ventricle is midline. The cerebellopontine angle is unremarkable. Extracranial: The visualized portion of the orbits is intact. Skull: The calvaria is intact. No evidence of skull fracture. CONCLUSION: 1. No acute intracranial abnormality demonstrated. 2. Chronic white matter changes. 3. 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 . Electronically signed by: Jovany Nevarez MD 05/27/2018 8:24 PM EDT
[2018-05-27 20:59] LABS: Baso % (Auto) 0.5 % (0.0-2.0); Eos # (Auto) 0.2 th/mm3 (0.0-0.4); Eos % (Auto) 1.8 % (0.0-4.0); Hematocrit 41.7 % (35.0-46.0); Hemoglobin 13.7 gm/dL (11.6-15.3); Lymph # (Auto) 1.3 th/mm3 (1.0-4.8); Lymph % (Auto) 12.9 % (9.0-44.0); Mean Corpuscular HGB Conc 32.9 % (32.0-36.0); Mean Corpuscular Hemoglobin 30.3 pg (27.0-34.0); Mean Platelet Volume 9.6 fL (7.0-11.0); Mono # (Auto) 0.9 th/mm3 (0.0-0.9); Mono % (Auto) 8.8 % (0.0-8.0); Neut # (Auto) 7.5 th/mm3 (1.8-7.7); Platelet Count 214 th/mm3 (150-450); Red Blood Count 4.53 mil/mm3 (4.00-5.30); Red Cell Distribution Width 13.4 % (11.6-17.2); White Blood Count 9.9 th/mm3 (4.0-11.0)
[2018-05-27 21:09] LABS: Chloride 104 meq/L (98-107); Potassium 3.9 meq/L (3.5-5.1); Sodium 140 meq/L (136-145)
[2018-05-27 21:12] LABS: Calcium 9.3 mg/dL (8.5-10.1)
[2018-05-27 21:13] LABS: Albumin 3.1 g/dL (3.4-5.0); Anion Gap 8 meq/L (5-15); Blood Urea Nitrogen 14 mg/dL (7-18); Glucose,Random 107 mg/dL (74-106)
[2018-05-27 21:16] LABS: Alanine Aminotransferase 52 U/L (10-53); Aspartate Aminotransferase 63 U/L (15-37); Glomerular Filtration Rate 62 mL/min (>89)
[2018-05-27 21:18] LABS: Total Protein 7.6 g/dL (6.4-8.2)
[2018-05-27 21:19] LABS: Alkaline Phosphatase 142 U/L (45-117); Creatine Kinase 673 U/L (26-192)
[2018-05-27] MEDS ORDERED: Amiodarone Inj 150 MG in Dextrose 5% in Water Inj 97 ML IV.SIG ONE ×2 (21:28)
[2018-05-27 21:31] LABS: CKMB Percent 1.1 % (0.0-4.0); Creatine Kinase MB 7.5 ng/mL (0.5-3.6)
[2018-05-27 22:15] LABS: Bilirubin,Urine Negative (Negative); Clarity,Urine Clear (Clear); Color,Urine Yellow (Yellw/Straw); Glucose,Urine (UA) Negative (Negative); Leukocyte Esterase,Urine Negative (Negative); Nitrite,Urine Negative (Negative); Specific Gravity,Urine 1.025 (1.002-1.035); Urobilinogen,Urine 0.2 mg/dL (Less than 2)
[2018-05-27 22:20] LABS: WBC,Urine 0-5 /hpf (0-5)
[2018-05-27 22:21] LABS: RBC,Urine 0-3 /hpf (0-3)
[2018-05-27] MEDS ORDERED: Acetaminophen 325 MG Tablet PO PRN (22:22)
[2018-05-27] MEDS ORDERED: Bisacodyl 10 MG Supp RECTAL PRN (22:22)
[2018-05-27 22:56] LABS: Magnesium 2.2 mg/dL (1.5-2.5)
[2018-05-27] MEDS: Sod Chloride 0.9% Inj 1,000 ML IV.CONT SCH (23:03)
[2018-05-27] MEDS: Heparin - SQ 10,000 UNITS/ML Vial SQ SCH (23:06)
[2018-05-27] MEDS: Amantadine 100 MG Capsule PO SCH (23:13)
[2018-05-28 05:54] LABS: Baso # (Auto) 0.3 th/mm3 (0.0-0.2); Eos # (Auto) 0.3 th/mm3 (0.0-0.4); Eos % (Auto) 3.6 % (0.0-4.0); Hematocrit 41.6 % (35.0-46.0); Hemoglobin 13.9 gm/dL (11.6-15.3); Lymph # (Auto) 1.3 th/mm3 (1.0-4.8); Lymph % (Auto) 16.6 % (9.0-44.0); Mean Corpuscular HGB Conc 33.5 % (32.0-36.0); Mean Corpuscular Hemoglobin 30.1 pg (27.0-34.0); Mean Platelet Volume 9.6 fL (7.0-11.0); Mono # (Auto) 0.7 th/mm3 (0.0-0.9); Mono % (Auto) 9.2 % (0.0-8.0); Neut # (Auto) 5.4 th/mm3 (1.8-7.7); Neut % (Auto) 66.6 % (16.0-70.0); Platelet Count 210 th/mm3 (150-450); Red Blood Count 4.63 mil/mm3 (4.00-5.30); Red Cell Distribution Width 13.5 % (11.6-17.2)
[2018-05-28 05:57] LABS: Chloride 107 meq/L (98-107); Potassium 3.8 meq/L (3.5-5.1); Sodium 142 meq/L (136-145)
[2018-05-28 06:00] LABS: Calcium 8.7 mg/dL (8.5-10.1)
[2018-05-28 06:12] LABS: Alanine Aminotransferase 9 U/L (10-53); Albumin 2.5 g/dL (3.4-5.0); Alkaline Phosphatase 122 U/L (45-117); Anion Gap 8 meq/L (5-15); Aspartate Aminotransferase 47 U/L (15-37); Blood Urea Nitrogen 12 mg/dL (7-18); Creatine Kinase 363 U/L (26-192); Glomerular Filtration Rate 70 mL/min (>89); Glucose,Random 96 mg/dL (74-106); Total Protein 6.6 g/dL (6.4-8.2)
[2018-05-28 06:49] LABS: CKMB Percent 1.1 % (0.0-4.0); Creatine Kinase MB 4.1 ng/mL (0.5-3.6)
[2018-05-28] MEDS: Heparin - SQ 10,000 UNITS/ML Vial SQ SCH ×2 (07:09→14:19)
[2018-05-28] MEDS ORDERED: Furosemide 20 MG Tablet PO SCH (09:00)
[2018-05-28] MEDS ORDERED: dilTIAZem CD 120 MG Capsule PO SCH (09:00)
[2018-05-28] MEDS: Multivitamin/Minerals Therapeutic Tablet PO SCH (09:14)
[2018-05-28] MEDS: Senna/Docusate Sodium 8.6/50 MG Tablet PO SCH ×2 (09:28→20:06)
[2018-05-28] MEDS ORDERED: dilTIAZem Inj 125 MG in Sodium Chlor 0.9% Inj 100 ML IV.CONT PRN (10:12)
--- NOTE | 2018-05-28 10:47 | P.HP ---
History of Present Illness Primary Care Physician: No Primary Care Physician Chief Complaint: Frequent falls History of Present Illness: This is an 83-year-old female patient with a known medical history of atrial fibrillation on Coumadin at home, pacemaker, hyperlipidemia and Parkinson's disease who presented to the ED with complaints of progressively worsening weakness as well as worsening ability to ambulate with frequent falls at home. Patient does live at home with her . She does admit that she is fallen 3 times per day for the past few months. She does admit that when she falls she feels like her legs give out from under her. She does intermittently complain of dizziness, lightheadedness with these falls. She has been following with home health care PT and has been suggested to use a walker although patient states that she has not been using this very often. Patient does have a history of Parkinson's disease, states that this has progressively gotten worse over the past few months. She follows with Dr. Brantley, last seen 1-1/2 months ago with no changes to her medicines. She also has a history of atrial fibrillation, it was questionable whether patient was on anticoagulation at home, it is clear that patient does take Coumadin at home and follows with Dr. Parham in the outpatient setting, was last seen 1 week ago with no changes to her medications. There was question whether an ablation was scheduled for the patient although this has been deferred for a later time. Patient denies any recent illness including fever, chills, cough, shortness of breath, abdominal pain, nausea, vomiting, diarrhea or dysuria. She does admit that she has been taking her medicines appropriately. She presented with elevated CPK at 673, UA was negative as well as CBC was negative. Head CT did not show any acute abnormalities as well as chest x-ray was negative. - Diagnosis (1) Generalized weakness (2) Frequent falls (3) Atrial fibrillation with rapid ventricular response (4) Anticoagulated on Coumadin Inpatient Certification: I certify that the inpatient services were ordered in accordance with Medicare regulations governing the order. This includes certification that hospital inpatient services are reasonable and necessary and in the case of services not specified as inpatient-only under 42 CFR 419.22(n), that they are appropriately provided as inpatient services in accordance to with the 2-midnight benchmark under 43 CFR 412.3(e) Estimated Total Length of Stay (Days): 3 Plans for Post Hospital Care: Not yet determined Review of Systems All other systems reviewed negative except as stated in HPI [facility] - History History Provided By: Patient - Medical History Medical History: Medical History (Last Reviewed 05/28/18 @ 08:37 by Elias Worley) Hx of cardiac pacemaker (Acute) History of Parkinson's disease (Acute) History of high cholesterol (Acute) History of atrial fibrillation (Acute) Hematoma Skin cancer - Surgical History Surgical History: Surgical History (Last Reviewed 05/28/18 @ 08:37 by Elias Worley) Hx of bilateral cataract extraction (Acute) Hx of breast implants, bilateral (Acute) Hx of cholecystectomy (Acute) - Family History Family History: Family History (Last Updated 05/28/18 @ 14:47 by Amparo Coulter) Other No pertinent family history - Tobacco History Second Hand Smoke Exposure: No Tobacco Use In Past 30 Days: No Smoking Status: Never smoker - Alcohol History How Often Do You Have a Drink Containing Alcohol: 2 to 3 times a week - Substance Use History Substance History: No History of Abuse - Travel History Recent Travel in the [place] Within the Last 8 Weeks: No Recent Travel Out of the Country Within the Last 8 Weeks: No - Immunization History Tetanus Immunization: <5 Years Hx Influenza Vaccine This Season: Yes Medications and Allergies Active Medications: Active Medications Acetaminophen (Tylenol) 650 mg PO Q4H PRN PRN Reason: Temp > 100.4/ARITA Albuterol (Duoneb Neb (Prn)) 1 ampul NEB Q2HR NEB PRN PRN Reason: WHEEZING Amantadine HCl (Symmetrel) 100 mg PO TID [facility] Last Admin: 05/27/18 23:13 Dose: 100 mg Bisacodyl (Dulcolax Supp) 10 mg RECTAL DAILY PRN PRN Reason: SEVERE CONSITIPATION Carbidopa/Levodopa (Sinemet 25/100 Mg) 1 tab PO TID [facility] Last Admin: 05/28/18 09:14 Dose: 1 tab Clopidogrel Bisulfate (Plavix) 75 mg PO DAILY [facility] Last Admin: 05/28/18 09:28 Dose: 75 mg Diltiazem HCl (Cardizem Cd 24hr) 120 mg PO DAILY [facility] Last Admin: 05/28/18 09:14 Dose: 120 mg Diltiazem HCl (Cardizem Inj) 20 mg IV.PUSH ONCE ONE Stop: 05/28/18 10:13 Furosemide (Lasix) 20 mg PO DAILY [facility] Last Admin: 05/28/18 09:28 Dose: 20 mg Heparin Sodium (Porcine) (Heparin Inj) 5,000 units SQ Q8H [facility] Last Admin: 05/28/18 07:09 Dose: 5,000 units Sodium Chloride (Ns Inj) 1,000 mls @ 60 mls/hr IV.CONT .[id number] [facility] Last Infusion: 05/28/18 07:48 Dose: 60 mls/hr Diltiazem HCl 125 mg/ Sodium (Chloride) 125 mls @ 5 mls/hr IV.CONT TITRATE PRN ; Protocol PRN Reason: Per Protocol Lactulose (Lactulose Liq) 30 ml PO DAILY PRN PRN Reason: SEVERE CONSITIPATION Miscellaneous (Pill Splitter) 0 each OTHER UNSCH [facility] Last Admin: 05/27/18 23:17 Dose: 1.5 each Multivitamins/Minerals (Theragran-M) 1 tab PO DAILY [facility] Last Admin: 05/28/18 09:14 Dose: 1 tab Potassium Chloride (Klor-Con 10) 10 meq PO DAILY [facility] Last Admin: 05/28/18 09:25 Dose: 10 meq Pramipexole Dihydrochloride (Mirapex) 1.5 mg PO TID [facility] Last Admin: 05/27/18 23:20 Dose: 1.5 mg Pravastatin Sodium (Pravachol) 20 mg PO DAILY [facility] Last Admin: 05/28/18 09:14 Dose: 20 mg Senna/Docusate Sodium (Ambar-Colace) 1 tab PO BID [facility] Last Admin: 05/28/18 09:28 Dose: 1 tab Sennosides (Senokot) 17.2 mg PO Q12H PRN PRN Reason: Moderate Constipation Sodium Chloride (Ns Flush) 2 ml IV.FLUSH PRN PRN PRN Reason: FLUSH AFTER USING IV ACCESS Allergies Allergy/AdvReac Type Severity Reaction Status Date / Time bacitracin Allergy Severe RASH Verified 05/27/18 19:11 gramicidin D Allergy Severe RASH Verified 05/27/18 19:11 neomycin Allergy Severe RASH Verified 05/27/18 19:11 polymyxin B Allergy Severe RASH Verified 05/27/18 19:11 povidone-iodine Allergy Severe RASH Verified 05/27/18 19:11 procaine Allergy Severe RASH Verified 05/27/18 19:11 MYCINS Allergy Severe Rash Uncoded 05/27/18 19:11 TOPICAL ANTIBIOTICS Allergy Mild Rash Uncoded 05/27/18 19:11 Home Medications Medication Instructions Recorded Confirmed Type amantadine HCl 100 mg PO TID 05/16/18 05/27/18 History carbidopa-levodopa 1 tab PO TID 05/16/18 05/27/18 History clopidogrel 75 mg PO DAILY 05/16/18 05/27/18 History diltiazem HCl 120 mg PO DAILY 05/16/18 05/27/18 History furosemide 20 mg PO DAILY 05/16/18 05/27/18 History lovastatin 20 mg PO DAILY 05/16/18 05/27/18 History [id number]-Nk-bdtw-minerals 1 tab PO DAILY 05/16/18 05/27/18 History [Multiple Vitamin, Womens] potassium chloride [Klor-Con 10] 10 meq PO DAILY 05/16/18 05/27/18 History pramipexole 1.5 mg PO TID 05/16/18 05/27/18 History Exam Vital signs: Vital Signs 05/27/18 17:56 05/27/18 19:36 05/27/18 20:20 Temperature 98.5 F Pulse Rate 82 84 111 H Respiratory Rate 18 18 Blood Pressure 179/78 H 187/87 H Pulse Oximetry 100 05/27/18 20:24 05/27/18 20:45 05/27/18 21:46 Temperature 98.2 F Pulse Rate 108 H 61 Respiratory Rate 20 18 Blood Pressure 162/111 H 202/107 H Pulse Oximetry 98 98 99 05/27/18 23:01 05/28/18 01:03 05/28/18 03:41 Temperature Pulse Rate 110 H 113 H 108 H Respiratory Rate 18 18 Blood Pressure 183/96 H 159/82 H 177/92 H Pulse Oximetry 97 97 98 05/28/18 03:43 05/28/18 05:41 05/28/18 07:04 Temperature 98.4 F Pulse Rate 108 H 122 H 112 H Respiratory Rate 18 20 Blood Pressure 159/80 H 166/77 H Pulse Oximetry 97 05/28/18 08:00 Temperature 97.7 F Pulse Rate 115 H Respiratory Rate 23 Blood Pressure 118/92 H Pulse Oximetry 98 Intake & Output 05/27/18 05/28/18 05/28/18 18:59 06:59 18:59 Intake Total 100 / 100 670 / 670 Output Total 400 / 400 Balance -300 / -300 670 / 670 Weight 54 kg Intake: IV 100 / 100 550 / 550 NS Inj 1,000 ML @ 60 mls/hr IV. 550 / 550 CONT .[id number] LEX Rx#: [id number] Cordarone Inj 150 MG In D5W Inj 100 / 100 97 ML @ 600 mls/hr IV.SIG ONCE ONE Rx#:[id number] Oral 120 / 120 Output: Urine 400 / 400 Other: # Voids 1 # Incontinent Voids 1 Narrative: GENERAL: Well-developed, frail thin elderly female patient in [facility]. SKIN: Warm and dry. Multiple scattered abrasions in bilateral upper and lower extremities. HEAD: Normocephalic. Atraumatic. EYES: Pupils equal and round. No scleral icterus. No injection or drainage. ENT: No nasal bleeding or discharge. Mucous membranes pink and moist. NECK: Supple. Trachea midline. CARDIOVASCULAR: Regularly irregular rhythm. RESPIRATORY: No accessory muscle use. Clear to auscultation. Breath sounds equal bilaterally. GASTROINTESTINAL: Abdomen soft, non-tender, nondistended. Normoactive bowel sounds x4. MUSCULOSKELETAL: No obvious deformities. Extremities without clubbing, cyanosis , or edema. NEUROLOGICAL: Awake and alert. No obvious cranial nerve deficits. Motor grossly within normal limits. 5/5 muscle strength in bilateral upper and lower extremities. Normal speech. PSYCHIATRIC: Appropriate mood and affect; insight and judgment normal. Results - Labs CBC & Chem 7: 05/28/18 05:40 05/28/18 05:40 Labs: Laboratory Results - last 24 hr 05/27/18 05/27/18 05/27/18 20:56 20:56 20:56 CBC w Diff Auto diff final WBC 9.9 RBC 4.53 Hgb 13.7 Hct 41.7 MCV 92.0 MCH 30.3 MCHC 32.9 RDW 13.4 Plt Count 214 MPV 9.6 Neut % (Auto) 76.0 H Lymph % (Auto) 12.9 [place] % (Auto) 8.8 H Eos % (Auto) 1.8 Baso % (Auto) 0.5 Neut # (Auto) 7.5 Lymph # (Auto) 1.3 [place] # (Auto) 0.9 Eos # (Auto) 0.2 Baso # (Auto) 0.0 WBC Differential . Differential Comment . Sodium 140 Potassium 3.9 Chloride 104 Carbon Dioxide 28.0 Anion Gap 8 BUN 14 Creatinine 0.88 Estimated GFR 62 L Random Glucose 107 H Calcium 9.3 Magnesium 2.2 Total Bilirubin 0.9 AST 63 H ALT 52 Alkaline Phosphatase 142 H Total Creatine Kinase 673 H CK-MB (CK-2) 7.5 H CK-MB (CK-2) % 1.1 Troponin I Less than 0.02 L B-Natriuretic Peptide 139 H Total Protein 7.6 Albumin 3.1 L TSH 2.320 Urine Color Urine Clarity Urine pH Ur Specific Council Urine Protein Urine Glucose (UA) Urine Ketones Urine Occult Blood Urine Nitrate Urine Bilirubin Urine Urobilinogen Ur Leukocyte Esterase Urine RBC Urine WBC Micro UA Comment Urine Culture Comments 05/27/18 05/28/18 05/28/18 22:05 05:40 05:40 CBC w Diff Auto diff final WBC 8.0 RBC 4.63 Hgb 13.9 Hct 41.6 MCV 90.0 MCH 30.1 MCHC 33.5 RDW 13.5 Plt Count 210 MPV 9.6 Neut % (Auto) 66.6 Lymph % (Auto) 16.6 [place] % (Auto) 9.2 H Eos % (Auto) 3.6 Baso % (Auto) 4.0 H Neut # (Auto) 5.4 Lymph # (Auto) 1.3 [place] # (Auto) 0.7 Eos # (Auto) 0.3 Baso # (Auto) 0.3 H WBC Differential . Differential Comment . Sodium 142 Potassium 3.8 Chloride 107 Carbon Dioxide 27.0 Anion Gap 8 BUN 12 Creatinine 0.79 Estimated GFR 70 L Random Glucose 96 Calcium 8.7 Magnesium Total Bilirubin 1.0 AST 47 H ALT 9 L Alkaline Phosphatase 122 H Total Creatine Kinase 363 H CK-MB (CK-2) 4.1 H CK-MB (CK-2) % 1.1 Troponin I B-Natriuretic Peptide Total Protein 6.6 D Albumin 2.5 L D TSH Urine Color Yellow Urine Clarity Clear Urine pH 6.0 Ur Specific Council 1.025 Urine Protein Negative Urine Glucose (UA) Negative Urine Ketones Negative Urine Occult Blood Negative Urine Nitrate Negative Urine Bilirubin Negative Urine Urobilinogen 0.2 Ur Leukocyte Esterase Negative Urine RBC 0-3 Urine WBC 0-5 Micro UA Comment Culture not ind Urine Culture Comments Culture not ind - Imaging Impressions Chest X-Ray 05/27/18 19:44 CONCLUSION: No acute cardiopulmonary disease demonstrated. Head CT 05/27/18 19:44 CONCLUSION: 1. No acute intracranial abnormality demonstrated. 2. Chronic white matter changes. 3. 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 . Caprini VTE Risk Assessment Caprini VTE Risk Assessment: Moderate/High Risk (score >= 2) Caprini Risk Assessment Model: Point Value = 1 Point Value = 2 Point Value = 3 Point Value = 5 Age 41-60 Minor surgery BMI > 25 kg/m2 Swollen legs Varicose veins or History of unexplained or recurrent spontaneous Oral contraceptives or hormone replacement Sepsis (< 1 month) Serious lung disease, including pneumonia (< 1 month) Abnormal pulmonary function Acute myocardial infarction Congestive heart failure (< 1 month) History of inflammatory bowel disease Medical patient at bed rest Age 61-74 Arthroscopic surgery Major open surgery (> 45 min) Laparoscopic surgery (> 45 min) Malignancy Confined to bed (> 72 hours) Immobilizing plaster cast Central venous access Age >= 75 History of VTE Family history of VTE Factor V Leiden Prothrombin [id number] Lupus anticoagulant Anticardiolipin antibodies Elevated serum homocysteine Heparin-induced thrombocytopenia Other congenital or acquired thrombophilia Stroke (< 1 month) Elective arthroplasty Hip, pelvis, or leg fracture Acute spinal cord injury (< 1 month) Prophylaxis Regimen: Total Risk Factor Score Risk Level Prophylaxis Regimen 0-1 Low Early ambulation 2 Moderate Order ONE of the following: *Sequential Compression Device (SCD) *Heparin 5000 units SQ BID 3-4 Higher Order ONE of the following medications: *Heparin 5000 units SQ TID *Enoxaparin/Lovenox 40 mg SQ daily (WT < 150 kg, CrCl > 30 mL/min) *Enoxaparin/Lovenox 30 mg SQ daily (WT < 150 kg, CrCl > 10-29 mL/min) *Enoxaparin/Lovenox 30 mg SQ BID (WT < 150 kg, CrCl > 30 mL/min) AND/OR *Sequential Compression Device (SCD) 5 or more Highest Order ONE of the following medications: *Heparin 5000 units SQ TID (Preferred with Epidurals) *Enoxaparin/Lovenox 40 mg SQ daily (WT < 150 kg, CrCl > 30 mL/min) *Enoxaparin/Lovenox 30 mg SQ daily (WT < 150 kg, CrCl > 10-29 mL/min) *Enoxaparin/Lovenox 30 mg SQ BID (WT < 150 kg, CrCl > 30 mL/min) AND *Sequential Compression Device (SCD) Assessment and Plan - Assessment (1) Generalized weakness Code(s): R53.1 - Weakness Status: Acute (2) Frequent falls Code(s): R29.6 - Repeated falls Status: Acute (3) Atrial fibrillation with rapid ventricular response Code(s): I48.91 - Unspecified atrial fibrillation Status: Acute (4) Anticoagulated on Coumadin Code(s): Z51.81 - Encounter for therapeutic drug level monitoring; Z79.01 - longterm (current) use of anticoagulants Status: Acute - Plan This is an 83-year-old female patient with a known medical history of atrial fibrillation on Coumadin at home, pacemaker, hyperlipidemia and Parkinson's disease who presented to the ED with complaints of progressively worsening weakness as well as worsening ability to ambulate with frequent falls at home. Generalized weakness Frequent falls at home History of Parkinson's disease -Continue home medications as ordered. -Supportive care. -Awaiting PT eval. Atrial fibrillation with RVR History of atrial fibrillation on Coumadin History of pacemaker placement -Cardiac telemetry with heart rate in the 130s this morning. EKG ordered and reviewed showing atrial fibrillation with RVR. -Patient was given a Cardizem bolus 1. As well as started on a Cardizem drip. -Patient follows with Dr. Parham, consulted and appreciate input. Added digoxin to regimen. Will defer ablation for now secondary to worsening Parkinson's disease. -Restarted on Coumadin. Monitor INR in a.m. Pharmacy to assist. May need Lovenox bridge. -Will continue home Plavix. -Continue to monitor. Rhabdomyolysis, mild -CPK 693 on presentation. Is trending down. We will continue IV fluids. Recheck in a.m. Hyperlipidemia: Will continue home medications. DVT prophylaxis: SCDs. Coumadin.
[2018-05-28] MEDS: Amantadine 100 MG Capsule PO SCH ×3 (11:06→18:29)
--- NOTE | 2018-05-28 13:06 | P.CONCA ---
History of Present Illness Service: Cardiology Consult date: 05/28/18 Reason for Consult: Afib RVR Primary Care Provider: No Primary Care Physician Family Provider: Paola Bender MD History of Present Illness: Pleasant 83 year old female well known to our practice. With a significant past cardiac history of Afib, stroke, SSS with [employer]tr[employer] pacemaker in place, syncope , PVD, frequent falls, and Parkinson's disease. She reports yesterday her heart started racing and she became very shaky, she was found to be in Afib RVR. Ablation has been discussed in the past, however it was decided to hold off due to patients worsening parkinsons disease with more frequent falls. Spoke with patients , he reports that patient has been on Coumadin at home, Dr. Bender was monitoring INRs. Will resume Coumadin and check INR. Review of Systems Constitutional: Reports weakness Cardiovascular: Reports irregular heart rhythm Musculoskeletal: Reports muscle weakness Neurologic: Reports frequent falls, Reports lack of coordination, Reports localized weakness Comments: weakness in legs PMFSH - History History Provided By: Patient - Medical History Medical History: Medical History (Last Reviewed 05/28/18 @ 08:37 by Elias Worley) Hx of cardiac pacemaker (Acute) History of Parkinson's disease (Acute) History of high cholesterol (Acute) History of atrial fibrillation (Acute) Hematoma Skin cancer - Surgical History Surgical History: Surgical History (Last Reviewed 05/28/18 @ 08:37 by Elias Worley) Hx of bilateral cataract extraction (Acute) Hx of breast implants, bilateral (Acute) Hx of cholecystectomy (Acute) - Tobacco History Second Hand Smoke Exposure: No Tobacco Use In Past 30 Days: No Smoking Status: Never smoker - Alcohol History How Often Do You Have a Drink Containing Alcohol: 2 to 3 times a week - Substance Use History Substance History: No History of Abuse - Travel History Recent Travel in the [place] Within the Last 8 Weeks: No Recent Travel Out of the Country Within the Last 8 Weeks: No - Immunization History Tetanus Immunization: <5 Years Hx Influenza Vaccine This Season: Yes Medications and Allergies Active Medications: Active Medications Acetaminophen (Tylenol) 650 mg PO Q4H PRN PRN Reason: Temp > 100.4/ARITA Albuterol (Duoneb Neb (Prn)) 1 ampul NEB Q2HR NEB PRN PRN Reason: WHEEZING Amantadine HCl (Symmetrel) 100 mg PO TID [facility] Last Admin: 05/28/18 11:06 Dose: 100 mg Bisacodyl (Dulcolax Supp) 10 mg RECTAL DAILY PRN PRN Reason: SEVERE CONSITIPATION Carbidopa/Levodopa (Sinemet 25/100 Mg) 1 tab PO TID [facility] Last Admin: 05/28/18 09:14 Dose: 1 tab Clopidogrel Bisulfate (Plavix) 75 mg PO DAILY [facility] Last Admin: 05/28/18 09:28 Dose: 75 mg Digoxin (Lanoxin) 125 mcg PO DAILY [facility] Diltiazem HCl (Cardizem Cd 24hr) 120 mg PO DAILY [facility] Last Admin: 05/28/18 09:14 Dose: 120 mg Furosemide (Lasix) 20 mg PO DAILY [facility] Last Admin: 05/28/18 09:28 Dose: 20 mg Heparin Sodium (Porcine) (Heparin Inj) 5,000 units SQ Q8H [facility] Last Admin: 05/28/18 07:09 Dose: 5,000 units Sodium Chloride (Ns Inj) 1,000 mls @ 60 mls/hr IV.CONT .[id number] [facility] Last Infusion: 05/28/18 07:48 Dose: 60 mls/hr Diltiazem HCl 125 mg/ Sodium (Chloride) 125 mls @ 5 mls/hr IV.CONT TITRATE PRN ; Protocol PRN Reason: Per Protocol Last Titration: 05/28/18 12:04 Dose: 10 mg/hr, 10 mls/hr Lactulose (Lactulose Liq) 30 ml PO DAILY PRN PRN Reason: SEVERE CONSITIPATION Miscellaneous (Pill Splitter) 0 each OTHER UNSCH [facility] Last Admin: 05/27/18 23:17 Dose: 1.5 each Multivitamins/Minerals (Theragran-M) 1 tab PO DAILY [facility] Last Admin: 05/28/18 09:14 Dose: 1 tab Potassium Chloride (Klor-Con 10) 10 meq PO DAILY [facility] Last Admin: 05/28/18 09:25 Dose: 10 meq Pramipexole Dihydrochloride (Mirapex) 1.5 mg PO TID [facility] Last Admin: 05/28/18 11:07 Dose: 1.5 mg Pravastatin Sodium (Pravachol) 20 mg PO DAILY [facility] Last Admin: 05/28/18 09:14 Dose: 20 mg Senna/Docusate Sodium (Ambar-Colace) 1 tab PO BID [facility] Last Admin: 05/28/18 09:28 Dose: 1 tab Sennosides (Senokot) 17.2 mg PO Q12H PRN PRN Reason: Moderate Constipation Sodium Chloride (Ns Flush) 2 ml IV.FLUSH PRN PRN PRN Reason: FLUSH AFTER USING IV ACCESS Allergies Allergy/AdvReac Type Severity Reaction Status Date / Time bacitracin Allergy Severe RASH Verified 05/27/18 19:11 gramicidin D Allergy Severe RASH Verified 05/27/18 19:11 neomycin Allergy Severe RASH Verified 05/27/18 19:11 polymyxin B Allergy Severe RASH Verified 05/27/18 19:11 povidone-iodine Allergy Severe RASH Verified 05/27/18 19:11 procaine Allergy Severe RASH Verified 05/27/18 19:11 MYCINS Allergy Severe Rash Uncoded 05/27/18 19:11 TOPICAL ANTIBIOTICS Allergy Mild Rash Uncoded 05/27/18 19:11 Home Medications Medication Instructions Recorded Confirmed Type amantadine HCl 100 mg PO TID 05/16/18 05/27/18 History carbidopa-levodopa 1 tab PO TID 05/16/18 05/27/18 History clopidogrel 75 mg PO DAILY 05/16/18 05/27/18 History diltiazem HCl 120 mg PO DAILY 05/16/18 05/27/18 History furosemide 20 mg PO DAILY 05/16/18 05/27/18 History lovastatin 20 mg PO DAILY 05/16/18 05/27/18 History nrxjjsisrsbp-Kt-nszz-minerals 1 tab PO DAILY 05/16/18 05/27/18 History [Multiple Vitamin, Womens] potassium chloride [Klor-Con 10] 10 meq PO DAILY 05/16/18 05/27/18 History pramipexole 1.5 mg PO TID 05/16/18 05/27/18 History Exam Vital signs: Vital Signs 05/27/18 17:56 05/27/18 19:36 05/27/18 20:20 Temperature 98.5 F Pulse Rate 82 84 111 H Respiratory Rate 18 18 Blood Pressure 179/78 H 187/87 H Pulse Oximetry 100 05/27/18 20:24 05/27/18 20:45 05/27/18 21:46 Temperature 98.2 F Pulse Rate 108 H 61 Respiratory Rate 20 18 Blood Pressure 162/111 H 202/107 H Pulse Oximetry 98 98 99 05/27/18 23:01 05/28/18 01:03 05/28/18 03:41 Temperature Pulse Rate 110 H 113 H 108 H Respiratory Rate 18 18 Blood Pressure 183/96 H 159/82 H 177/92 H Pulse Oximetry 97 97 98 05/28/18 03:43 05/28/18 05:41 05/28/18 07:04 Temperature 98.4 F Pulse Rate 108 H 122 H 112 H Respiratory Rate 18 20 Blood Pressure 159/80 H 166/77 H Pulse Oximetry 97 05/28/18 08:00 05/28/18 09:00 05/28/18 12:00 Temperature 97.7 F 97.4 F L Pulse Rate 115 H 124 H Respiratory Rate 23 Blood Pressure 118/92 H Pulse Oximetry 98 05/28/18 12:48 Temperature Pulse Rate 101 H Respiratory Rate Blood Pressure 99/60 L Pulse Oximetry Intake & Output 05/27/18 05/28/18 05/28/18 18:59 06:59 18:59 Intake Total 100 / 100 670 / 670 Output Total 400 / 400 300 / 300 Balance -300 / -300 370 / 370 Weight 54 kg Intake: IV 100 / 100 550 / 550 NS Inj 1,000 ML @ 60 mls/hr IV. 550 / 550 CONT .[id number] [facility] Rx#: [id number] Cordarone Inj 150 MG In D5W Inj 100 / 100 97 ML @ 600 mls/hr IV.SIG ONCE ONE Rx#:[id number] Oral 120 / 120 Output: Urine 400 / 400 300 / 300 Other: # Voids 1 # Incontinent Voids 1 - Constitutional no acute distress - Routine HEENT Exam Head: Present: normocephalic, atraumatic Eye: Present: normal accommodation ENT: Present: mucous membranes moist - Routine Neck Exam Present: supple - Routine Respiratory Exam Present: CTA bilaterally - Routine Cardiovascular Exam Present: irregularly irregular - Routine Abdominal Exam Present: soft - Routine Extremities Exam Comments: left lower extremity round sore with drainage - Routine Skin Exam Present: cracked - Routine Neurological Exam Present: alert, oriented X3, tremors Results 05/28/18 05:40 05/28/18 05:40 Cardiac Enzymes 05/27/18 05/27/18 05/28/18 Range/Units 20:56 20:56 05:40 AST 63 H 47 H (15-37) U/L CK-MB (CK-2) 7.5 H 4.1 H (0.5-3.6) ng/mL Troponin I Less than 0.02 L (0.02-0.05) ng/mL B-Natriuretic Peptide 139 H (0-100) pg/mL Coagulation 05/27/18 Range/Units 20:56 B-Natriuretic Peptide 139 H (0-100) pg/mL CBC 05/27/18 05/28/18 Range/Units 20:56 05:40 WBC 9.9 8.0 (4.0-11.0) th/mm3 RBC 4.53 4.63 (4.00-5.30) mil/mm3 Hgb 13.7 13.9 (11.6-15.3) gm/dL Hct 41.7 41.6 (35.0-46.0) % Plt Count 214 210 (150-450) th/mm3 Neut # (Auto) 7.5 5.4 (1.8-7.7) th/mm3 Lymph # (Auto) 1.3 1.3 (1.0-4.8) th/mm3 [place] # (Auto) 0.9 0.7 (0.0-0.9) th/mm3 Eos # (Auto) 0.2 0.3 (0.0-0.4) th/mm3 Baso # (Auto) 0.0 0.3 H (0.0-0.2) th/mm3 Comprehensive Metabolic Panel 05/27/18 05/28/18 Range/Units 20:56 05:40 Sodium 140 142 (136-145) meq/L Potassium 3.9 3.8 (3.5-5.1) meq/L Chloride 104 107 (98-107) meq/L Carbon Dioxide 28.0 27.0 (21.0-32.0) meq/L BUN 14 12 (7-18) mg/dL Creatinine 0.88 0.79 (0.50-1.00) mg/dL Calcium 9.3 8.7 (8.5-10.1) mg/dL AST 63 H 47 H (15-37) U/L ALT 52 9 L (10-53) U/L Alkaline Phosphatase 142 H 122 H (45-117) U/L Total Protein 7.6 6.6 D (6.4-8.2) g/dL Albumin 3.1 L 2.5 L D (3.4-5.0) g/dL Intake and Output 05/27/18 05/28/18 05/28/18 22:59 06:59 14:59 Intake Total 100 / 100 670 / 670 Output Total 400 / 400 300 / 300 Balance 100 / 100 -400 / -400 370 / 370 Intake: IV 100 / 100 550 / 550 NS Inj 1,000 ML @ 60 mls/hr IV. 550 / 550 CONT .[id number] [facility] Rx#: [id number] Cordarone Inj 150 MG In D5W Inj 100 / 100 97 ML @ 600 mls/hr IV.SIG ONCE ONE Rx#:[id number] Oral 120 / 120 Output: Urine 400 / 400 300 / 300 Other: # Voids 1 # Incontinent Voids 1 Weight 54 kg Assessment and Plan - Plan Atrial fibrillation with RVR History of stroke Parkinson's disease SSS PVD- Non healing Wound -Will check INR today and plan to resume Coumadin and DC heparin tomorrow?. History of stroke, also on plavix. reports pt was not on plavix at home. Will DC once INR is therapeutic. Currently on Cardizem drip. Will add digoxin 125mcg daily for rate control. -Follows with Dr. Akhtar. -Frequent falls and tremors related to Parkinson. Will order PT to eval and treat. -Medtronic pacemaker in place. -Follows with Dr. Saxena. Wound care consult placed. Once stable to DC home, patient will need home health and PT. The patient was seen and evaluated by Dr. Parham who completed face to face encounter and physical exam and participated in care, management and decision making. Discussed Condition With: Nurse and spoke with by phone
[2018-05-28] MEDS: Digoxin 125 MCG Tablet PO SCH (13:43)
[2018-05-28 13:46] LABS: INR 1.1 Ratio; Prothrombin Time 11.4 sec (9.8-11.6)
--- NOTE | 2018-05-28 14:43 | P.DCO ---
- Physical Therapy Order: Evaluate and treat, Improve ambulation, Strength and gait training - Home Health Nursing Order: Medical education, Signs/symptoms of disease process, Medication education-adverse effect, Nursing assessment with vital signs - Certification I have seen patient Najma Yarbrough on 05/28/18. My clinical findings support the need for the requested home health care services because: Deconditioned with increased weakness I certify that my clinical findings support that this patient is homebound because: Unsteady gait/balance
[2018-05-28] MEDS ORDERED: Warfarin Consult Pharmacy 1 EACH OTHER SCH (15:00)
--- NOTE | 2018-05-28 15:27 | ECG ---
Date Performed: 05/28/2018 Time Performed: 10:11:08 PTAGE: 83 years EKG: ATRIAL FIBRILLATION WITH RAPID VENTRICULAR RESPONSE ST DEVIATION AND MODERATE T-WAVE ABNORM ALITY, CONSIDER INFERIOR ISCHEMIA ABNORMAL ECG PREVIOUS TRACING : 05/27/2018 19.54 Compared to previous tracing, Afib with RVR is new DOCTOR: Sam Peguero Interpretating Date/Time 05/28/2018 15:25:59
[2018-05-28] MEDS: Sod Chloride 0.9% Inj 1,000 ML IV.CONT SCH (15:41)
--- NOTE | 2018-05-28 22:29 | ECG ---
Date Performed: 05/27/2018 Time Performed: 19:54:12 PTAGE: 83 years EKG: Sinus rhythm POSSIBLE LEFT ATRIAL ENLARGEMENT NONSPECIFIC ST & T-WAVE ABNORMALITY BORDERLINE ECG PREVIOUS TRACING : 03/15/2018 17.54 Since the previous tracing, no significant change noted DOCTOR: Sam Peguero Interpretating Date/Time 05/28/2018 22:26:39
[2018-05-29 05:54] LABS: INR 1.1 Ratio; Prothrombin Time 11.4 sec (9.8-11.6)
--- NOTE | 2018-05-29 08:21 | P.PNIM ---
Subjective Interval history: Patient seen and evaluated in follow-up for frequent falls and for atrial fibrillation. No new issues overnight. Patient agreeable to for assessment for [facility] as she has completed outpatient physical therapy and seems to have gotten worse. Care plan discussed with [facility] [employer] and patient Physical Exam Vital signs: Vital Signs 05/28/18 09:00 05/28/18 12:00 05/28/18 12:48 Temperature 97.4 F L Pulse Rate 124 H 101 H Respiratory Rate Blood Pressure 99/60 L Pulse Oximetry 05/28/18 16:00 05/28/18 20:00 05/28/18 20:40 Temperature 98.7 F Pulse Rate 102 H Respiratory Rate 18 Blood Pressure 117/65 Pulse Oximetry 97 99 05/29/18 00:00 05/29/18 04:00 05/29/18 05:09 Temperature 98.4 F Pulse Rate 108 H 82 68 Respiratory Rate 20 20 20 Blood Pressure 140/92 H 183/80 H 159/70 H Pulse Oximetry 96 96 95 05/29/18 07:34 Temperature Pulse Rate Respiratory Rate Blood Pressure Pulse Oximetry 96 Intake & Output 05/28/18 05/29/18 05/29/18 18:59 06:59 18:59 Intake Total 1360 / 1360 Output Total 300 / 300 600 / 600 Balance 1060 / 1060 -600 / -600 Weight 55 kg Intake: IV 1000 / 1000 NS Inj 1,000 ML @ 60 mls/hr IV. 1000 / 1000 CONT .[id number] [facility] Rx#: [id number] Oral 360 / 360 Output: Urine 300 / 300 600 / 600 Other: Date of Last Bowel Movement 05/27/18 Narrative: GENERAL: Frail but well-nourished, well-developed patient. SKIN: Warm and dry. HEAD: Normocephalic. EYES: No scleral icterus. No injection or drainage. NECK: Supple, trachea midline. No JVD or lymphadenopathy. CARDIOVASCULAR: Atrial fibrillation without murmurs, gallops, or rubs. RESPIRATORY: Breath sounds equal bilaterally. No accessory muscle use. GASTROINTESTINAL: Abdomen soft, non-tender, nondistended. MUSCULOSKELETAL: No cyanosis, or edema. BACK: Nontender without obvious deformity. No CVA tenderness. NEUROLOGICAL: Awake and alert. Cranial nerves II through XII intact. Motor and sensory grossly within normal limits. Five out of 5 muscle strength in all muscle groups. Normal speech. Results - Labs CBC & Chem 7: 05/28/18 05:40 05/28/18 05:40 Laboratory Results - last 24 hr 05/28/18 05/29/18 13:20 04:50 PT 11.4 11.4 INR 1.1 1.1 Assessment and Plan - Assessment (1) Generalized weakness Code(s): R53.1 - Weakness Status: Acute Plan: Patient with frequent falls likely due to progressive weakness, she does work with Dr. Billingsley neurologist We will evaluate for rehab versus inpatient (2) Frequent falls Code(s): R29.6 - Repeated falls Status: Acute Plan: Continue with fall precautions Strength training and physical therapy are appropriate for this patient (3) Atrial fibrillation with rapid ventricular response Code(s): I48.91 - Unspecified atrial fibrillation Status: Acute Plan: Improved, continue Cardizem and anticoagulation for expected ablation per cardiology (4) Anticoagulated on Coumadin Code(s): Z51.81 - Encounter for therapeutic drug level monitoring; Z79.01 - oysterman (current) use of anticoagulants Status: Acute Plan: INR 1.1, patient has been counseled regarding follow-up risk and intracranial hemorrhage while on Coumadin She and her cardiology team was to continue with anticoagulation Continue with Coumadin/Lovenox (5) Parkinson disease Code(s): G20 - Parkinson's disease Status: Acute Plan: Continue Namenda, amantadine and follow up as an outpatient (6) Rhabdomyolysis Code(s): M62.82 - Rhabdomyolysis Status: Acute Plan: Secondary to frequent falls Continue gentle hydration and follow CPK
[2018-05-29] MEDS: Senna/Docusate Sodium 8.6/50 MG Tablet PO SCH ×2 (09:32→20:12)
[2018-05-29] MEDS: Digoxin 125 MCG Tablet PO SCH (09:33)
[2018-05-29] MEDS: Enoxaparin Inj 60 MG/0.6 ML Syringe SQ SCH ×2 (09:33→20:12)
[2018-05-29] MEDS: Amantadine 100 MG Capsule PO SCH ×3 (09:33→17:42)
[2018-05-29] MEDS: Multivitamin/Minerals Therapeutic Tablet PO SCH (09:33)
[2018-05-29] MEDS: Sod Chloride 0.9% Inj 1,000 ML IV.CONT SCH (09:45)
[2018-05-30] MEDS: Sod Chloride 0.9% Inj 1,000 ML IV.CONT SCH (01:49)
[2018-05-30] MEDS ORDERED: Labetalol HCl Inj 100 MG/20 ML Vial IV.PUSH ONE (05:40)
[2018-05-30 05:52] LABS: INR 1.3 Ratio; Prothrombin Time 12.7 sec (9.8-11.6)
[2018-05-30] MEDS: Senna/Docusate Sodium 8.6/50 MG Tablet PO SCH (09:01)
[2018-05-30] MEDS: Multivitamin/Minerals Therapeutic Tablet PO SCH (09:01)
[2018-05-30] MEDS: Enoxaparin Inj 60 MG/0.6 ML Syringe SQ SCH (09:02)
[2018-05-30] MEDS: Digoxin 125 MCG Tablet PO SCH (09:02)
[2018-05-30] MEDS: Amantadine 100 MG Capsule PO SCH ×2 (09:03→13:55)
--- NOTE | 2018-05-30 10:35 | P.DS ---
Date of admission: 05/27/18 21:29 Primary care physician: No Primary Care Physician Brief History from admission: This is an 83-year-old female patient with a known medical history of atrial fibrillation on Coumadin at home, pacemaker, hyperlipidemia and Parkinson's disease who presented to the ED with complaints of progressively worsening weakness as well as worsening ability to ambulate with frequent falls at home. Patient does live at home with her . She does admit that she is fallen 3 times per day for the past few months. She does admit that when she falls she feels like her legs give out from under her. She does intermittently complain of dizziness, lightheadedness with these falls. She has been following with home health care PT and has been suggested to use a walker although patient states that she has not been using this very often. Patient does have a history of Parkinson's disease, states that this has progressively gotten worse over the past few months. She follows with Dr. Brantley, last seen 1-1/2 months ago with no changes to her medicines. She also has a history of atrial fibrillation, it was questionable whether patient was on anticoagulation at home, it is clear that patient does take Coumadin at home and follows with Dr. Parham in the outpatient setting, was last seen 1 week ago with no changes to her medications. There was question whether an ablation was scheduled for the patient although this has been deferred for a later time. Patient denies any recent illness including fever, chills, cough, shortness of breath, abdominal pain, nausea, vomiting, diarrhea or dysuria. She does admit that she has been taking her medicines appropriately. She presented with elevated CPK at 673, UA was negative as well as CBC was negative. Head CT did not show any acute abnormalities as well as chest x-ray was negative. DS: Diagnosis - Discharge Diagnosis (1) Generalized weakness Status: Acute (2) Frequent falls Status: Acute (3) Atrial fibrillation with rapid ventricular response Status: Acute (4) Anticoagulated on Coumadin Status: Acute (5) Parkinson disease Status: Acute (6) Rhabdomyolysis Status: Acute DS: Summary Hospital Course: Patient was seen and evaluated in follow-up for weakness and atrial fibrillation. Patient continues with anticoagulation as per cardiology recommendations She will need continued physical therapy. - Time Spent with Patient Total time spent providing and/or coordinating discharge services: Less than 30 minutes - Quality: VTE Deep Vein Thrombosis/Pulmonary Embolism Present on Admission: No Exam Vital signs: Vital Signs 05/29/18 12:00 05/29/18 13:26 05/29/18 19:40 Temperature 98.4 F 98.0 F Pulse Rate 92 H Respiratory Rate Blood Pressure 163/70 H Pulse Oximetry 97 05/29/18 20:00 05/30/18 00:00 05/30/18 04:00 Temperature 98.3 F 98.3 F Pulse Rate 85 82 84 Respiratory Rate 20 18 20 Blood Pressure 159/85 H 185/85 H 198/93 H Pulse Oximetry 96 97 97 Intake & Output 05/29/18 05/30/18 05/30/18 18:59 06:59 18:59 Intake Total 2200 / 2200 1000 / 1000 360 / 360 Output Total 1900 / 1900 400 / 400 700 / 700 Balance 300 / 300 600 / 600 -340 / -340 Weight 54 kg Intake: IV 1000 / 1000 1000 / 1000 NS Inj 1,000 ML @ 60 mls/hr IV. 1000 / 1000 1000 / 1000 CONT .[id number] [facility] Rx#: [id number] Oral 1200 / 1200 360 / 360 Output: Urine 1900 / 1900 400 / 400 700 / 700 Other: # Voids 1 # Incontinent Voids 1 Date of Last Bowel Movement 05/29/18 05/29/18 05/30/18 Narrative: GENERAL: Frail elderly female SKIN: Warm and dry. HEAD: Normocephalic. EYES: No scleral icterus. No injection or drainage. NECK: Supple, trachea midline. No JVD or lymphadenopathy. CARDIOVASCULAR: Regular rate and rhythm without murmurs, gallops, or rubs. RESPIRATORY: Breath sounds equal bilaterally. No accessory muscle use. GASTROINTESTINAL: Abdomen soft, non-tender, nondistended. MUSCULOSKELETAL: No cyanosis, or edema. BACK: Nontender without obvious deformity. No CVA tenderness. NEUROLOGICAL: Awake and alert. Cranial nerves II through XII intact. Motor and sensory grossly within normal limits. Five out of 5 muscle strength in all muscle groups. Normal speech. Results Procedures completed during hospitalization: none Labs on day of discharge: Labs from last 24 hours 05/30/18 05/30/18 04:47 04:37 PT 12.7 H INR 1.3 Total Creatine Kinase 96 - Impressions ITS Impressions Chest X-Ray 05/27/18 19:44 CONCLUSION: No acute cardiopulmonary disease demonstrated. Head CT 05/27/18 19:44 CONCLUSION: 1. No acute intracranial abnormality demonstrated. 2. Chronic white matter changes. 3. 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 . Discharge Plan - Discharge Disposition Patient Disposition: 03 Discharge to SNF - Discharge Condition Condition: Stable - Discharge Order Discharge Orders: Discharge Order (Routine); Ordered 05/30/18 Ordered By: Andreea Benton - Physicians Team Primary Care Provider: Primary Care Carsoni,Julianna Attending Provider: Andreea Benton Other Providers: Tory Parham MD ; [facility]
== END 2018-05-30 14:40 ==
LOC: PHED 17:52 → PHEDA 21:29 → PHEDH 05-28 01:29 → PHICU 05-28 08:11
PROVIDERS: ADMIT Hospitalist; ATTEND Hospitalist

== ENCOUNTER 2018-08-20 13:54 | Inpatient (IN) ==
--- NOTE | 2018-08-20 15:46 | ED ---
HPI General Chief complaint: Seizure Stated complaint: Doctor referred/had 3 seizures last night Time Seen by Provider: 08/20/18 15:38 Source: patient Mode of arrival: wheelchair Limitations: no limitations History of Present Illness HPI narrative: This 83-year-old female is brought by her . She falls fairly often. She was here last Saturday after a fall. She sustained a laceration of the occipital portion of the scalp which was sutured and she was released. She has fallen since then. She fell last night. Her says that she has had 3 seizures since last night. The seizures do not last longer characterized by tonic movements of the arms and legs spots of. She does wake up somewhat confused. He says that she has never had seizures before. She has had strokes in the past. She has been on Coumadin and today Dr. Bender told him to stop the Coumadin did have her morning dose today however taking 2.5 mg daily Related Data Home Medications Medication Instructions Recorded Confirmed amantadine HCl 100 mg PO TID 05/16/18 08/20/18 carbidopa-levodopa 1 tab PO TID 05/16/18 08/20/18 diltiazem HCl 120 mg PO DAILY 05/16/18 08/20/18 prolrezztiay-Kj-sdan-minerals 1 tab PO DAILY 05/16/18 08/20/18 [Multiple Vitamin, Womens] potassium chloride [Klor-Con 10] 10 meq PO DAILY 05/16/18 08/20/18 pramipexole 1.5 mg PO TID 05/16/18 08/20/18 digoxin 120 mcg PO DAILY 08/16/18 08/20/18 metoprolol tartrate 25 mg PO DAILY 08/16/18 08/20/18 Allergies Allergy/AdvReac Type Severity Reaction Status Date / Time bacitracin Allergy Severe RASH Verified 08/16/18 20:52 gramicidin D Allergy Severe RASH Verified 08/16/18 20:52 neomycin Allergy Severe RASH Verified 08/16/18 20:52 polymyxin B Allergy Severe RASH Verified 08/16/18 20:52 procaine Allergy Severe RASH Verified 08/16/18 20:52 MYCINS Allergy Severe Rash Uncoded 08/16/18 20:52 TOPICAL ANTIBIOTICS Allergy Mild Rash Uncoded 08/16/18 20:52 Review of Systems ROS: all other systems reviewed are negative Integumentary/Breasts Reports sores Neurologic Reports abnormal movements, Reports behavioral changes, Reports frequent falls and Reports convulsions [facility] Medical History Medical History Hx of cardiac pacemaker (Acute) History of Parkinson's disease (Acute) History of high cholesterol (Acute) History of atrial fibrillation (Acute) History of CVA (cerebrovascular accident) (Acute) Hematoma (Acute) Skin cancer (Acute) Surgical History Surgical History Hx of bilateral cataract extraction (Acute) Hx of breast implants, bilateral (Acute) Hx of cholecystectomy (Acute) Family History Family History Other No pertinent family history Social History Social History Substance History: No History of Abuse Second Hand Smoke Exposure: No Smoking Status: Never smoker How Often Do You Have a Drink Containing Alcohol: 2 to 3 times a week Recent Travel in [facility] within the Last 8 Weeks: No Recent Out of Country Travel within the Last 8 Weeks: No Exam Narrative Exam Narrative: gENERAL: Elderly female SKIN: Focused skin assessment warm/dry. There are some areas of erythema and skin breakdown on the left leg HEAD: Tenderness in the occipital area where his laceration has been sutured. EYES: Pupils equal and round. No scleral icterus. No injection or drainage. ENT: No nasal bleeding or discharge. Mucous membranes pink and moist. NECK: Trachea midline. No JVD. CARDIOVASCULAR: Regular rate and rhythm. No murmur appreciated. RESPIRATORY: No accessory muscle use. Clear to auscultation. Breath sounds equal bilaterally. GASTROINTESTINAL: Abdomen soft, non-tender, nondistended. Hepatic and splenic margins not palpable. MUSCULOSKELETAL: No obvious deformities. No clubbing. No cyanosis. No edema. NEUROLOGICAL: Awake and alert. No obvious cranial nerve deficits. Movements are slow. sHe does have tremor. Hebrew Professor are grossly equal. PSYCHIATRIC: Appropriate mood and affect; insight and judgment normal. Course Initial Documented Vital Signs Pulse Rate 59 L 08/20/18 13:59 Pulse Oximetry 100 08/20/18 13:59 Last Documented Vital Signs Temperature 97.6 F 08/20/18 14:03 Pulse Rate 59 L 08/20/18 17:33 Respiratory Rate 16 08/20/18 17:33 Blood Pressure 187/72 H 08/20/18 17:33 Pulse Oximetry 97 08/20/18 17:33 Medical Decision Making MDM Narrative Medical decision making narrative: CT brain and lab work are pending 1714 p.m. Patient was seen by ED physician and signed out to me. 1840 3 PM[address] I spoke with Dr. Beltran, neurologist. Advised Keppra IV and p.o. Advised patient to be admitted for workup. Medical Screen Exam Complete: Yes Emergency Medical Condition: Yes Differential Diagnosis Differential Diagnosis: Differential includes new onset seizure, intracerebral hemorrhage, coagulopathy Lab Data Lab results reviewed: Yes I reviewed the patient's lab results. Result diagrams: 08/20/18 16:00 08/20/18 16:00 Lab Results 08/20/18 08/20/18 08/20/18 Range/Units 16:00 16:00 16:00 CBC w Diff Slide review pending WBC 10.7 (4.0-11.0) th/mm3 RBC 4.80 (4.00-5.30) mil/mm3 Hgb 14.4 (11.6-15.3) gm/dL Hct 43.1 (35.0-46.0) % MCV 89.8 (80.0-100.0) fL MCH 29.9 (27.0-34.0) pg MCHC 33.3 (32.0-36.0) % RDW 14.6 (11.6-17.2) % Plt Count 216 (150-450) th/mm3 MPV 10.6 (7.0-11.0) fL Neut % (Auto) 71.6 H (16.0-70.0) % Lymph % (Auto) 11.9 (9.0-44.0) % [place] % (Auto) 7.7 (0.0-8.0) % Eos % (Auto) 4.4 H (0.0-4.0) % Baso % (Auto) 4.4 H (0.0-2.0) % Neut # (Auto) 7.6 (1.8-7.7) th/mm3 Lymph # (Auto) 1.3 (1.0-4.8) th/mm3 [place] # (Auto) 0.8 (0.0-0.9) th/mm3 Eos # (Auto) 0.5 H (0.0-0.4) th/mm3 Baso # (Auto) 0.5 H (0.0-0.2) th/mm3 WBC Differential . Diff Scan Auto diff confirmed Differential Comment . Platelet Estimate Normal (Normal) Platelet Morphology Enlarged H (Normal) PT 33.0 H (9.8-11.6) sec INR 3.3 Ratio APTT 41.4 H (24.3-30.1) sec Sodium 143 (136-145) meq/L Potassium 4.6 (3.5-5.1) meq/L Chloride 108 H (98-107) meq/L Carbon Dioxide 26.5 (21.0-32.0) meq/L Anion Gap 9 (5-15) meq/L BUN 16 (7-18) mg/dL Creatinine 0.97 (0.50-1.00) mg/dL Estimated GFR 55 L (>89) mL/min Random Glucose 78 (74-106) mg/dL Calcium 8.6 (8.5-10.1) mg/dL Magnesium 2.3 (1.5-2.5) mg/dL Total Bilirubin 0.7 (0.2-1.0) mg/dL AST 32 (15-37) U/L ALT 13 (10-53) U/L Alkaline Phosphatase 183 H (45-117) U/L Total Protein 7.5 (6.4-8.2) g/dL Albumin 3.1 L (3.4-5.0) g/dL Imaging Data Attestation: I personally reviewed and interpreted this imaging study as follows : Radiologist's impression: Head CT 08/20/18 15:38 CONCLUSION: 1. Stable noncontrast head CT. No acute intracranial abnormality is identified. 2. There is stable encephalomalacia in the left occipital lobe and right cerebellum. . Discharge Plan Discharge Disposition Patient Disposition: 30 Still Patient Discharge Details Diagnosis: New onset seizure, Closed head injury Physicians Team ED Provider: Ac Barrios Primary Care Provider: Paola Bender Rxs /Orders / Referrals /Forms Prescriptions: No Action digoxin 125 mcg tablet 120 mcg PO DAILY RF: 0 metoprolol tartrate 25 mg Tablet 25 mg PO DAILY RF: 0 potassium chloride [Klor-Con 10] 10 mEq Tablet Extended Release 10 meq PO DAILY RF: 0 amantadine HCl 100 mg Capsule 100 mg PO TID RF: 0 diltiazem HCl 120 mg Capsule,Ext.Rel 24h Degradable 120 mg PO DAILY RF: 0 pramipexole 1.5 mg Tablet 1.5 mg PO TID RF: 0 ywitjkfthjvg-Vu-ufwc-minerals [Multiple Vitamin, Womens] Tablet 1 tab PO DAILY RF: 0 carbidopa-levodopa 25-100 mg Tablet,Disintegrating 1 tab PO TID RF: 0 Discharge Interventions Interventions: Vital Signs Last Done: 08/20/18 17:33 Status ED Status: With Doctor
[2018-08-20 16:22] LABS: Baso # (Auto) 0.5 th/mm3 (0.0-0.2); Baso % (Auto) 4.4 % (0.0-2.0); Eos # (Auto) 0.5 th/mm3 (0.0-0.4); Eos % (Auto) 4.4 % (0.0-4.0); Hematocrit 43.1 % (35.0-46.0); Hemoglobin 14.4 gm/dL (11.6-15.3); Lymph # (Auto) 1.3 th/mm3 (1.0-4.8); Lymph % (Auto) 11.9 % (9.0-44.0); Mean Corpuscular HGB Conc 33.3 % (32.0-36.0); Mean Corpuscular Hemoglobin 29.9 pg (27.0-34.0); Mean Corpuscular Volume 89.8 fL (80.0-100.0); Mean Platelet Volume 10.6 fL (7.0-11.0); Mono # (Auto) 0.8 th/mm3 (0.0-0.9); Mono % (Auto) 7.7 % (0.0-8.0); Neut # (Auto) 7.6 th/mm3 (1.8-7.7); Neut % (Auto) 71.6 % (16.0-70.0); Platelet Count 216 th/mm3 (150-450); Red Cell Distribution Width 14.6 % (11.6-17.2); White Blood Count 10.7 th/mm3 (4.0-11.0)
[2018-08-20 16:25] LABS: Chloride 108 meq/L (98-107); Sodium 143 meq/L (136-145)
[2018-08-20 16:26] LABS: Potassium 4.6 meq/L (3.5-5.1)
[2018-08-20 16:31] LABS: Albumin 3.1 g/dL (3.4-5.0); Anion Gap 9 meq/L (5-15); Blood Urea Nitrogen 16 mg/dL (7-18); Calcium 8.6 mg/dL (8.5-10.1); Carbon Dioxide 26.5 meq/L (21.0-32.0); Glucose,Random 78 mg/dL (74-106); Magnesium 2.3 mg/dL (1.5-2.5)
[2018-08-20 16:34] LABS: Alanine Aminotransferase 13 U/L (10-53); Aspartate Aminotransferase 32 U/L (15-37)
[2018-08-20 16:35] LABS: Activated Partial Thrombo Time 41.4 sec (24.3-30.1); Glomerular Filtration Rate 55 mL/min (>89); INR 3.3 Ratio; Total Protein 7.5 g/dL (6.4-8.2)
[2018-08-20 16:37] LABS: Alkaline Phosphatase 183 U/L (45-117)
[2018-08-20 17:11] LABS: Platelet Estimate Normal (Normal)
[2018-08-20] MEDS: Sod Chloride 0.9% Inj 1,000 ML IV.CONT SCH (17:31)
--- NOTE | 2018-08-20 17:53 | CT ---
EXAM DATE: 08/20/2018 5:48 PM EDT AGE/SEX: 83 years / Female INDICATIONS: Seizure. Fall. CLINICAL DATA: This is the patient's initial encounter. Patient reports that signs and symptoms have been present for 1 day and indicates a pain score of 7/10. MEDICAL/SURGICAL HISTORY: Parkinson's disease. Cardiovascular disease. None. RADIATION DOSE: 48.13 CTDI (mGy) COMPARISON: [facility], CT HEAD W/O CONTRAST, 08/16/2018. . TECHNIQUE: CT of the head without contrast. Using automated exposure control and adjustment of the mA and/or kV according to patient size, radiation dose was kept as low as reasonably achievable to ob tain optimal diagnostic quality images. DICOM format image data is available electronically for revi ew and comparison. FINDINGS: Cerebrum: There is mild generalized atrophy and ventricles are normal given the degree of atrophy. M ild periventricular white matter change is present. There is stable encephalomalacia in the left occi pital lobe. No midline shift, mass lesion, hemorrhage or acute infarction. No extraaxial fluid colle ctions are seen. Posterior Fossa: The cerebellum and brainstem demonstrate no acute abnormality. There is stable ence phalomalacia in the right cerebellum. The 4th ventricle is midline. The cerebellopontine angle is wi thin normal limits. Extracranial: The visualized sinuses are clear. Skull: The calvaria is intact. No skull fracture. CONCLUSION: 1. Stable noncontrast head CT. No acute intracranial abnormality is identified. 2. There is stable encephalomalacia in the left occipital lobe and right cerebellum. . Electronically signed by: Jovany Giraldo MD 08/20/2018 5:52 PM EDT
[2018-08-20] MEDS ORDERED: levETIRAcetam 1000mg/100mL Inj 100 ML IV.SIG ONE (18:45)
[2018-08-20] MEDS ORDERED: Bisacodyl 10 MG Supp RECTAL PRN (20:12)
[2018-08-20] MEDS ORDERED: Acetaminophen 325 MG Tablet PO PRN (20:12)
[2018-08-20] MEDS: Senna/Docusate Sodium 8.6/50 MG Tablet PO SCH (22:48)
[2018-08-21] MEDS: levETIRAcetam 500 MG Tablet PO SCH ×3 (01:42→21:15)
[2018-08-21] MEDS: Sod Chloride 0.9% Inj 1,000 ML IV.CONT SCH ×2 (01:50→16:56)
[2018-08-21 07:34] LABS: Chloride 108 meq/L (98-107); Sodium 142 meq/L (136-145)
[2018-08-21 07:37] LABS: INR 2.4 Ratio; Prothrombin Time 24.7 sec (9.8-11.6)
[2018-08-21 07:38] LABS: Calcium 8.8 mg/dL (8.5-10.1)
[2018-08-21 07:39] LABS: Anion Gap 8 meq/L (5-15); Blood Urea Nitrogen 12 mg/dL (7-18); Carbon Dioxide 26.5 meq/L (21.0-32.0); Glucose,Random 80 mg/dL (74-106)
[2018-08-21 07:51] LABS: Alanine Aminotransferase 29 U/L (10-53); Alkaline Phosphatase 166 U/L (45-117); Aspartate Aminotransferase 21 U/L (15-37); Glomerular Filtration Rate 62 mL/min (>89); Total Protein 7.1 g/dL (6.4-8.2)
[2018-08-21 07:55] LABS: Creatine Kinase 58 U/L (26-192)
[2018-08-21] MEDS: Senna/Docusate Sodium 8.6/50 MG Tablet PO SCH ×2 (10:20→21:15)
[2018-08-21] MEDS: dilTIAZem CD 120 MG Capsule PO SCH (10:21)
[2018-08-21] MEDS: Amantadine 100 MG Capsule PO SCH ×3 (10:21→17:46)
[2018-08-21] MEDS: Digoxin 125 MCG Tablet PO SCH (10:21)
[2018-08-21] MEDS: Metoprolol Tartrate 25 MG Tablet PO SCH (10:21)
--- NOTE | 2018-08-21 11:45 | P.HP ---
History of Present Illness Primary Care Physician: Paola Bender MD Chief Complaint: Seizures at home History of Present Illness: This is a pleasant 83-year-old female patient with a known medical history of Parkinson's disease, RA, history of CVA x 2, atrial fibrillation, CAD with CABD , thyroid disease, DM who presented to the ED status post seizures x 3 at home yesterday. Patient was brought in by private vehicle last evening for multiple seizures and falls at home. Has been states that the patient was lying in bed and he witnessed his seizure, states that she was out of it for several minutes and then woke up somewhat confused. Over the past couple days she has been in and out of confusion with reports of multiple falls at home. Supposedly patient presented to the ED on Saturday night after sustaining a laceration to her occipital portion of her scalp, james were placed and she was released home. Patient does have a history of stroke in the past, has been following with Dr. Reddy as well as , for history of stroke as well as Parkinson's disease. Patient also follows with PCP Dr. Bender, whom the is actually called yesterday updating her about multiple falls at home. At that time Dr. Bender had stopped her Coumadin and advised patient to present to the ED. At the time of assessment, patient is sitting up in bed comfortably no apparent distress. Awake and alert, has been at bedside. No reports of any seizures overnight. Patient is more awake today, states that she has had some confusion as well as slurring of this speech over the past couple days. Denies any recent illness including fever, chills, cough, shortness of breath, dumping, nausea, vomiting, diarrhea or dysuria. It should be noted that patient has had some decline with her Parkinson's symptoms including inability to find her mouth, multiple falls and slow eye movements. She does have history of some vertigo which she states she has been somewhat dizzy. CT on presentation was negative for any acute findings. Patient has a pacemaker to undergo an MRI. EEG is done awaiting results. Neurology has been consulted. - Diagnosis (1) Seizures (2) Frequent falls Review of Systems All other systems reviewed negative except as stated in HPI [facility] - History History Provided By: Patient - Medical History Medical History: Medical History (Last Reviewed 08/21/18 @ 12:05 by Amparo Coulter) Hx of cardiac pacemaker (Acute) History of Parkinson's disease (Acute) History of high cholesterol (Acute) History of atrial fibrillation (Acute) History of CVA (cerebrovascular accident) Hematoma Skin cancer - Surgical History Surgical History: Surgical History (Last Reviewed 08/21/18 @ 12:05 by Amparo Coulter) Hx of bilateral cataract extraction (Acute) Hx of breast implants, bilateral (Acute) Hx of cholecystectomy (Acute) - Family History Family History: Family History (Last Reviewed 08/21/18 @ 12:05 by Amparo Coulter) Other No pertinent family history - Social History I have reviewed the patient's Social History: Yes - Tobacco History Second Hand Smoke Exposure: Yes Tobacco Use In Past 30 Days: No Smoking Status: Never smoker - Alcohol History How Often Do You Have a Drink Containing Alcohol: 2 to 4 times a month - Substance Use History Substance History: No History of Abuse - Travel History Recent Travel in the [place] Within the Last 8 Weeks: No Recent Travel Out of the Country Within the Last 8 Weeks: No - Immunization History Tetanus Immunization: <5 Years Hx Influenza Vaccine This Season: Yes Medications and Allergies Active Medications: Active Medications Acetaminophen (Tylenol) 650 mg PO Q4H PRN PRN Reason: Temp > 100.4 Al Hydroxide/Mg Hydroxide (Milk Of Magnmonique Liq) 30 ml PO Q12H PRN PRN Reason: Mild Constipation Amantadine HCl (Symmetrel) 100 mg PO TID [facility] Last Admin: 08/21/18 10:21 Dose: 100 mg Bisacodyl (Dulcolax Supp) 10 mg RECTAL DAILY PRN PRN Reason: SEVERE CONSITIPATION Carbidopa/Levodopa (Sinemet 25/100 Mg) 1 tab PO TID [facility] Last Admin: 08/21/18 10:21 Dose: 1 tab Digoxin (Lanoxin) 125 mcg PO DAILY [facility] Last Admin: 08/21/18 10:21 Dose: 125 mcg Diltiazem HCl (Cardizem Cd 24hr) 120 mg PO DAILY [facility] Last Admin: 08/21/18 10:21 Dose: 120 mg Sodium Chloride (Ns Inj) 1,000 mls @ 60 mls/hr IV.CONT .[id number] [facility] Last Infusion: 08/21/18 02:20 Dose: 0 mls/hr Lactulose (Lactulose Liq) 30 ml PO DAILY PRN PRN Reason: SEVERE CONSITIPATION Levetiracetam (Keppra) 500 mg PO BID [facility] Last Admin: 08/21/18 10:21 Dose: 500 mg Metoprolol Tartrate (Lopressor) 25 mg PO DAILY [facility] Last Admin: 08/21/18 10:21 Dose: 25 mg Ondansetron HCl (Zofran Inj) 4 mg IV.PUSH Q6H PRN PRN Reason: NAUSEA OR VOMITING Pramipexole Dihydrochloride (Mirapex) 1.5 mg PO TID [facility] Last Admin: 08/21/18 10:22 Dose: 1.5 mg Senna/Docusate Sodium (Ambar-Colace) 1 tab PO BID [facility] Last Admin: 08/21/18 10:20 Dose: Not Given Sennosides (Senokot) 17.2 mg PO Q12H PRN PRN Reason: Moderate Constipation Sodium Chloride (Ns Flush) 2 ml IV.FLUSH PRN PRN PRN Reason: FLUSH AFTER USING IV ACCESS Allergies Allergy/AdvReac Type Severity Reaction Status Date / Time bacitracin Allergy Severe RASH Verified 08/16/18 20:52 gramicidin D Allergy Severe RASH Verified 08/16/18 20:52 neomycin Allergy Severe RASH Verified 08/16/18 20:52 polymyxin B Allergy Severe RASH Verified 08/16/18 20:52 procaine Allergy Severe RASH Verified 08/16/18 20:52 MYCINS Allergy Severe Rash Uncoded 08/16/18 20:52 TOPICAL ANTIBIOTICS Allergy Mild Rash Uncoded 08/16/18 20:52 Home Medications Medication Instructions Recorded Confirmed Type amantadine HCl 100 mg PO TID 05/16/18 08/20/18 History carbidopa-levodopa 1 tab PO TID 05/16/18 08/20/18 History diltiazem HCl 120 mg PO DAILY 05/16/18 08/20/18 History tyhpocjiyewm-Ff-pfnd-minerals 1 tab PO DAILY 05/16/18 08/20/18 History [Multiple Vitamin, Womens] potassium chloride [Klor-Con 10] 10 meq PO DAILY 05/16/18 08/20/18 History pramipexole 1.5 mg PO TID 05/16/18 08/20/18 History digoxin 120 mcg PO DAILY 08/16/18 08/20/18 History metoprolol tartrate 25 mg PO DAILY 08/16/18 08/20/18 History Exam Vital signs: Vital Signs 08/20/18 13:59 08/20/18 14:03 08/20/18 17:33 Temperature 97.6 F Pulse Rate 59 L 69 59 L Respiratory Rate 18 16 Blood Pressure 107/66 187/72 H Pulse Oximetry 100 100 97 08/20/18 19:38 08/20/18 21:03 08/20/18 23:14 Temperature 97.1 F L Pulse Rate 64 60 Respiratory Rate 16 18 Blood Pressure 128/68 196/86 H Pulse Oximetry 97 99 08/21/18 00:00 08/21/18 04:00 08/21/18 08:00 Temperature 97.9 F 97.3 F L Pulse Rate 66 62 Respiratory Rate 18 20 Blood Pressure 195/78 H 179/79 H 197/91 H Pulse Oximetry 97 96 Intake & Output 08/20/18 08/21/18 08/21/18 18:59 06:59 18:59 Intake Total 700 / 700 200 / 200 Output Total 125 / 125 Balance 700 / 700 75 / 75 Weight 48 kg 48.8 kg Intake: IV 700 / 700 NS Inj 1,000 ML @ 60 mls/hr IV. 600 / 600 CONT .[id number] [facility] Rx#: [id number] Keppra 1000 mg/100 mL Premix 100 / 100 100 ML @ 400 mls/hr IV.SIG ONCE ONE Rx#:[id number] Oral 0 / 0 200 / 200 Output: Urine 125 / 125 Other: # Voids 1 Date of Last Bowel Movement 08/19/18 Weight On Admission 49.2 kg Narrative: GENERAL: Well-developed, well-nourished elderly female patient in [facility]. SKIN: Warm and dry. No rash. Multiple skin abrasions on lower extremities, clean and dry, no drainage. Bandages in place. HEAD: Normocephalic. Atraumatic. EYES: Pupils equal and round. No scleral icterus. No injection or drainage. ENT: No nasal bleeding or discharge. Mucous membranes pink and moist. NECK: Supple. Trachea midline. CARDIOVASCULAR: Regular rate and rhythm. S1, S2 noted. No murmur appreciated. RESPIRATORY: No accessory muscle use. Clear to auscultation. Breath sounds equal bilaterally. GASTROINTESTINAL: Abdomen soft, non-tender, nondistended. Normoactive bowel sounds x4. MUSCULOSKELETAL: Extremities without clubbing, cyanosis, or edema. Left hand with some contractures. Bilateral lower extremities with mild foot drop. 4/5 muscle strength. NEUROLOGICAL: Awake and alert. No obvious cranial nerve deficits. Motor grossly within normal limits. 4/5 muscle strength in bilateral upper and lower extremities. Normal speech. PSYCHIATRIC: Appropriate mood and affect; insight and judgment normal. Results - Labs CBC & Chem 7: 08/20/18 16:00 08/21/18 07:10 Labs: Laboratory Results - last 24 hr 08/20/18 08/20/18 08/20/18 16:00 16:00 16:00 CBC w Diff Slide review pending WBC 10.7 RBC 4.80 Hgb 14.4 Hct 43.1 MCV 89.8 MCH 29.9 MCHC 33.3 RDW 14.6 Plt Count 216 MPV 10.6 Neut % (Auto) 71.6 H Lymph % (Auto) 11.9 [place] % (Auto) 7.7 Eos % (Auto) 4.4 H Baso % (Auto) 4.4 H Neut # (Auto) 7.6 Lymph # (Auto) 1.3 [place] # (Auto) 0.8 Eos # (Auto) 0.5 H Baso # (Auto) 0.5 H WBC Differential . Diff Scan Auto diff confirmed Differential Comment . Platelet Estimate Normal Platelet Morphology Enlarged H PT 33.0 H INR 3.3 APTT 41.4 H Sodium 143 Potassium 4.6 Chloride 108 H Carbon Dioxide 26.5 Anion Gap 9 BUN 16 Creatinine 0.97 Estimated GFR 55 L Random Glucose 78 Calcium 8.6 Magnesium 2.3 Total Bilirubin 0.7 AST 32 ALT 13 Alkaline Phosphatase 183 H Total Creatine Kinase Total Protein 7.5 Albumin 3.1 L 08/21/18 08/21/18 07:10 07:10 CBC w Diff WBC RBC Hgb Hct MCV MCH MCHC RDW Plt Count MPV Neut % (Auto) Lymph % (Auto) [place] % (Auto) Eos % (Auto) Baso % (Auto) Neut # (Auto) Lymph # (Auto) [place] # (Auto) Eos # (Auto) Baso # (Auto) WBC Differential Diff Scan Differential Comment Platelet Estimate Platelet Morphology PT 24.7 H INR 2.4 APTT Sodium 142 Potassium 4.0 Chloride 108 H Carbon Dioxide 26.5 Anion Gap 8 BUN 12 Creatinine 0.88 Estimated GFR 62 L Random Glucose 80 Calcium 8.8 Magnesium Total Bilirubin 1.0 AST 21 ALT 29 Alkaline Phosphatase 166 H Total Creatine Kinase 58 Total Protein 7.1 Albumin 3.0 L - Imaging Impressions Head CT 08/20/18 15:38 CONCLUSION: 1. Stable noncontrast head CT. No acute intracranial abnormality is identified. 2. There is stable encephalomalacia in the left occipital lobe and right cerebellum. . Caprini VTE Risk Assessment Caprini VTE Risk Assessment: Moderate/High Risk (score >= 2) Caprini Risk Assessment Model: Point Value = 1 Point Value = 2 Point Value = 3 Point Value = 5 Age 41-60 Minor surgery BMI > 25 kg/m2 Swollen legs Varicose veins or History of unexplained or recurrent spontaneous Oral contraceptives or hormone replacement Sepsis (< 1 month) Serious lung disease, including pneumonia (< 1 month) Abnormal pulmonary function Acute myocardial infarction Congestive heart failure (< 1 month) History of inflammatory bowel disease Medical patient at bed rest Age 61-74 Arthroscopic surgery Major open surgery (> 45 min) Laparoscopic surgery (> 45 min) Malignancy Confined to bed (> 72 hours) Immobilizing plaster cast Central venous access Age >= 75 History of VTE Family history of VTE Factor V Leiden Prothrombin [id number] Lupus anticoagulant Anticardiolipin antibodies Elevated serum homocysteine Heparin-induced thrombocytopenia Other congenital or acquired thrombophilia Stroke (< 1 month) Elective arthroplasty Hip, pelvis, or leg fracture Acute spinal cord injury (< 1 month) Prophylaxis Regimen: Total Risk Factor Score Risk Level Prophylaxis Regimen 0-1 Low Early ambulation 2 Moderate Order ONE of the following: *Sequential Compression Device (SCD) *Heparin 5000 units SQ BID 3-4 Higher Order ONE of the following medications: *Heparin 5000 units SQ TID *Enoxaparin/Lovenox 40 mg SQ daily (WT < 150 kg, CrCl > 30 mL/min) *Enoxaparin/Lovenox 30 mg SQ daily (WT < 150 kg, CrCl > 10-29 mL/min) *Enoxaparin/Lovenox 30 mg SQ BID (WT < 150 kg, CrCl > 30 mL/min) AND/OR *Sequential Compression Device (SCD) 5 or more Highest Order ONE of the following medications: *Heparin 5000 units SQ TID (Preferred with Epidurals) *Enoxaparin/Lovenox 40 mg SQ daily (WT < 150 kg, CrCl > 30 mL/min) *Enoxaparin/Lovenox 30 mg SQ daily (WT < 150 kg, CrCl > 10-29 mL/min) *Enoxaparin/Lovenox 30 mg SQ BID (WT < 150 kg, CrCl > 30 mL/min) AND *Sequential Compression Device (SCD) Assessment and Plan - Assessment (1) Seizures Code(s): R56.9 - Unspecified convulsions Status: Acute (2) Frequent falls Code(s): R29.6 - Repeated falls Status: Acute - Plan This is a history of 83-year-old female who presented to the ED with: Multiple witnessed seizures at home Multiple falls at home History of Parkinson's disease History of vertigo History of old CVA -Patient presented status post seizures x 3 at home, witnessed by . -Head CT on presentation reviewed showing no acute abnormalities. Does show some stable encephalomalacia in the left occipital lobe. Unable to obtain MRI secondary to pacemaker in place. -Neurology has been consulted, appreciate input and recommendations. -EEG done and awaiting reading. -Continue on Keppra as ordered in ED. -PT evaluation ordered, input and recommendations pending. -Check for orthostatic BPs. -Continue home medications including Sinemet. -Continue on cardiac telemetry, monitor for any arrhythmias. -High risk for falls. Seizure precautions. Supportive care. History of atrial fibrillation History of pacemaker placement History of CVA -Continue Coumadin per neurology recommendations. -Continue on cardiac telemetry. -Heart healthy diet as tolerated. DVT Prophylaxis: SCDs. Coumadin.
--- NOTE | 2018-08-21 14:47 | MG ---
cc: Yokasta Licea MD EEG NUMBER: [id number] REFERRING PHYSICIAN: Dr. Villa. TECHNIQUE: Awake, drowsy, asleep with photic stimulation only. INDICATIONS: CT: Encephalomalacia left occipital lobe, cerebellum on the right. Admitted with multiple falls. New onset seizure. Three witnessed ones at home, on amantadine and Sinemet. Also, has a history of Parkinson's. MEDICATIONS: Keppra. FINDINGS: The patient had some mild slowing of background, predominantly of 5-6 Hz, noted to be snoring. Some myogenic artifact in the beginning portion of the recording, but otherwise symmetrical. Mild slowing noted at times. No obvious epileptiform features. Photic stimulation does show a driving response. IMPRESSION: Mild slowing of the background may be due to sedation medicine effect or mild encephalopathy. No epileptiform features seen in this one recording. Clinical correlation. Yokasta Licea MD DF/ , 02:20 PM , 02:26 PM
[2018-08-21 15:27] LABS: Thyroid Stimulating Hormone 1.7 uIU/mL (0.358-3.740)
--- NOTE | 2018-08-21 16:26 | ECG ---
Date Performed: 08/20/2018 Time Performed: 16:02:54 PTAGE: 83 years EKG: ELECTRONIC ATRIAL PACEMAKER NONSPECIFIC ST & T-WAVE ABNORMALITY When compared to previous t racing, atrial pacing has rerplaced Atrial fibrillation. ABNORMAL RHYTHM ECG PREVIOUS TRACING : 05/28/2018 10.11 DOCTOR: John Paul Fan Interpretating Date/Time 08/21/2018 16:25:03
[2018-08-21] MEDS: Erythromycin 0.5% Opth Oint 3.5 GM Tube LEFT EYE SCH ×2 (17:46→21:15)
[2018-08-21 21:12] LABS: Free T4 (Free Thyroxine) 1.34 ng/dL (0.76-1.46)
[2018-08-22] MEDS: dilTIAZem CD 120 MG Capsule PO SCH (08:22)
[2018-08-22] MEDS: Amantadine 100 MG Capsule PO SCH ×3 (08:23→17:18)
[2018-08-22] MEDS: Digoxin 125 MCG Tablet PO SCH (08:23)
[2018-08-22] MEDS: Metoprolol Tartrate 25 MG Tablet PO SCH (08:23)
[2018-08-22] MEDS: Senna/Docusate Sodium 8.6/50 MG Tablet PO SCH ×2 (08:23→22:51)
[2018-08-22] MEDS: levETIRAcetam 500 MG Tablet PO SCH ×2 (08:24→21:49)
[2018-08-22] MEDS: Erythromycin 0.5% Opth Oint 3.5 GM Tube LEFT EYE SCH ×4 (08:25→21:49)
[2018-08-22] MEDS: Sod Chloride 0.9% Inj 1,000 ML IV.CONT SCH (08:31)
[2018-08-22 10:13] LABS: Cholesterol 145 mg/dL (120-200); Triglycerides 131 mg/dL (42-150)
[2018-08-22 10:14] LABS: Chol/HDL Ratio 2.21 Ratio; HDL Cholesterol 65.5 mg/dL (40.0-60.0); LDL Cholesterol,Calculated 53 mg/dL (0-99)
--- NOTE | 2018-08-22 10:51 | P.PNIM ---
Subjective Interval history: Follow up seizures. Patient seen and examined, sitting on side of bed with tech. at bedside and no reports of any acute events overnight. Doing much improved. Speech clear. No signs of seizures. Afebrile. VSS. Physical Exam Vital signs: Vital Signs 08/21/18 14:00 08/21/18 20:00 08/22/18 00:00 Temperature 97.8 F 97.6 F 97.9 F Pulse Rate 60 60 60 Respiratory Rate 21 18 20 Blood Pressure 134/63 134/63 157/77 H Pulse Oximetry 96 97 98 08/22/18 04:00 08/22/18 08:00 Temperature 97.7 F 96.6 F L Pulse Rate 63 67 Respiratory Rate 20 16 Blood Pressure 190/76 H 188/86 H Pulse Oximetry 99 97 Intake & Output 08/21/18 08/22/18 08/22/18 18:59 06:59 18:59 Intake Total 1320 / 1320 60 / 60 980 / 980 Output Total 125 / 125 Balance 1195 / 1195 60 / 60 980 / 980 Weight 54.4 kg Intake: IV 1000 / 1000 980 / 980 NS Inj 1,000 ML @ 60 mls/hr IV. 1000 / 1000 980 / 980 CONT .[id number] LEX Rx#: [id number] Oral 320 / 320 60 / 60 Output: Urine 125 / 125 Other: # Voids 3 3 Date of Last Bowel Movement 08/19/18 Narrative: GENERAL: Well-developed, well-nourished elderly female patient in [facility]. SKIN: Warm and dry. No rash. Multiple skin abrasions on lower extremities, clean and dry, no drainage. Bandages in place. Sacrum with what appears to be a DTI. No open areas, erythema. states this is from home. HEAD: Normocephalic. Atraumatic. EYES: Pupils equal and round. No scleral icterus. No injection or drainage. ENT: No nasal bleeding or discharge. Mucous membranes pink and moist. NECK: Supple. Trachea midline. CARDIOVASCULAR: Regular rate and rhythm. S1, S2 noted. No murmur appreciated. RESPIRATORY: No accessory muscle use. Clear to auscultation. Breath sounds equal bilaterally. GASTROINTESTINAL: Abdomen soft, non-tender, nondistended. Normoactive bowel sounds x4. MUSCULOSKELETAL: Extremities without clubbing, cyanosis, or edema. Left hand with some contractures. Bilateral lower extremities with mild foot drop. 4/5 muscle strength. NEUROLOGICAL: Awake and alert. No obvious cranial nerve deficits. Motor grossly within normal limits. 4/5 muscle strength in bilateral upper and lower extremities. Normal speech. PSYCHIATRIC: Appropriate mood and affect; insight and judgment normal. Results - Labs CBC & Chem 7: 08/20/18 16:00 08/21/18 07:10 Laboratory Results - last 24 hr 08/21/18 08/21/18 08/22/18 13:52 13:52 05:43 ESR 13 Troponin I Less than 0.02 L Triglycerides 131 Cholesterol 145 LDL Cholesterol, Calc 53 HDL Cholesterol 65.5 H Cholesterol/HDL Ratio 2.21 Vitamin B12 319 TSH 1.700 Free T4 1.34 Assessment and Plan - Assessment (1) Seizures Code(s): R56.9 - Unspecified convulsions Status: Acute (2) Frequent falls Code(s): R29.6 - Repeated falls Status: Acute - Plan This is a history of 83-year-old female who presented to the ED with: Multiple witnessed seizures at home Multiple falls at home History of Parkinson's disease History of vertigo History of old CVA -Patient presented status post seizures x 3 at home, witnessed by . -Head CT on presentation reviewed showing no acute abnormalities. Does show some stable encephalomalacia in the left occipital lobe. Unable to obtain MRI secondary to pacemaker in place. -Neurology has been consulted, appreciate input and recommendations. -EEG done and reviewed, no seizures noted. -Continue on Keppra as ordered in ED. -PT evaluation ordered, appreciate input and recommendations, recommendations for rehab. -Orthostatic BPs reviewed, mildly positive, systolic BP dropped from 160's-130' s. -Continue home medications including Sinemet. -Continue on cardiac telemetry, monitor for any arrhythmias. -High risk for falls. Seizure precautions. Supportive care. History of atrial fibrillation History of pacemaker placement History of CVA -Continue Coumadin per neurology recommendations. -Continue on cardiac telemetry. -Heart healthy diet as tolerated. DVT Prophylaxis: SCDs. Coumadin. Discharge Planning: Awaiting further neuro recs and three night stay for rehab. Possible DC tomorrow am.
[2018-08-22 15:18] LABS: Anti-Nuclear Antibody Screen Pos (Neg)
[2018-08-22 15:39] LABS: INR 1.9 Ratio; Prothrombin Time 19.1 sec (9.8-11.6)
--- NOTE | 2018-08-22 16:05 | P.DIET ---
Nutritional Evaluation Type of nutrition evaluation: initial Nutrition consult regarding: Diet Evaluation Nutrition screening: Weight Loss > 10 lbs Objective - Diagnosis new onset seizures, closed head injury - Objective Body Mass Index: 20.0 % IBW: 96 (IBW = 125lb) Body Weight Used for Calculations: Actual Energy Needs - Lower Range (kCal/kg): 25 Energy Needs - Upper Range (kCal/kg): 30 Lower Limit kCal/kg (kCals): 1,360 Upper Limit kCal/kg (kCals): 1,632 Lower Limit Protein Factor (Grams per Kg): 1.2 Upper Limit Protein Factor (Grams per Kg): 1.5 Lower Protein Needs (Protein): 65 Upper Protein Needs (Protein): 82 Fluid Factor (ml/kg): 25 Estimated Fluid Needs (ml): 1,360 Dietitian Reviewed in Medical Record: Current diet, Curent medications, Intake & Output, Labs, Medical history Diet Order: cardiac Oral Diet Intake Amount: Good 75-90% Objective Comments: PMH: hematoma, hx of AFIS, CVA, high cholesterol, parkinsons disaese, cardiac pacemaker, skin cancer Labs: GFR 62 Assessment Assessment: Pt currently at nutritional risk r/t reported unplanned wt loss. Pt currenly eating 50-100% of most meals provided to her and tolerating well. Will continue to assess pts nutritional needs for PO supplement as necessary. Per MD, pt may d /c tomorrow am. Monitor PO intake. Labs reviewed, dietitian following. Recommendations: 1. Will continue to assess pts nutritional needs for PO supplement as necessary 2. Monitor PO intake 3. Dietitian following Dietitian to Monitor: Lab values, Intake & Output, Weight change, PO Intake
--- NOTE | 2018-08-22 17:45 | P.PNNEU ---
Subjective Active Medications: Active Medications Acetaminophen (Tylenol) 650 mg PO Q4H PRN PRN Reason: Temp > 100.4 Al Hydroxide/Mg Hydroxide (Milk Of Magnesia Liq) 30 ml PO Q12H PRN PRN Reason: Mild Constipation Amantadine HCl (Symmetrel) 100 mg PO TID [facility] Last Admin: 08/22/18 17:18 Dose: 100 mg Bisacodyl (Dulcolax Supp) 10 mg RECTAL DAILY PRN PRN Reason: SEVERE CONSITIPATION Carbidopa/Levodopa (Sinemet 25/100 Mg) 1 tab PO TID [facility] Last Admin: 08/22/18 17:19 Dose: 1 tab Digoxin (Lanoxin) 125 mcg PO DAILY [facility] Last Admin: 08/22/18 08:23 Dose: 125 mcg Diltiazem HCl (Cardizem Cd 24hr) 120 mg PO DAILY [facility] Last Admin: 08/22/18 08:22 Dose: 120 mg Erythromycin (Ilotycin 0.5% Opth Oint) 1 applicatio LEFT EYE QID [facility] Last Admin: 08/22/18 17:19 Dose: 1 applicatio Lactulose (Lactulose Liq) 30 ml PO DAILY PRN PRN Reason: SEVERE CONSITIPATION Levetiracetam (Keppra) 500 mg PO BID [facility] Last Admin: 08/22/18 08:24 Dose: 500 mg Metoprolol Tartrate (Lopressor) 25 mg PO DAILY [facility] Last Admin: 08/22/18 08:23 Dose: 25 mg Ondansetron HCl (Zofran Inj) 4 mg IV.PUSH Q6H PRN PRN Reason: NAUSEA OR VOMITING Pramipexole Dihydrochloride (Mirapex) 1.5 mg PO TID [facility] Last Admin: 08/22/18 17:18 Dose: 1.5 mg Senna/Docusate Sodium (Ambar-Colace) 1 tab PO BID [facility] Last Admin: 08/22/18 08:23 Dose: Not Given Sennosides (Senokot) 17.2 mg PO Q12H PRN PRN Reason: Moderate Constipation Sodium Chloride (Ns Flush) 2 ml IV.FLUSH PRN PRN PRN Reason: FLUSH AFTER USING IV ACCESS Warfarin Sodium (Coumadin) 2.5 mg PO DAILY@1600 [facility] Last Admin: 11/02/18 16:28 Dose: 2.5 mg Allergies/Adverse Reactions: Allergies Allergy/AdvReac Type Severity Reaction Status Date / Time bacitracin Allergy Severe RASH Verified 08/16/18 20:52 gramicidin D Allergy Severe RASH Verified 08/16/18 20:52 neomycin Allergy Severe RASH Verified 08/16/18 20:52 polymyxin B Allergy Severe RASH Verified 08/16/18 20:52 procaine Allergy Severe RASH Verified 08/16/18 20:52 MYCINS Allergy Severe Rash Uncoded 08/16/18 20:52 TOPICAL ANTIBIOTICS Allergy Mild Rash Uncoded 08/16/18 20:52 Physical Exam Vital signs: Vital Signs 08/21/18 20:00 08/22/18 00:00 08/22/18 04:00 Temperature 97.6 F 97.9 F 97.7 F Pulse Rate 60 60 63 Respiratory Rate 18 20 20 Blood Pressure 134/63 157/77 H 190/76 H Pulse Oximetry 97 98 99 08/22/18 08:00 08/22/18 12:00 08/22/18 16:00 Temperature 96.6 F L 96.7 F L 96.8 F L Pulse Rate 67 62 70 Respiratory Rate 16 16 16 Blood Pressure 188/86 H 161/72 H 182/82 H Pulse Oximetry 97 97 100 Intake & Output 08/21/18 08/22/18 08/22/18 18:59 06:59 18:59 Intake Total 1320 / 1320 60 / 60 980 / 980 Output Total 125 / 125 Balance 1195 / 1195 60 / 60 980 / 980 Weight 54.4 kg Intake: IV 1000 / 1000 980 / 980 NS Inj 1,000 ML @ 60 mls/hr IV. 1000 / 1000 980 / 980 CONT .[id number] [facility] Rx#: [id number] Oral 320 / 320 60 / 60 Output: Urine 125 / 125 Other: # Voids 3 3 Date of Last Bowel Movement 08/19/18 08/19/18 Narrative: awake alert her gait is very scissoring and tends to lean back small steps teo around chair Objective Laboratory Results - last 24 hr 08/21/18 08/21/18 08/21/18 13:52 13:52 13:52 ESR 13 PT INR Troponin I Triglycerides Cholesterol LDL Cholesterol, Calc HDL Cholesterol Cholesterol/HDL Ratio Vitamin B12 319 Free T4 1.34 SWAPNIL Screen Pos H 08/22/18 08/22/18 05:43 15:05 ESR PT 19.1 H INR 1.9 Troponin I Less than 0.02 L Triglycerides 131 Cholesterol 145 LDL Cholesterol, Calc 53 HDL Cholesterol 65.5 H Cholesterol/HDL Ratio 2.21 Vitamin B12 Free T4 SWAPNIL Screen Review/Management - Review/Management Plan: imp i suspect her digression which she says haped suddenly was the cva on top of PD and witht he scissoring gait i suspect the cva is main issue check ct c and t spine make sure no myelopathy not seen on exam as dtr not inc and no clonus
--- NOTE | 2018-08-22 20:52 | CT ---
EXAM DATE: 08/22/2018 8:41 PM EDT AGE/SEX: 83 years / Female INDICATIONS: Evaluate for myelopathy. CLINICAL DATA: This is the patient's initial encounter. Patient reports that signs and symptoms have been present for 3 days and indicates a pain score of 0/10. MEDICAL/SURGICAL HISTORY: Cardiovascular disease. Cerebrovascular disease. Parkinson's diseas e. Hypertension. Seizures. Cholecystectomy. Pacemaker. RADIATION DOSE: 26.87 CTDI (mGy) ; Combined studies COMPARISON: No prior exams available for comparison. TECHNIQUE: Contiguous axial images were obtained using helical multirow detector technique. The vol umetric data was post-processed with multiplanar reconstruction in oblique axial, sagittal, and coron al planes. Using automated exposure control and adjustment of the mA and/or kV according to patient s ize, radiation dose was kept as low as reasonably achievable to obtain optimal diagnostic quality michelle ges. DICOM format image data is available electronically for review and comparison. FINDINGS: Vertebrae: Normal vertebral body height. Alignment: Normal. No subluxation. C2-3: The bony spinal canal is normal in size. No evidence of disc bulge or herniation. The neural foramina are bilaterally patent. There is minimal facet hypertrophy. C3-4: The disc demonstrates minimal loss of height. There is minimal disc bulge. This causes a mild impression on the thecal sac. There is uncovertebral hypertrophy. The neural foramina are grossly pat ent. There is mild facet hypertrophy. C4-5: The disc demonstrates decreased height. There is mild disc bulge and osteophytic ridging causi ng a mild impression on thecal sac. There is uncovertebral hypertrophy. There is minimal facet hypert rophy. The neural foramina are grossly patent. C5-6: The disc demonstrates decreased height. There is mild disc bulge and osteophytic ridging. This causes a mild to moderate impression on thecal sac. The impression on thecal sac is asymmetric being worse on the right. There is uncovertebral hypertrophy. There is minimal facet hypertrophy. The neur al foramina are patent. C6-7: There is minimal diffuse disc bulge. Significant stenosis is not seen. The neural foramina are normal. C7-T1: The bony spinal canal is normal in size. No evidence of disc bulge or herniation. The neura l foramina are bilaterally patent. CONCLUSION: 1. No acute bony abnormality. 2. Degenerative change as described above. The most prominently affected level is the C5-C6 level. Electronically signed by: Jovany Parra MD 08/22/2018 8:51 PM EDT
--- NOTE | 2018-08-22 20:57 | CT ---
EXAM DATE: 08/22/2018 8:45 PM EDT AGE/SEX: 83 years / Female INDICATIONS: Evaluate for myelopathy. CLINICAL DATA: This is the patient's initial encounter. Patient reports that signs and symptoms have been present for 3 days and indicates a pain score of 0/10. MEDICAL/SURGICAL HISTORY: Cerebrovascular disease. Cardiovascular disease. Parkinson's disease. Hypertension. Seizures. Cholecystectomy. Pacemaker. RADIATION DOSE: 26.87 CTDI (mGy) ; Combined studies COMPARISON: No prior exams available for comparison. TECHNIQUE: Contiguous axial images were acquired using a multirow detector CT scanner without contra st. Multiplanar reconstruction in the sagittal and coronal planes was performed. Using automated exp osure control and adjustment of the mA and/or kV according to patient size, radiation dose was kept a s low as reasonably achievable to obtain optimal diagnostic quality images. DICOM format image data is available electronically for review and comparison. FINDINGS: Vertebrae: Normal vertebral body height. Alignment: Normal. No subluxation. There are calcified granulomas in the right upper lung, superior segment of the right lower lobe, and in the posterior medial left upper lung. The patient has a pacing device seen in the left upper ches t. T1 - T2: Normal. T2 - T3: The thecal sac has a normal diameter. No evidence of disc bulge or protrusion. T3 - T4: The thecal sac has a normal diameter. No evidence of disc bulge or protrusion. T4 - T5: The thecal sac has a normal diameter. No evidence of disc bulge or protrusion. T5 - T6: The thecal sac has a normal diameter. No evidence of disc bulge or protrusion. T6 - T7: The thecal sac has a normal diameter. No evidence of disc bulge or protrusion. T7 - T8: The thecal sac has a normal diameter. No evidence of disc bulge or protrusion. T8 - T9: The thecal sac has a normal diameter. No evidence of disc bulge or protrusion. T9 - T10: The thecal sac has a normal diameter. No evidence of disc bulge or protrusion. T10 - T11: The thecal sac has a normal diameter. No evidence of disc bulge or protrusion. T11 - T12: The thecal sac has a normal diameter. No evidence of disc bulge or protrusion. T12 - L1: The thecal sac has a normal diameter. No evidence of disc bulge or protrusion. CONCLUSION: Negative thoracic spine CT examination. Electronically signed by: Jovany Parra MD 08/22/2018 8:56 PM EDT
--- NOTE | 2018-08-22 23:43 | CT ---
EXAM DATE: 08/22/2018 11:37 PM EDT AGE/SEX: 83 years / Female INDICATIONS: Trauma. Head injury. Patient fell. CLINICAL DATA: This is the patient's initial encounter. Patient reports that signs and symptoms have been present for 1 day and indicates a pain score of 3/10. MEDICAL/SURGICAL HISTORY: . Hematoma. Atrial fibrillation. Cerebrovascular accident. High cholester ol. Parkinson's disease. Cardiac pacemaker. Skin cancer. Cholecystectomy. RADIATION DOSE: 47.04 CTDI (mGy) COMPARISON: [facility], CT HEAD W/O CONTRAST, 08/20/2018. . TECHNIQUE: CT of the head without contrast. Using automated exposure control and adjustment of the mA and/or kV according to patient size, radiation dose was kept as low as reasonably achievable to ob tain optimal diagnostic quality images. DICOM format image data is available electronically for revi ew and comparison. FINDINGS: Stable areas of encephalomalacia in the left occipital region and in the right cerebellum. Ventricles stable symmetric and normal. No evidence of intracranial mass or hemorrhage. Nothing to suggest acut e infarction. Extracranial structures are stable and benign. CONCLUSION: No acute intracranial injury . Electronically signed by: Jovany Leyva MD 08/22/2018 11:42 PM EDT
--- NOTE | 2018-08-23 08:07 | P.PNIM ---
Subjective Interval history: Follow-up seizures, fall at home and Parkinson's disease. Patient seen and examined, sitting up in bed eating breakfast without any distress. She states she fell last evening, does not remember what happened, stat head CT was done which did not show any acute abnormality. Posterior head examined showing dried blood with small laceration that seems to be stable. Denies any headache or loss of consciousness. Vision does seem to be intact neurologically. There were no reports of any seizure activity. Patient moved closer to nursing station. We will continue to monitor closely. PT to work with patient today. Physical Exam Vital signs: Vital Signs 08/22/18 12:00 08/22/18 16:00 08/22/18 20:00 Temperature 96.7 F L 96.8 F L 96.6 F L Pulse Rate 62 70 61 Respiratory Rate 16 16 18 Blood Pressure 161/72 H 182/82 H 168/79 H Pulse Oximetry 97 100 94 L 08/22/18 21:22 08/22/18 22:22 08/22/18 23:22 Temperature 95.6 F L 96.4 F L 96.5 F L Pulse Rate 64 80 62 Respiratory Rate 18 16 16 Blood Pressure 174/85 H 191/86 H 212/95 H Pulse Oximetry 95 08/23/18 00:00 08/23/18 04:00 08/23/18 04:22 Temperature 96.5 F L 96.9 F L 96.9 F L Pulse Rate 62 62 62 Respiratory Rate 18 18 18 Blood Pressure 212/95 H 183/76 H 183/76 H Pulse Oximetry 95 98 98 Intake & Output 08/22/18 08/23/18 08/23/18 18:59 06:59 18:59 Intake Total 1880 / 1880 0 / 0 Output Total 400 / 400 Balance 1480 / 1480 0 / 0 Weight 54.6 kg Intake: IV 1160 / 1160 NS Inj 1,000 ML @ 60 mls/hr IV. 1160 / 1160 CONT .[id number] [facility]EX Rx#: [id number] Oral 720 / 720 0 / 0 Output: Urine 400 / 400 Other: # Voids 1 # Incontinent Voids 2 Date of Last Bowel Movement 08/19/18 08/19/18 # Bowel Movements 0 Narrative: GENERAL: Well-developed, well-nourished elderly female patient in [facility]. SKIN: Warm and dry. No rash. Multiple skin abrasions on lower extremities, clean and dry, no drainage. Bandages in place. Sacrum with what appears to be a DTI. No open areas, erythema. states this is from home. Posterior head with dried blood, small laceration that is not bleeding. Intact. [place] removed from right posterior head today. HEAD: Normocephalic. Atraumatic. EYES: Pupils equal and round. No scleral icterus. No injection or drainage. ENT: No nasal bleeding or discharge. Mucous membranes pink and moist. NECK: Supple. Trachea midline. CARDIOVASCULAR: Regular rate and rhythm. S1, S2 noted. No murmur appreciated. RESPIRATORY: No accessory muscle use. Clear to auscultation. Breath sounds equal bilaterally. GASTROINTESTINAL: Abdomen soft, non-tender, nondistended. Normoactive bowel sounds x4. MUSCULOSKELETAL: Extremities without clubbing, cyanosis, or edema. Left hand with some contractures. Bilateral lower extremities with mild foot drop. 4/5 muscle strength. NEUROLOGICAL: Awake and alert. No obvious cranial nerve deficits. Motor grossly within normal limits. 4/5 muscle strength in bilateral upper and lower extremities. Normal speech. PSYCHIATRIC: Appropriate mood and affect; insight and judgment normal. Results - Labs CBC & Chem 7: 08/20/18 16:00 08/21/18 07:10 Laboratory Results - last 24 hr 08/21/18 08/22/18 08/22/18 13:52 05:43 15:05 PT 19.1 H INR 1.9 Triglycerides 131 Cholesterol 145 LDL Cholesterol, Calc 53 HDL Cholesterol 65.5 H Cholesterol/HDL Ratio 2.21 SWAPNIL Screen Pos H - Imaging Impressions Cervical Spine CT 08/22/18 00:00 CONCLUSION: 1. No acute bony abnormality. 2. Degenerative change as described above. The most prominently affected level is the C5-C6 level. Head CT 08/22/18 00:00 CONCLUSION: No acute intracranial injury . Thoracic Spine CT 08/22/18 00:00 CONCLUSION: Negative thoracic spine CT examination. Assessment and Plan - Assessment (1) Seizures Code(s): R56.9 - Unspecified convulsions Status: Acute (2) Frequent falls Code(s): R29.6 - Repeated falls Status: Acute - Plan This is a history of 83-year-old female who presented to the ED with: Fall overnight -Patient sustained a fall overnight. Laceration to posterior head that is closed and intact. A head CT was done which was unremarkable for any acute findings. -Patient is neurologically intact this morning. We will continue to monitor closely. High risk for falls. Move closer to nurses station. Call hayden reach. -Neurology to continue to follow patient during hospitalization. -PT to follow patient today. Multiple witnessed seizures at home Multiple falls at home History of Parkinson's disease History of vertigo History of old CVA -Patient presented status post seizures x 3 at home, witnessed by . -Head CT on presentation reviewed showing no acute abnormalities. Does show some stable encephalomalacia in the left occipital lobe. Unable to obtain MRI secondary to pacemaker in place. -Neurology has been consulted, appreciate input and recommendations. -EEG done and reviewed, no seizures noted. -Continue on Keppra as ordered in ED. -PT evaluation ordered, appreciate input and recommendations, recommendations for rehab. -Orthostatic BPs reviewed, mildly positive, systolic BP dropped from 160's-130' s. -Continue home medications including Sinemet. -Continue on cardiac telemetry, monitor for any arrhythmias. None overnight. -High risk for falls. Seizure precautions. Supportive care. History of atrial fibrillation History of pacemaker placement History of CVA -Continue Coumadin per neurology recommendations. -Continue on cardiac telemetry. -Heart healthy diet as tolerated. DVT Prophylaxis: SCDs. Coumadin. Discharge Planning: Ultimately PT is recommending discharge to rehab. Patient has used up all of her rehab days. Patient will ultimately need to improve enough to go home with home health. Patient sustained a fall last evening, will need to continue with PT efforts.
[2018-08-23] MEDS: Senna/Docusate Sodium 8.6/50 MG Tablet PO SCH ×2 (08:43→21:34)
[2018-08-23] MEDS: Digoxin 125 MCG Tablet PO SCH (08:43)
[2018-08-23] MEDS: levETIRAcetam 500 MG Tablet PO SCH ×2 (08:43→21:34)
[2018-08-23] MEDS: Metoprolol Tartrate 25 MG Tablet PO SCH (08:43)
[2018-08-23] MEDS: Erythromycin 0.5% Opth Oint 3.5 GM Tube LEFT EYE SCH ×4 (08:51→21:34)
[2018-08-23] MEDS: Amantadine 100 MG Capsule PO SCH ×3 (08:51→17:20)
[2018-08-23] MEDS: dilTIAZem CD 120 MG Capsule PO SCH (10:05)
[2018-08-24] MEDS ORDERED: hydrALAZINE 25 MG Tablet PO ONE (05:14)
[2018-08-24] MEDS: Senna/Docusate Sodium 8.6/50 MG Tablet PO SCH ×2 (08:21→20:49)
[2018-08-24] MEDS: dilTIAZem CD 120 MG Capsule PO SCH (08:23)
[2018-08-24] MEDS: Digoxin 125 MCG Tablet PO SCH (08:23)
[2018-08-24] MEDS: Metoprolol Tartrate 25 MG Tablet PO SCH (08:23)
[2018-08-24] MEDS: levETIRAcetam 500 MG Tablet PO SCH ×2 (08:23→20:49)
[2018-08-24] MEDS: Amantadine 100 MG Capsule PO SCH ×3 (08:24→17:25)
[2018-08-24] MEDS: Erythromycin 0.5% Opth Oint 3.5 GM Tube LEFT EYE SCH ×4 (08:31→20:52)
--- NOTE | 2018-08-24 09:16 | P.PNIM ---
Subjective Interval history: Follow-up new-onset seizures and falls. Patient seen and examined, sitting up in bed comfortably no apparent distress. Denies any acute events overnight. Eating well without any abdominal pain nausea or vomiting. Denies any shortness of breath or chest pain. Working with PT 7 days a week, increase mobility and goals to discharge home. Vital signs stable. Afebrile. Physical Exam Vital signs: Vital Signs 08/23/18 11:38 08/23/18 12:00 08/23/18 16:00 Temperature 97.3 F L 96.6 F L Pulse Rate 65 59 L 63 Respiratory Rate 18 16 Blood Pressure 159/78 H 159/75 H Pulse Oximetry 98 95 08/23/18 20:00 08/24/18 00:00 08/24/18 04:00 Temperature 96.0 F L Pulse Rate 62 69 60 Respiratory Rate 20 20 20 Blood Pressure 200/86 H 172/81 H 198/86 H Pulse Oximetry 96 98 97 08/24/18 08:00 Temperature 97.2 F L Pulse Rate 64 Respiratory Rate 17 Blood Pressure 166/71 H Pulse Oximetry 97 Intake & Output 08/23/18 08/24/18 08/24/18 19:59 06:59 18:59 Intake Total Balance Weight Intake: Oral Other: Date of Last Bowel Movement Narrative: GENERAL: Well-developed, well-nourished elderly female patient in [facility]. SKIN: Warm and dry. No rash. Multiple skin abrasions on lower extremities, clean and dry, no drainage. Bandages in place. Sacrum with what appears to be a DTI. No open areas, erythema. states this is from home. Posterior head with dried blood, small laceration that is not bleeding. Intact. HEAD: Normocephalic. Atraumatic. EYES: Pupils equal and round. No scleral icterus. No injection or drainage. ENT: No nasal bleeding or discharge. Mucous membranes pink and moist. NECK: Supple. Trachea midline. CARDIOVASCULAR: Regular rate and rhythm. S1, S2 noted. No murmur appreciated. RESPIRATORY: No accessory muscle use. Clear to auscultation. Breath sounds equal bilaterally. GASTROINTESTINAL: Abdomen soft, non-tender, nondistended. Normoactive bowel sounds x4. MUSCULOSKELETAL: Extremities without clubbing, cyanosis, or edema. Left hand with some contractures. Bilateral lower extremities with mild foot drop. 4/5 muscle strength. NEUROLOGICAL: Awake and alert. No obvious cranial nerve deficits. Motor grossly within normal limits. 4/5 muscle strength in bilateral upper and lower extremities. Normal speech. PSYCHIATRIC: Appropriate mood and affect; insight and judgment normal. Results - Labs CBC & Chem 7: 08/20/18 16:00 08/21/18 07:10 Assessment and Plan - Assessment (1) Seizures Code(s): R56.9 - Unspecified convulsions Status: Acute (2) Frequent falls Code(s): R29.6 - Repeated falls Status: Acute - Plan This is a history of 83-year-old female who presented to the ED with: Multiple witnessed seizures at home Multiple falls at home History of Parkinson's disease History of vertigo History of old CVA -Patient presented status post seizures x 3 at home, witnessed by . -Head CT on presentation reviewed showing no acute abnormalities. Does show some stable encephalomalacia in the left occipital lobe. Unable to obtain MRI secondary to pacemaker in place. -Neurology has been consulted, appreciate input and recommendations. -EEG done and reviewed, no seizures noted. -Continue on Keppra as ordered in ED. -PT evaluation ordered, appreciate input and recommendations, recommendations for rehab. -Orthostatic BPs reviewed, mildly positive, systolic BP dropped from 160's-130' s. -Continue home medications including Sinemet. -Continue on cardiac telemetry, monitor for any arrhythmias. None overnight. -High risk for falls. Seizure precautions. Supportive care. Fall -Patient sustained a fall 2 nights ago. Laceration to posterior head that is closed and intact. A head CT was done which was unremarkable for any acute findings. -Patient is neurologically intact. Will continue to monitor closely. High risk for falls. Moved closer to nurses station. Call [facility] reach. -Neurology to continue to follow patient during hospitalization. -PT to follow patient 7 days a week. History of atrial fibrillation History of pacemaker placement History of CVA -Continue Coumadin per neurology recommendations. -Continue on cardiac telemetry. -Heart healthy diet as tolerated. DVT Prophylaxis: SCDs. Coumadin. Discharge Planning: Ultimately PT is recommending discharge to rehab. Patient has used up all of her rehab days. Patient will ultimately need to improve enough to go home with home health. Continue PT efforts.
--- NOTE | 2018-08-25 08:07 | P.PNIM ---
Subjective Interval history: Follow up new onset seizures, multiple falls at home and Parkinson's disease. Patient seen and examined, sitting up in bed eating in nad. No complaints. No reports of any acute events overnight. Doing well. Continue PT efforts. Afebrile. VSS. Physical Exam Vital signs: Vital Signs 08/24/18 12:00 08/24/18 16:00 08/24/18 20:00 Temperature 97.0 F L 97.6 F 97.4 F L Pulse Rate 62 59 L 59 L Respiratory Rate 18 18 16 Blood Pressure 124/57 L 123/55 L 147/67 H Pulse Oximetry 97 96 96 08/25/18 00:00 08/25/18 04:00 Temperature 97.4 F L 95.6 F L Pulse Rate 63 60 Respiratory Rate 16 16 Blood Pressure 170/80 H 166/68 H Pulse Oximetry 98 96 Intake & Output 08/24/18 08/25/18 08/25/18 18:59 06:59 18:59 Intake Total 600 / 600 Balance 600 / 600 Weight 48.7 kg Intake: Oral 600 / 600 Other: # Voids 4 Date of Last Bowel Movement 08/19/18 08/24/18 # Bowel Movements 1 Narrative: GENERAL: Well-developed, well-nourished elderly female patient in [facility]. SKIN: Warm and dry. No rash. Multiple skin abrasions on lower extremities, clean and dry, no drainage. Bandages in place. Sacrum with what appears to be a DTI. No open areas, erythema. states this is from home. Posterior head with dried blood, small laceration that is not bleeding. Intact. HEAD: Normocephalic. Atraumatic. EYES: Pupils equal and round. No scleral icterus. No injection or drainage. ENT: No nasal bleeding or discharge. Mucous membranes pink and moist. NECK: Supple. Trachea midline. CARDIOVASCULAR: Regular rate and rhythm. S1, S2 noted. No murmur appreciated. RESPIRATORY: No accessory muscle use. Clear to auscultation. Breath sounds equal bilaterally. GASTROINTESTINAL: Abdomen soft, non-tender, nondistended. Normoactive bowel sounds x4. MUSCULOSKELETAL: Extremities without clubbing, cyanosis, or edema. Left hand with some contractures. Bilateral lower extremities with mild foot drop. 4/5 muscle strength. NEUROLOGICAL: Awake and alert. No obvious cranial nerve deficits. Motor grossly within normal limits. 4/5 muscle strength in bilateral upper and lower extremities. Normal speech. PSYCHIATRIC: Appropriate mood and affect; insight and judgment normal. Results - Labs CBC & Chem 7: 08/20/18 16:00 08/21/18 07:10 Assessment and Plan - Assessment (1) Seizures Code(s): R56.9 - Unspecified convulsions Status: Acute (2) Frequent falls Code(s): R29.6 - Repeated falls Status: Acute - Plan This is a history of 83-year-old female who presented to the ED with: Multiple witnessed seizures at home Multiple falls at home History of Parkinson's disease History of vertigo History of old CVA -Patient presented status post seizures x 3 at home, witnessed by . -Head CT on presentation reviewed showing no acute abnormalities. Does show some stable encephalomalacia in the left occipital lobe. Unable to obtain MRI secondary to pacemaker in place. -Neurology has been consulted, appreciate input and recommendations. -EEG done and reviewed, no seizures noted. -Continue on Keppra as ordered in ED. -PT evaluation ordered, appreciate input and recommendations, recommendations for rehab. -Orthostatic BPs reviewed, mildly positive, systolic BP dropped from 160's-130' s. Keep BP mildly elevated. -Continue home medications including Sinemet. -Continue on cardiac telemetry, monitor for any arrhythmias. None overnight. -High risk for falls. Seizure precautions. Supportive care. Fall -Patient sustained a fall during hospitalization. Laceration to posterior head that is clean and intact without bleeding. A head CT was done which was unremarkable for any acute findings. -Patient is neurologically intact. Will continue to monitor closely. High risk for falls. Moved closer to nurses station. -Neurology to continue to follow patient during hospitalization. -PT to follow patient 7 days a week. History of atrial fibrillation History of pacemaker placement History of CVA -Continue Coumadin per neurology recommendations. -Continue on cardiac telemetry. -Heart healthy diet as tolerated. DVT Prophylaxis: SCDs. Coumadin. Discharge Planning: Ultimately PT is recommending discharge to rehab. Patient has used up all of her rehab days. Patient will ultimately need to improve enough to go home with home health. Continue PT efforts.
[2018-08-25] MEDS: Digoxin 125 MCG Tablet PO SCH (08:57)
[2018-08-25] MEDS: dilTIAZem CD 120 MG Capsule PO SCH (08:57)
[2018-08-25] MEDS: Amantadine 100 MG Capsule PO SCH ×3 (08:57→17:25)
[2018-08-25] MEDS: Senna/Docusate Sodium 8.6/50 MG Tablet PO SCH ×2 (08:57→20:58)
[2018-08-25] MEDS: Metoprolol Tartrate 25 MG Tablet PO SCH (08:58)
[2018-08-25] MEDS: Erythromycin 0.5% Opth Oint 3.5 GM Tube LEFT EYE SCH ×4 (08:58→20:57)
[2018-08-25] MEDS: levETIRAcetam 500 MG Tablet PO SCH ×2 (08:58→20:58)
[2018-08-25 13:27] LABS: Anti-Nuclear Antibody Pattern Speckled
[2018-08-26] MEDS: Metoprolol Tartrate 25 MG Tablet PO SCH (08:02)
[2018-08-26] MEDS: Digoxin 125 MCG Tablet PO SCH (08:02)
[2018-08-26] MEDS: dilTIAZem CD 120 MG Capsule PO SCH (08:02)
[2018-08-26] MEDS: levETIRAcetam 500 MG Tablet PO SCH ×2 (08:02→21:22)
[2018-08-26] MEDS: Senna/Docusate Sodium 8.6/50 MG Tablet PO SCH ×2 (08:03→21:22)
[2018-08-26] MEDS: Amantadine 100 MG Capsule PO SCH ×3 (08:03→17:35)
[2018-08-26] MEDS: Erythromycin 0.5% Opth Oint 3.5 GM Tube LEFT EYE SCH ×5 (08:06→21:24)
[2018-08-26 08:59] LABS: Methylmalonic Acid 0.15 nmol/mL (<=0.40)
--- NOTE | 2018-08-26 14:40 | P.PNIM ---
Subjective Interval history: 83-year-old female who is seen and examined today for follow-up on physical deconditioning, unable to care for herself. Patient sitting in chair feeding herself. Patient denies any new complaints. Awaiting patient to clinically improve enough in order to take care of herself at home prior to discharge. Patient remains afebrile Physical Exam Vital signs: Vital Signs 08/25/18 16:00 08/25/18 20:00 08/26/18 00:00 Temperature 97.7 F 96 F L 97.4 F L Pulse Rate 62 59 L 60 Respiratory Rate 20 18 18 Blood Pressure 115/115 H 160/69 H 147/65 H Pulse Oximetry 98 98 96 08/26/18 04:00 08/26/18 08:00 08/26/18 12:00 Temperature 97.4 F L 97.0 F L 98.5 F Pulse Rate 77 67 60 Respiratory Rate 18 20 20 Blood Pressure 165/70 H 162/63 H 122/59 L Pulse Oximetry 95 97 96 Intake & Output 08/25/18 08/26/18 08/26/18 18:59 06:59 18:59 Intake Total 600 / 600 180 / 180 440 / 440 Output Total 220 / 220 200 / 200 400 / 400 Balance 380 / 380 -20 / -20 40 / 40 Weight 48 kg Intake: Oral 600 / 600 180 / 180 440 / 440 Output: Urine 220 / 220 200 / 200 400 / 400 Other: # Voids 1 Date of Last Bowel Movement 08/24/18 08/24/18 Narrative: GENERAL: Well-developed, frail and cachectic, in no acute distress. alert and orientated HEENT: Head is normocephalic without any lesions or masses noted. Bitemporal wasting. Eyes: Extraocular muscles are intact. Conjunctivae were clear. NECK: Supple without any masses. Trachea midline no deviation. No JVD, CARDIAC: Regular rhythm, regular rate. S1/S2 are heard. 2/6 ejection murmur, no gallops or rubs. LUNGS: Clear to auscultation bilaterally. No wheeze, rhonchi or rales. No use of accessory muscles on inspiration or expiration. ABDOMEN: Soft, nontender. Nondistended. Bowel sounds heard in all 4 quadrants. No organomegaly or masses. Negative rebound, negative guarding EXTREMITIES: No edema, pulses are equal bilaterally. No cyanosis or clubbing NEUROLOGY: Mood and affect appear appropriate. Cranial nerves II through XII grossly intact. Moving all extremities, speech is clear Results - Labs CBC & Chem 7: 08/20/18 16:00 08/21/18 07:10 Laboratory Results - last 24 hr 08/21/18 13:52 Thiamine 143 Methylmalonic Acid 0.15 Assessment and Plan - Assessment (1) Seizures Code(s): R56.9 - Unspecified convulsions Status: Acute (2) Frequent falls Code(s): R29.6 - Repeated falls Status: Acute - Plan Multiple witnessed seizures at home Multiple falls at home History of Parkinson's disease History of vertigo History of old CVA -Patient presented status post seizures x 3 at home, witnessed by . -Head CT on presentation reviewed showing no acute abnormalities. Does show some stable encephalomalacia in the left occipital lobe. Unable to obtain MRI secondary to pacemaker in place. -Neurology has been consulted, still awaiting recommendations. -EEG done and reviewed, no seizures noted. -Continued on Keppra -PT evaluation ordered, appreciate input and recommendations, recommendations for rehab. -Patient with positive orthostatic vitals, recommended TERESA hose -Continue home medications including Sinemet. -High risk for falls. Seizure precautions. Supportive care. Fall -Patient sustained a fall during hospitalization. Laceration to posterior head that is clean and intact without bleeding. A head CT was done which was unremarkable for any acute findings. -Patient is neurologically intact. Will continue to monitor closely. High risk for falls. Moved closer to nurses station. -Neurology to continue to follow patient during hospitalization. -PT to follow patient 7 days a week. History of atrial fibrillation History of pacemaker placement History of CVA -Continue Coumadin per neurology recommendations. -Heart healthy diet as tolerated. DVT Prophylaxis: -Patient is on Coumadin, monitor PT/INR -Sequential compression devices Discharge Planning: Patient is unable to go to rehab facility due to exhausted benefits. Patient will require hospitalization until safe discharge can be arranged home with home health care.
[2018-08-27 06:41] LABS: Baso # (Auto) 0.1 th/mm3 (0.0-0.2); Baso % (Auto) 0.8 % (0.0-2.0); Eos # (Auto) 0.6 th/mm3 (0.0-0.4); Eos % (Auto) 7.5 % (0.0-4.0); Hematocrit 41.1 % (35.0-46.0); Hemoglobin 13.6 gm/dL (11.6-15.3); Lymph # (Auto) 1.3 th/mm3 (1.0-4.8); Lymph % (Auto) 16.4 % (9.0-44.0); Mean Corpuscular HGB Conc 33.2 % (32.0-36.0); Mean Corpuscular Hemoglobin 29.7 pg (27.0-34.0); Mean Corpuscular Volume 89.5 fL (80.0-100.0); Mean Platelet Volume 10.9 fL (7.0-11.0); Mono # (Auto) 0.7 th/mm3 (0.0-0.9); Mono % (Auto) 8.7 % (0.0-8.0); Neut # (Auto) 5.1 th/mm3 (1.8-7.7); Neut % (Auto) 66.6 % (16.0-70.0); Platelet Count 191 th/mm3 (150-450); Red Blood Count 4.59 mil/mm3 (4.00-5.30); Red Cell Distribution Width 14.8 % (11.6-17.2); White Blood Count 7.8 th/mm3 (4.0-11.0)
[2018-08-27 06:57] LABS: Calcium 8.6 mg/dL (8.5-10.1); Carbon Dioxide 29.5 meq/L (21.0-32.0)
[2018-08-27] MEDS: Digoxin 125 MCG Tablet PO SCH (09:36)
[2018-08-27] MEDS: dilTIAZem CD 120 MG Capsule PO SCH (09:36)
[2018-08-27] MEDS: Senna/Docusate Sodium 8.6/50 MG Tablet PO SCH ×2 (09:36→21:06)
[2018-08-27] MEDS: levETIRAcetam 500 MG Tablet PO SCH ×2 (09:36→21:05)
[2018-08-27] MEDS: Metoprolol Tartrate 25 MG Tablet PO SCH (09:36)
[2018-08-27] MEDS: Erythromycin 0.5% Opth Oint 3.5 GM Tube LEFT EYE SCH ×4 (09:37→21:06)
[2018-08-27] MEDS: Amantadine 100 MG Capsule PO SCH ×3 (09:49→19:16)
--- NOTE | 2018-08-27 10:33 | P.PNIM ---
Subjective Interval history: 83-year-old female who is seen and examined today for follow-up on unable to care for self. Patient is laying in bed. States that he has no new complaints today. Physical therapy getting ready to work with her. Patient is improving on a daily basis. Vital signs are stable. Patient remains afebrile. Physical Exam Vital signs: Vital Signs 08/26/18 12:00 08/26/18 16:00 08/26/18 20:00 Temperature 98.5 F 98.4 F 96.7 F L Pulse Rate 60 61 94 H Respiratory Rate 20 20 16 Blood Pressure 122/59 L 147/66 H 106/58 L Pulse Oximetry 96 99 96 08/26/18 22:00 08/27/18 00:00 08/27/18 08:00 Temperature 96.4 F L 97 F L Pulse Rate 71 97 H Respiratory Rate 18 16 20 Blood Pressure 139/66 146/70 H Pulse Oximetry 96 Intake & Output 08/26/18 08/27/18 08/27/18 18:59 06:59 18:59 Intake Total 680 / 680 400 / 400 Output Total 600 / 600 Balance 80 / 80 400 / 400 Weight 48.3 kg Intake: Oral 680 / 680 400 / 400 Output: Urine 600 / 600 Other: # Voids 3 Date of Last Bowel Movement 08/24/18 08/24/18 # Bowel Movements 1 Narrative: GENERAL: Well-developed, frail and cachectic, in no acute distress. alert and orientated HEENT: Head is normocephalic without any lesions or masses noted. Bitemporal wasting. Eyes: Extraocular muscles are intact. Conjunctivae were clear. NECK: Supple without any masses. Trachea midline no deviation. No JVD, CARDIAC: Regular rhythm, regular rate. S1/S2 are heard. 2/6 ejection murmur, no gallops or rubs. LUNGS: Clear to auscultation bilaterally. No wheeze, rhonchi or rales. No use of accessory muscles on inspiration or expiration. ABDOMEN: Soft, nontender. Nondistended. Bowel sounds heard in all 4 quadrants. No organomegaly or masses. Negative rebound, negative guarding EXTREMITIES: No edema, pulses are equal bilaterally. No cyanosis or clubbing NEUROLOGY: Mood and affect appear appropriate. Cranial nerves II through XII grossly intact. Moving all extremities, speech is clear Results - Labs CBC & Chem 7: 08/27/18 05:20 08/27/18 05:20 Laboratory Results - last 24 hr 08/27/18 08/27/18 08/27/18 05:20 05:20 05:20 CBC w Diff Auto diff final WBC 7.8 RBC 4.59 Hgb 13.6 Hct 41.1 MCV 89.5 MCH 29.7 MCHC 33.2 RDW 14.8 Plt Count 191 MPV 10.9 Neut % (Auto) 66.6 Lymph % (Auto) 16.4 [place] % (Auto) 8.7 H Eos % (Auto) 7.5 H Baso % (Auto) 0.8 Neut # (Auto) 5.1 Lymph # (Auto) 1.3 [place] # (Auto) 0.7 Eos # (Auto) 0.6 H Baso # (Auto) 0.1 WBC Differential . Differential Comment . PT 20.0 H INR 2.0 Sodium 143 Potassium 4.0 Chloride 105 Carbon Dioxide 29.5 Anion Gap 9 BUN 19 H Creatinine 0.78 Estimated GFR 71 L Random Glucose 85 Calcium 8.6 Assessment and Plan - Assessment (1) Seizures Code(s): R56.9 - Unspecified convulsions Status: Acute (2) Frequent falls Code(s): R29.6 - Repeated falls Status: Acute - Plan Multiple witnessed seizures at home Multiple falls at home History of Parkinson's disease History of vertigo History of old CVA -Patient presented status post seizures x 3 at home, witnessed by . -Head CT on presentation reviewed showing no acute abnormalities. Does show some stable encephalomalacia in the left occipital lobe. Unable to obtain MRI secondary to pacemaker in place. -Neurology has been consulted, still awaiting recommendations. -EEG done and reviewed, no seizures noted. -Continued on Keppra -PT evaluation ordered, appreciate input and recommendations, recommendations for rehab. -Patient with positive orthostatic vitals, recommended TERESA hose -Continue home medications including Sinemet. -High risk for falls. Seizure precautions. Supportive care. Fall -Patient sustained a fall during hospitalization. Laceration to posterior head that is clean and intact without bleeding. A head CT was done which was unremarkable for any acute findings. -Patient is neurologically intact. Will continue to monitor closely. High risk for falls. Moved closer to nurses station. -Neurology to continue to follow patient during hospitalization. -PT to follow patient 7 days a week. History of atrial fibrillation History of pacemaker placement History of CVA -Continue Coumadin per neurology recommendations. -Heart healthy diet as tolerated. DVT Prophylaxis: -Patient is on Coumadin, monitor PT/INR -Sequential compression devices Discharge Planning: Patient is unable to go to rehab facility due to exhausted benefits. Patient will require hospitalization until safe discharge can be arranged home with home health care.
[2018-08-28 07:25] LABS: INR 1.9 Ratio; Prothrombin Time 19.7 sec (9.8-11.6)
--- NOTE | 2018-08-28 07:56 | P.PNIM ---
Subjective Interval history: 83-year-old female seen and examined today for follow-up on unable to care for herself. Patient sitting in bed eating breakfast on her own. Patient thinks that she was going to be discharged home today. Awaiting physical therapy to clear her for safe discharge home with home health care. Patient had episode of elevated blood pressure overnight. Patient remains afebrile. Physical Exam Vital signs: Vital Signs 08/27/18 08:00 08/27/18 12:00 08/27/18 16:00 Temperature 97 F L 96 F L 97.6 F Pulse Rate 97 H 70 67 Respiratory Rate 20 20 20 Blood Pressure 146/70 H 132/60 133/64 Pulse Oximetry 132 H 97 08/27/18 20:20 08/28/18 01:05 08/28/18 04:00 Temperature 96.4 F L 96.7 F L 97.8 F Pulse Rate 65 70 63 Respiratory Rate 20 20 20 Blood Pressure 138/72 206/89 H 163/81 H Pulse Oximetry 97 98 96 Intake & Output 08/27/18 08/28/18 08/28/18 18:59 06:59 18:59 Intake Total 120 / 120 120 / 120 Balance 120 / 120 120 / 120 Weight 49 kg Intake: Oral 120 / 120 120 / 120 Other: # Voids 3 # Urine Diapers 1 # Bowel Movements 1 Narrative: GENERAL: Well-developed, frail and cachectic, in no acute distress. alert and orientated HEENT: Head is normocephalic without any lesions or masses noted. Bitemporal wasting. Eyes: Extraocular muscles are intact. Conjunctivae were clear. NECK: Supple without any masses. Trachea midline no deviation. No JVD, CARDIAC: Regular rhythm, regular rate. S1/S2 are heard. 2/6 ejection murmur, no gallops or rubs. LUNGS: Clear to auscultation bilaterally. No wheeze, rhonchi or rales. No use of accessory muscles on inspiration or expiration. ABDOMEN: Soft, nontender. Nondistended. Bowel sounds heard in all 4 quadrants. No organomegaly or masses. Negative rebound, negative guarding EXTREMITIES: No edema, pulses are equal bilaterally. No cyanosis or clubbing NEUROLOGY: Mood and affect appear appropriate. Cranial nerves II through XII grossly intact. Moving all extremities, speech is clear Results - Labs CBC & Chem 7: 08/27/18 05:20 08/27/18 05:20 Laboratory Results - last 24 hr 08/28/18 06:10 PT 19.7 H INR 1.9 Assessment and Plan - Assessment (1) Seizures Code(s): R56.9 - Unspecified convulsions Status: Acute (2) Frequent falls Code(s): R29.6 - Repeated falls Status: Acute - Plan Multiple witnessed seizures at home Multiple falls at home History of Parkinson's disease History of vertigo History of old CVA -Patient presented status post seizures x 3 at home, witnessed by . -Head CT on presentation reviewed showing no acute abnormalities. Does show some stable encephalomalacia in the left occipital lobe. Unable to obtain MRI secondary to pacemaker in place. -Neurology has been consulted, still awaiting recommendations. -EEG done and reviewed, no seizures noted. -Continued on Keppra -PT evaluation ordered, appreciate input and recommendations, recommendations for rehab. -Patient with positive orthostatic vitals, recommended TERESA hose -Continue home medications including Sinemet. -High risk for falls. Seizure precautions. Supportive care. Fall -Patient sustained a fall during hospitalization. Laceration to posterior head that is clean and intact without bleeding. A head CT was done which was unremarkable for any acute findings. -Patient is neurologically intact. Will continue to monitor closely. High risk for falls. Moved closer to nurses station. -Neurology to continue to follow patient during hospitalization. -PT to follow patient 7 days a week. History of atrial fibrillation History of pacemaker placement History of CVA History of hypertension, labile at this time -Continue Coumadin per neurology recommendations. -Heart healthy diet as tolerated. -Increase Lopressor 25 mg twice daily -Continue Cardizem 120 mg daily -Clonidine as needed DVT Prophylaxis: -Patient is on Coumadin, monitor PT/INR -Sequential compression devices Discharge Planning: Patient is unable to go to rehab facility due to exhausted benefits. Patient will require hospitalization until safe discharge can be arranged home with home health care.
[2018-08-28] MEDS: dilTIAZem CD 120 MG Capsule PO SCH (09:09)
[2018-08-28] MEDS: Amantadine 100 MG Capsule PO SCH ×3 (09:10→17:47)
[2018-08-28] MEDS: Digoxin 125 MCG Tablet PO SCH (09:10)
[2018-08-28] MEDS: Senna/Docusate Sodium 8.6/50 MG Tablet PO SCH ×2 (09:11→20:49)
[2018-08-28] MEDS: levETIRAcetam 500 MG Tablet PO SCH ×2 (09:12→20:49)
[2018-08-28] MEDS: Erythromycin 0.5% Opth Oint 3.5 GM Tube LEFT EYE SCH ×4 (09:13→20:49)
[2018-08-28] MEDS: Metoprolol Tartrate 25 MG Tablet PO SCH ×2 (09:14→20:49)
[2018-08-29 07:08] LABS: INR 1.8 Ratio; Prothrombin Time 17.8 sec (9.8-11.6)
[2018-08-29] MEDS: Senna/Docusate Sodium 8.6/50 MG Tablet PO SCH ×2 (09:12→20:15)
[2018-08-29] MEDS: Amantadine 100 MG Capsule PO SCH ×3 (09:12→17:37)
[2018-08-29] MEDS: Metoprolol Tartrate 25 MG Tablet PO SCH ×2 (09:12→20:14)
[2018-08-29] MEDS: dilTIAZem CD 120 MG Capsule PO SCH (09:12)
[2018-08-29] MEDS: Digoxin 125 MCG Tablet PO SCH (09:13)
[2018-08-29] MEDS: Erythromycin 0.5% Opth Oint 3.5 GM Tube LEFT EYE SCH ×4 (09:13→20:16)
[2018-08-29] MEDS: levETIRAcetam 500 MG Tablet PO SCH ×2 (09:13→20:15)
--- NOTE | 2018-08-29 11:26 | P.PNIM ---
Subjective Interval history: 83-year-old female who is seen today for follow-up on physical deconditioning, unable to care for self. Patient resting comfortably in chair. Patient denies any new complaints. Patient actually enjoys staying here in the hospital and being taken care of as well as we have been doing. Patient does have labile blood pressure.. Patient remains afebrile. Physical Exam Vital signs: Vital Signs 08/28/18 12:00 08/28/18 15:53 08/28/18 20:00 Temperature 96.9 F L 97.4 F L 97.8 F Pulse Rate 61 63 63 Respiratory Rate 20 20 20 Blood Pressure 111/58 L 115/59 L 125/60 Pulse Oximetry 98 99 97 08/29/18 00:00 08/29/18 08:00 Temperature 97.7 F 97.4 F L Pulse Rate 60 106 H Respiratory Rate 18 Blood Pressure 157/73 H 162/75 H Pulse Oximetry 97 96 Intake & Output 08/28/18 08/29/18 08/29/18 18:59 06:59 18:59 Intake Total 720 / 720 60 / 60 Output Total 200 / 200 Balance 520 / 520 60 / 60 Weight 47.7 kg Intake: Oral 720 / 720 60 / 60 Output: Urine 200 / 200 Other: # Voids 1 Date of Last Bowel Movement 08/24/18 # Bowel Movements 3 1 Narrative: GENERAL: Well-developed, frail and cachectic, in no acute distress. alert and orientated HEENT: Head is normocephalic without any lesions or masses noted. Bitemporal wasting. Eyes: Extraocular muscles are intact. Conjunctivae were clear. NECK: Supple without any masses. Trachea midline no deviation. No JVD, CARDIAC: Regular rhythm, regular rate. S1/S2 are heard. 2/6 ejection murmur, no gallops or rubs. LUNGS: Clear to auscultation bilaterally. No wheeze, rhonchi or rales. No use of accessory muscles on inspiration or expiration. ABDOMEN: Soft, nontender. Nondistended. Bowel sounds heard in all 4 quadrants. No organomegaly or masses. Negative rebound, negative guarding EXTREMITIES: No edema, pulses are equal bilaterally. No cyanosis or clubbing NEUROLOGY: Mood and affect appear appropriate. Cranial nerves II through XII grossly intact. Moving all extremities, speech is clear Results - Labs CBC & Chem 7: 08/27/18 05:20 08/27/18 05:20 Laboratory Results - last 24 hr 08/29/18 05:45 PT 17.8 H INR 1.8 Assessment and Plan - Assessment (1) Seizures Code(s): R56.9 - Unspecified convulsions Status: Acute (2) Frequent falls Code(s): R29.6 - Repeated falls Status: Acute - Plan Multiple witnessed seizures at home Multiple falls at home History of Parkinson's disease History of vertigo History of old CVA -Patient presented status post seizures x 3 at home, witnessed by . -Head CT on presentation reviewed showing no acute abnormalities. Does show some stable encephalomalacia in the left occipital lobe. Unable to obtain MRI secondary to pacemaker in place. -Neurology was consulted and made recommendations. -EEG done and reviewed, no seizures noted. -Continued on Keppra -PT evaluation ordered, recommendations for rehab. -Patient with positive orthostatic vitals, recommended TERESA hose -Continue home medications including Sinemet. -High risk for falls. Seizure precautions. Supportive care. Fall -Patient sustained a fall during hospitalization. Laceration to posterior head that is clean and intact without bleeding. A head CT was done which was unremarkable for any acute findings. -Patient is neurologically intact. Will continue to monitor closely. High risk for falls. Moved closer to nurses station. -Neurology to continue to follow patient during hospitalization. -PT to follow patient 7 days a week, twice daily. History of atrial fibrillation History of pacemaker placement History of CVA History of hypertension, labile at this time -Continue Coumadin per neurology recommendations. -Heart healthy diet as tolerated. -Continue Lopressor 25 mg twice daily -Continue Cardizem 120 mg daily -Clonidine as needed DVT Prophylaxis: -Patient is on Coumadin, monitor PT/INR -Sequential compression devices Discharge Planning: Patient is unable to go to rehab facility due to exhausted benefits. Patient will require hospitalization until safe discharge can be arranged home with home health care.
--- NOTE | 2018-08-29 13:44 | P.DIET ---
Nutritional Evaluation Type of nutrition evaluation: follow-up Nutrition screening: Weight Loss > 10 lbs Subjective Subjective Comments: Pt says the vanilla Ensure is "terrible". Pt is receptive to trying chocolate. Objective - Diagnosis new onset seizures, closed head injury - Objective % IBW: 84 Body Weight Used for Calculations: Actual (48.7kg) Energy Needs - Lower Range (kCal/kg): 30 Energy Needs - Upper Range (kCal/kg): 35 Lower Limit kCal/kg (kCals): 1,461 Upper Limit kCal/kg (kCals): 1,705 Lower Limit Protein Factor (Grams per Kg): 1.2 Upper Limit Protein Factor (Grams per Kg): 1.5 Lower Protein Needs (Protein): 58 Upper Protein Needs (Protein): 73 Fluid Factor (ml/kg): 30 Estimated Fluid Needs (ml): 1,461 Dietitian Reviewed in Medical Record: Current diet, Curent medications, Intake & Output, Labs, Medical history Diet Order: Cardiac Oral Diet Intake Amount: Fair 50-75% Objective Comments: PMH: hematoma, hx of AFIS, CVA, high cholesterol, Parkinsons disease, cardiac pacemaker, skin cancer LBM 08/24 Assessment Assessment: Pt continues at nutritional risk r/t reported unplanned wt loss. Variable 50-100 % for most meals. Plan for Ensure Enlive BID(= 350 and 20g protein per serving) and a TRIAL of Mighty Shake QD(= 300 kcal and 9g protein per serving). Labs reviewed. Wt changes noted. Recommendations: 1. Plan for Ensure Enlive BID 2. TRIAL of Mighty Shake QD Dietitian to Monitor: Lab values, Supplement acceptance, Intake & Output, Weight change, PO Intake, Medical course
--- NOTE | 2018-08-30 08:02 | P.PNIM ---
Subjective Interval history: 83-year-old female seen and examined today for follow-up on unable to care for comfort at home. Patient is doing quite well. Patient denies any new complaints. Vital signs are stable. Patient remains afebrile. Awaiting patient to improve physically in order to discharge home with home health care. Physical Exam Vital signs: Vital Signs 08/29/18 12:00 08/29/18 16:00 08/29/18 20:00 Temperature 97.1 F L 97.1 F L 98.3 F Pulse Rate 65 65 60 Respiratory Rate 18 18 18 Blood Pressure 122/70 122/70 138/66 Pulse Oximetry 96 96 99 08/30/18 00:00 Temperature 96.4 F L Pulse Rate 61 Respiratory Rate 18 Blood Pressure 156/91 H Pulse Oximetry 96 Intake & Output 08/29/18 08/30/18 08/30/18 18:59 06:59 18:59 Weight 47.6 kg Other: # Voids 2 4 Date of Last Bowel Movement 08/24/18 # Bowel Movements 0 Narrative: GENERAL: Well-developed, frail and cachectic, in no acute distress. alert and orientated HEENT: Head is normocephalic without any lesions or masses noted. Bitemporal wasting. Eyes: Extraocular muscles are intact. Conjunctivae were clear. NECK: Supple without any masses. Trachea midline no deviation. No JVD, CARDIAC: Regular rhythm, regular rate. S1/S2 are heard. 2/6 ejection murmur, no gallops or rubs. LUNGS: Clear to auscultation bilaterally. No wheeze, rhonchi or rales. No use of accessory muscles on inspiration or expiration. ABDOMEN: Soft, nontender. Nondistended. Bowel sounds heard in all 4 quadrants. No organomegaly or masses. Negative rebound, negative guarding EXTREMITIES: No edema, pulses are equal bilaterally. No cyanosis or clubbing NEUROLOGY: Mood and affect appear appropriate. Cranial nerves II through XII grossly intact. Moving all extremities, speech is clear Results - Labs CBC & Chem 7: 08/27/18 05:20 08/27/18 05:20 Assessment and Plan - Assessment (1) Seizures Code(s): R56.9 - Unspecified convulsions Status: Acute (2) Frequent falls Code(s): R29.6 - Repeated falls Status: Acute - Plan Multiple witnessed seizures at home Multiple falls at home History of Parkinson's disease History of vertigo History of old CVA -Patient presented status post seizures x 3 at home, witnessed by . -Head CT on presentation reviewed showing no acute abnormalities. Does show some stable encephalomalacia in the left occipital lobe. Unable to obtain MRI secondary to pacemaker in place. -Neurology was consulted and made recommendations. -EEG done and reviewed, no seizures noted. -Continued on Keppra -PT evaluation ordered, recommendations for rehab. -Patient with positive orthostatic vitals, recommended TERESA hose -Continue home medications including Sinemet. -High risk for falls. Seizure precautions. Supportive care. Fall -Patient sustained a fall during hospitalization. Laceration to posterior head that is clean and intact without bleeding. A head CT was done which was unremarkable for any acute findings. -Patient is neurologically intact. Will continue to monitor closely. High risk for falls. Moved closer to nurses station. -Neurology to continue to follow patient during hospitalization. -PT to follow patient 7 days a week, twice daily. History of atrial fibrillation History of pacemaker placement History of CVA History of hypertension, improved at this time -Continue Coumadin per neurology recommendations. -Heart healthy diet as tolerated. -Continue Lopressor 25 mg twice daily -Continue Cardizem 120 mg daily -Clonidine as needed DVT Prophylaxis: -Patient is on Coumadin, monitor PT/INR -Sequential compression devices Discussed Condition With: Discussed with the and patient extensively about discharge planning. They are very concerned about her post hospital care. indicates that she continues to get worse with her Parkinson's. He is asking if hospice would be an option. I notified him that I will consult hospice so they can come talk to him and they can make further decisions. Discharge Planning: Patient is unable to go to rehab facility due to exhausted benefits. Patient will require hospitalization until safe discharge can be arranged home with home health care.
[2018-08-30] MEDS: Erythromycin 0.5% Opth Oint 3.5 GM Tube LEFT EYE SCH ×4 (08:47→22:16)
[2018-08-30] MEDS: Metoprolol Tartrate 25 MG Tablet PO SCH ×2 (08:47→22:19)
[2018-08-30] MEDS: dilTIAZem CD 120 MG Capsule PO SCH (08:47)
[2018-08-30] MEDS: Senna/Docusate Sodium 8.6/50 MG Tablet PO SCH ×2 (08:47→22:19)
[2018-08-30] MEDS: Digoxin 125 MCG Tablet PO SCH (08:47)
[2018-08-30] MEDS: Amantadine 100 MG Capsule PO SCH ×3 (08:47→17:55)
[2018-08-30] MEDS: levETIRAcetam 500 MG Tablet PO SCH ×2 (08:48→22:19)
--- NOTE | 2018-08-31 08:39 | P.PNIM ---
Subjective Interval history: 83-year-old female who seen examined today for follow-up on unable to care for self. Patient resting comfortably in bed. Denies any new complaints. Awaiting appropriate discharge planning. Awaiting hospice evaluation. Vital signs are stable over the last 24 hours. Patient remains afebrile. Physical Exam Vital signs: Vital Signs 08/30/18 11:02 08/30/18 16:00 08/30/18 20:00 Temperature 97.6 F 97.3 F L 98.2 F Pulse Rate 69 62 60 Respiratory Rate 16 18 18 Blood Pressure 129/69 115/59 L 131/60 Pulse Oximetry 97 99 99 08/31/18 00:00 Temperature 97.5 F L Pulse Rate 61 Respiratory Rate 18 Blood Pressure 149/67 H Pulse Oximetry 95 Intake & Output 08/30/18 08/31/18 08/31/18 18:59 06:59 18:59 Weight 45.6 kg Other: # Voids 3 1 # Incontinent Voids 3 # Bowel Movements 0 Narrative: GENERAL: Well-developed, frail and cachectic, in no acute distress. alert and orientated HEENT: Head is normocephalic without any lesions or masses noted. Bitemporal wasting. Eyes: Extraocular muscles are intact. Conjunctivae were clear. NECK: Supple without any masses. Trachea midline no deviation. No JVD, CARDIAC: Regular rhythm, regular rate. S1/S2 are heard. 2/6 ejection murmur, no gallops or rubs. LUNGS: Clear to auscultation bilaterally. No wheeze, rhonchi or rales. No use of accessory muscles on inspiration or expiration. ABDOMEN: Soft, nontender. Nondistended. Bowel sounds heard in all 4 quadrants. No organomegaly or masses. Negative rebound, negative guarding EXTREMITIES: No edema, pulses are equal bilaterally. No cyanosis or clubbing NEUROLOGY: Mood and affect appear appropriate. Cranial nerves II through XII grossly intact. Moving all extremities, speech is clear Results - Labs CBC & Chem 7: 08/27/18 05:20 08/27/18 05:20 Assessment and Plan - Assessment (1) Seizures Code(s): R56.9 - Unspecified convulsions Status: Acute (2) Frequent falls Code(s): R29.6 - Repeated falls Status: Acute - Plan Multiple witnessed seizures at home Multiple falls at home History of Parkinson's disease History of vertigo History of old CVA -Patient presented status post seizures x 3 at home, witnessed by . -Head CT on presentation reviewed showing no acute abnormalities. Does show some stable encephalomalacia in the left occipital lobe. Unable to obtain MRI secondary to pacemaker in place. -Neurology was consulted and made recommendations. -EEG done and reviewed, no seizures noted. -Continued on Keppra -PT evaluation ordered, recommendations for rehab. -Patient with positive orthostatic vitals, recommended TERESA hose -Continue home medications including Sinemet. -High risk for falls. Seizure precautions. Supportive care. Fall -Patient sustained a fall during hospitalization. Laceration to posterior head that is clean and intact without bleeding. A head CT was done which was unremarkable for any acute findings. -Patient is neurologically intact. Will continue to monitor closely. High risk for falls. Moved closer to nurses station. -Neurology to continue to follow patient during hospitalization. -PT to follow patient 7 days a week, twice daily. History of atrial fibrillation History of pacemaker placement History of CVA History of hypertension, improved at this time -Continue Coumadin per neurology recommendations. -Heart healthy diet as tolerated. -Continue Lopressor 25 mg twice daily -Continue Cardizem 120 mg daily -Clonidine as needed DVT Prophylaxis: -Patient is on Coumadin, monitor PT/INR -Sequential compression devices Discharge Planning: Patient is unable to go to rehab facility due to exhausted benefits. Patient will require hospitalization until safe discharge can be arranged, awaiting hospice evaluation.
[2018-08-31] MEDS: dilTIAZem CD 120 MG Capsule PO SCH (09:55)
[2018-08-31] MEDS: Amantadine 100 MG Capsule PO SCH (09:55)
[2018-08-31] MEDS: Digoxin 125 MCG Tablet PO SCH (09:55)
[2018-08-31] MEDS: Senna/Docusate Sodium 8.6/50 MG Tablet PO SCH (09:55)
[2018-08-31] MEDS: Erythromycin 0.5% Opth Oint 3.5 GM Tube LEFT EYE SCH (09:55)
[2018-08-31] MEDS: Metoprolol Tartrate 25 MG Tablet PO SCH (09:55)
[2018-08-31] MEDS: levETIRAcetam 500 MG Tablet PO SCH (09:56)
[2018-08-31 09:58] VITALS: RESP 20
[2018-08-31 13:12] VITALS: TEMP 96
--- NOTE | 2018-08-31 14:00 | P.DCO ---
- Diagnosis (1) Generalized weakness Status: Acute (2) Frequent falls Status: Acute (3) Parkinson disease Status: Acute (4) Seizures Status: Acute - Physical Therapy Order: Evaluate and treat, Improve ambulation, Strength and gait training - Occupational Therapy Order: Evaluate and treat, Improve ADL, Gross motor coordination, Fine motor coordination - Home Health Nursing Order: Medical education, Signs/symptoms of disease process, Nursing assessment with vital signs - Home Health Aide Order: To assist in: Bathing and personal care - Cardiology Physician Order: To evaluate: Living conditions/environment, Support services Order: To provide: Long range planning, Community services - Case Management Consult No - Certification I have seen patient Najma Yarbrough on 08/31/18. My clinical findings support the need for the requested home health care services because: Limited mobility due to disease progression, Deconditioned with increased weakness, Limited ability to care for self, High risk of falls I certify that my clinical findings support that this patient is homebound because: Unsteady gait/balance, Unsafe to leave home unassisted, Need for psychosocial assistance, Unable to use public transportation
--- NOTE | 2018-08-31 14:57 | P.DS ---
Date of admission: 08/21/18 14:32 Primary care physician: Paola Bender MD Attending physician on discharge: Viraj Hassan Anticipated date of discharge: 08/31/18 Brief History from admission: This is a pleasant 83-year-old female patient with a known medical history of Parkinson's disease, RA, history of CVA x 2, atrial fibrillation, CAD with CABD , thyroid disease, DM who presented to the ED status post seizures x 3 at home yesterday. Patient was brought in by private vehicle last evening for multiple seizures and falls at home. Has been states that the patient was lying in bed and he witnessed his seizure, states that she was out of it for several minutes and then woke up somewhat confused. Over the past couple days she has been in and out of confusion with reports of multiple falls at home. Supposedly patient presented to the ED on Saturday night after sustaining a laceration to her occipital portion of her scalp, james were placed and she was released home. Patient does have a history of stroke in the past, has been following with Dr. Reddy as well as , for history of stroke as well as Parkinson's disease. Patient also follows with PCP Dr. Bender, whom the is actually called yesterday updating her about multiple falls at home. At that time Dr. Bender had stopped her Coumadin and advised patient to present to the ED. At the time of assessment, patient is sitting up in bed comfortably no apparent distress. Awake and alert, has been at bedside. No reports of any seizures overnight. Patient is more awake today, states that she has had some confusion as well as slurring of this speech over the past couple days. Denies any recent illness including fever, chills, cough, shortness of breath, dumping, nausea, vomiting, diarrhea or dysuria. It should be noted that patient has had some decline with her Parkinson's symptoms including inability to find her mouth, multiple falls and slow eye movements. She does have history of some vertigo which she states she has been somewhat dizzy. CT on presentation was negative for any acute findings. Patient has a pacemaker to undergo an MRI. EEG is done awaiting results. Neurology has been consulted. DS: Diagnosis - Discharge Diagnosis (1) Generalized weakness Status: Acute (2) Frequent falls Status: Acute (3) Parkinson disease Status: Acute (4) Seizures Status: Acute DS: Summary Hospital Course: Multiple witnessed seizures at home Multiple falls at home History of Parkinson's disease History of vertigo History of old CVA -Patient presented status post seizures x 3 at home, witnessed by . -Head CT on presentation reviewed showing no acute abnormalities. Does show some stable encephalomalacia in the left occipital lobe. Unable to obtain MRI secondary to pacemaker in place. -Neurology follow the patient during her stay in the hospital made recommendations -EEG done and reviewed, no seizures noted. -Continued on Keppra -Patient with positive orthostatic vitals, recommended TERESA hose -Continue home medications for Parkinson's to include Sinemet. Fall -Patient sustained a fall during hospitalization. Laceration to posterior head that is clean and intact without bleeding. A head CT was done which was unremarkable for any acute findings. -Patient is neurologically intact. Likely worsening ability to walk and transfer secondary to worsening of her Parkinson's. -Will continue to monitor closely. High risk for falls. Moved closer to nurses station. -Physical therapy follow the patient 7 days a week twice daily. Patient walking 200-450 feet on a daily basis. Minimum to moderate assist. -Hospice was consulted for further evaluation. They met with hospice today who indicated that patient and does not want to pursue hospice care at this time. They want to continue aggressive management -Case management discussed with patient extensively that we can arrange home with home health care to include nursing, physical therapy, occupational therapy , would also recommend case management consult for long-term needs History of atrial fibrillation History of pacemaker placement History of CVA History of hypertension, improved at this time -Heart healthy diet as tolerated. -Continue Lopressor 25 mg twice daily -Continue Cardizem 120 mg daily -Continue Coumadin for anticoagulation - Time Spent with Patient Total time spent providing and/or coordinating discharge services: Greater than 30 minutes - Quality: VTE Deep Vein Thrombosis/Pulmonary Embolism Present on Admission: No Exam Vital signs: Vital Signs 08/30/18 16:00 08/30/18 20:00 08/31/18 00:00 Temperature 97.3 F L 98.2 F 97.5 F L Pulse Rate 62 60 61 Respiratory Rate 18 18 18 Blood Pressure 115/59 L 131/60 149/67 H Pulse Oximetry 99 99 95 08/31/18 08:00 08/31/18 12:00 Temperature 96.7 F L 96 F L Pulse Rate 65 77 Respiratory Rate 20 20 Blood Pressure 166/78 H 157/74 H Pulse Oximetry 98 Intake & Output 08/30/18 08/31/18 08/31/18 18:59 06:59 18:59 Weight 45.6 kg Other: # Voids 3 1 # Incontinent Voids 3 # Bowel Movements 0 Narrative: GENERAL: Well-developed, frail and cachectic, in no acute distress. alert and orientated HEENT: Head is normocephalic without any lesions or masses noted. Bitemporal wasting. Eyes: Extraocular muscles are intact. Conjunctivae were clear. NECK: Supple without any masses. Trachea midline no deviation. No JVD, CARDIAC: Regular rhythm, regular rate. S1/S2 are heard. 2/6 ejection murmur, no gallops or rubs. LUNGS: Clear to auscultation bilaterally. No wheeze, rhonchi or rales. No use of accessory muscles on inspiration or expiration. ABDOMEN: Soft, nontender. Nondistended. Bowel sounds heard in all 4 quadrants. No organomegaly or masses. Negative rebound, negative guarding EXTREMITIES: No edema, pulses are equal bilaterally. No cyanosis or clubbing NEUROLOGY: Mood and affect appear appropriate. Cranial nerves II through XII grossly intact. Moving all extremities, speech is clear Results Procedures completed during hospitalization: EEG IMPRESSION: Mild slowing of the background may be due to sedation medicine effect or mild encephalopathy. No epileptiform features seen in this one recording. Clinical correlation. - Impressions ITS Impressions Cervical Spine CT 08/22/18 00:00 CONCLUSION: 1. No acute bony abnormality. 2. Degenerative change as described above. The most prominently affected level is the C5-C6 level. Head CT 08/22/18 00:00 CONCLUSION: No acute intracranial injury . Thoracic Spine CT 08/22/18 00:00 CONCLUSION: Negative thoracic spine CT examination. Discharge Plan - Discharge Disposition Patient Disposition: Disch W/Home Health Service - Discharge Condition Condition: Stable - Discharge Order Discharge Orders: Discharge Order (Routine); Ordered 08/31/18 Ordered By: Daniel Rincon - Discharge Details Anticipated Discharge Date: 08/22/18 Discharge Comment: Discharge home with home health care once arrangements made by case management - Physicians Team Primary Care Provider: Paola Bender Attending Provider: Viraj Hassan Other Providers: Theron Reddy MD
[2018-08-31 16:13] VITALS: BP 134/66; PULSE 68; O2SAT 96
== END 2018-08-31 15:14 | disposition home health service (06) ==
LOC: PHED 13:54 → INTOOBSV 19:55 → PHEDA 19:55 → PH3 22:46
PROVIDERS: ADMIT Hospitalist; ATTEND Hospitalist